=== PATIENT | female | born 1985 | race Caucasian/White ===

== ENCOUNTER 2017-08-20 00:26 | Observation (INO) | payer OTHER ==
[2017-08-20 00:56] LABS: HEMATOCRIT 40.4 % (36.0-47.0); HEMOGLOBIN 13.9 g/dl (12.0-16.0); MEAN CORPUSCULAR HEMOGLOBIN 30.5 pg (27.0-33.0); MEAN CORPUSCULAR HGB CONC 34.4 g/dl (32.0-36.5); MEAN CORPUSCULAR VOLUME 88.6 fl (80.0-96.0); PLATELET COUNT, AUTOMATED 349 10^3/uL (150-450); RED BLOOD COUNT 4.56 10^6/uL (4.00-5.40); RED CELL DISTRIBUTION WIDTH 13.3 % (11.5-14.5); WHITE BLOOD COUNT 9.8 10^3/uL (4.0-10.0)
[2017-08-20] MEDS: NS 1,000 ML IV (01:00)
[2017-08-20 01:30] LABS: AMPHETAMINES LEVEL URINE NEGATIVE (NEGATIVE); BARBITURATES URINE NEGATIVE (NEGATIVE); BENZODIAZEPINES URINE NEGATIVE (NEGATIVE); CANNABINOIDS URINE POSITIVE (NEGATIVE); COCAINE METABOLITE URINE POSITIVE (NEGATIVE); METHADONE URINE NEGATIVE (NEGATIVE); OPIATES URINE NEGATIVE (NEGATIVE); PHENCYCLIDINE URINE NEGATIVE (NEGATIVE)
[2017-08-20 01:35] LABS: ALBUMIN 3.8 GM/DL (3.2-5.2); ALBUMIN/GLOBULIN RATIO 1.15 (1.00-1.93); ALKALINE PHOSPHATASE 46 U/L (45-117); ALT/SGPT 23 U/L (12-78); ANION GAP 11 MEQ/L (8-16); AST/SGOT 12 U/L (7-37); BILIRUBIN,DIRECT < 0.1 MG/DL (0.0-0.2); BILIRUBIN,TOTAL 0.1 MG/DL (0.2-1.0); BLOOD UREA NITROGEN 13 MG/DL (7-18); CALCIUM LEVEL 8.5 MG/DL (8.5-10.1); CARBON DIOXIDE LEVEL 23 MEQ/L (21-32); CHLORIDE LEVEL 106 MEQ/L (98-107); CREATININE FOR GFR 0.91 MG/DL (0.55-1.02); ETHYL ALCOHOL (ETHANOL) 0.157 % (0.000-0.010); GLOMERULAR FILTRATION RATE > 60.0 (>60); GLUCOSE, FASTING 95 MG/DL (70-105); POTASSIUM SERUM 3.7 MEQ/L (3.5-5.1); SALICYLATE LEVEL < 1.7 MG/DL (5.0-30.0); SODIUM LEVEL 140 MEQ/L (136-145); THYROID STIMULATING HORMONE 0.854 uIU/ML (0.358-3.740); TOTAL PROTEIN 7.1 GM/DL (6.4-8.2)
[2017-08-20 01:36] LABS: ACETAMINOPHEN LEVEL < 2.0 UG/ML (10.0-30.0)
[2017-08-20 02:02] LABS: CPK CREATINE PHOSPHOKINASE 117 U/L (26-192); MB/CK RELATIVE INDEX 0.85 (< OR =4); TROPONIN I < 0.02 NG/ML (< 0.10)
[2017-08-20] MEDS ORDERED: BISACODYL 5 MG TAB PO (03:30)
[2017-08-20] MEDS: ONDANSETRON 4MG/2ML VIAL (J2405) IV (06:49)
[2017-08-20] MEDS: ACETAMINOPHEN TAB 650MG DOSE (2X325MG) PO (06:50)
[2017-08-20] MEDS: TOPIRAMATE (TopAMAX) 25 MG TAB PO (09:26)
[2017-08-20] MEDS: CitaloPRAM (CeleXA) 20 MG TAB PO (09:27)
[2017-08-20] MEDS: ENOXAPARIN 40 MG/0.4 ML SYRINGE (J1650) SC (09:27)
[2017-08-20] MEDS: SUMAtriptan SUCCINATE 25 MG TAB PO (09:27)
[2017-08-20] MEDS: SENOKOT S TAB PO ×2 (09:27→21:00)
[2017-08-20] MEDS: PERCOCET 5MG/325MG TAB PO (10:26)
[2017-08-20 12:30] LABS: KETONE, URINE AUTO RFX NEGATIVE (NEGATIVE); LEUKOCYTE ESTERASE UR AUTO RFX NEGATIVE (NEGATIVE); MUCUS, URINE RFX SMALL (NEGATIVE); NITRITE, URINE AUTO RFX NEGATIVE (NEGATIVE); RBC, URINE AUTO RFX 1 /HPF (0-3); SPECIFIC GRAVITY UR AUTO RFX 1.011 (1.002-1.035); SQUAM EPITHELIAL CELL UR AURFX 1 /HPF (0-6); WBC, URINE AUTO RFX 0 /HPF (0-3)
[2017-08-20] MEDS: hydrOXYzine 25 MG TAB PO (21:13)
[2017-08-21 07:18] LABS: BASO % 0.4 % (0.0-1.0); EOS # 0.3 10^3/uL (0.0-0.50); EOS % 3.5 % (0.0-3.0); HEMATOCRIT 40.5 % (36.0-47.0); HEMOGLOBIN 13.5 g/dl (12.0-16.0); IMMATURE GRANULOCYTE % 0.3 % (0-0); LYMPH # 2.8 10^3/uL (1.5-6.5); LYMPH % 40.3 % (24.0-44.0); MEAN CORPUSCULAR HEMOGLOBIN 29.9 pg (27.0-33.0); MEAN CORPUSCULAR HGB CONC 33.3 g/dl (32.0-36.5); MEAN CORPUSCULAR VOLUME 89.8 fl (80.0-96.0); MONO # 0.6 10^3/uL (0.0-0.8); MONO % 8.5 % (0.0-5.0); NEUTROPHILS # 3.3 10^3/uL (1.8-7.7); PLATELET COUNT, AUTOMATED 274 10^3/uL (150-450); RED BLOOD COUNT 4.51 10^6/uL (4.00-5.40); RED CELL DISTRIBUTION WIDTH 13.5 % (11.5-14.5); WHITE BLOOD COUNT 7.1 10^3/uL (4.0-10.0)
[2017-08-21 07:54] LABS: ANION GAP 5 MEQ/L (8-16); BLOOD UREA NITROGEN 12 MG/DL (7-18); CALCIUM LEVEL 8.4 MG/DL (8.5-10.1); CARBON DIOXIDE LEVEL 29 MEQ/L (21-32); CHLORIDE LEVEL 107 MEQ/L (98-107); CREATININE FOR GFR 0.82 MG/DL (0.55-1.02); GLOMERULAR FILTRATION RATE > 60.0 (>60); GLUCOSE, FASTING 89 MG/DL (70-105); POTASSIUM SERUM 4.2 MEQ/L (3.5-5.1); SODIUM LEVEL 141 MEQ/L (136-145)
[2017-08-21] MEDS: SENOKOT S TAB PO (08:57)
[2017-08-21] MEDS: TOPIRAMATE (TopAMAX) 25 MG TAB PO (08:57)
[2017-08-21] MEDS: ENOXAPARIN 40 MG/0.4 ML SYRINGE (J1650) SC (08:57)
[2017-08-21] MEDS: CitaloPRAM (CeleXA) 20 MG TAB PO (08:57)
== END 2017-08-21 15:26 ==
LOC: M ED 00:26 → M ED INP 00:27
DX: T43.8X2A Poisoning by other psychotropic drugs, intentional self-harm, initial encounter (principal); T43.592A Poisoning by other antipsychotics and neuroleptics, intentional self-harm, initial encounter; T51.0X2A Toxic effect of ethanol, intentional self-harm, initial encounter; F12.120 Cannabis abuse with intoxication, uncomplicated; F14.120 Cocaine abuse with intoxication, uncomplicated; R51 Headache; R06.00 Dyspnea, unspecified; F32.9 Major depressive disorder, single episode, unspecified; F19.10 Other psychoactive substance abuse, uncomplicated; F43.10 Post-traumatic stress disorder, unspecified; Z88.5 Allergy status to narcotic agent; Z79.899 Other long term (current) drug therapy; F17.210 Nicotine dependence, cigarettes, uncomplicated
CPT/HCPCS: 96372

== ENCOUNTER 2017-08-21 15:27 | Inpatient (IN) | payer MEDICAID ==
[2017-08-21] MEDS: NICOTINE 21MG/24HR 1 EA TRANSDERMAL TD (09:00)
[2017-08-21] MEDS ORDERED: MAALOX 30 ML SUSP *UDC PO (17:45)
[2017-08-21] MEDS: hydrOXYzine 25 MG TAB PO (18:10)
[2017-08-21] MEDS: ACETAMINOPHEN TAB 650MG DOSE (2X325MG) PO (18:10)
[2017-08-21] MEDS: traZODone 50 MG TAB PO (21:27)
[2017-08-21] MEDS: busPIRone 10 MG TAB PO (21:27)
[2017-08-21] MEDS: PRAZOSIN 1 MG CAP PO (21:28)
[2017-08-22] MEDS: TOPIRAMATE (TopAMAX) 25 MG TAB PO (08:30)
[2017-08-22] MEDS: CitaloPRAM (CeleXA) 20 MG TAB PO (08:30)
[2017-08-22] MEDS: busPIRone 10 MG TAB PO ×2 (08:30→21:18)
[2017-08-22] MEDS: GABAPENTIN 300 MG CAP PO ×3 (08:30→21:18)
[2017-08-22] MEDS: hydrOXYzine 25 MG TAB PO ×3 (08:30→21:40)
[2017-08-22] MEDS: NICOTINE 21MG/24HR 1 EA TRANSDERMAL TD (08:30)
[2017-08-22] MEDS: ACETAMINOPHEN TAB 650MG DOSE (2X325MG) PO (17:36)
[2017-08-22] MEDS: PRAZOSIN 1 MG CAP PO (21:18)
[2017-08-22] MEDS: MOM 30ML SUSPENSION UDC PO (21:27)
[2017-08-22] MEDS: traZODone 50 MG TAB PO (21:39)
[2017-08-22] MEDS: SODIUM CHLORIDE NASAL 0.65% SPRAY BTL (OCEAN) (22:03)
[2017-08-23] MEDS: ACETAMINOPHEN TAB 650MG DOSE (2X325MG) PO (02:39)
[2017-08-23] MEDS: SODIUM CHLORIDE NASAL 0.65% SPRAY BTL (OCEAN) (08:43)
[2017-08-23] MEDS: NICOTINE 21MG/24HR 1 EA TRANSDERMAL TD (08:43)
[2017-08-23] MEDS: busPIRone 10 MG TAB PO (08:43)
[2017-08-23] MEDS: TOPIRAMATE (TopAMAX) 25 MG TAB PO (08:43)
[2017-08-23] MEDS: GABAPENTIN 300 MG CAP PO (08:44)
[2017-08-23] MEDS: hydrOXYzine 25 MG TAB PO (08:44)
[2017-08-23] MEDS: CitaloPRAM (CeleXA) 20 MG TAB PO (08:44)
[2017-08-23] MEDS: INFLUENZA QUADRIVALENT PF VACCINE 0.5ML SYRINGE (90686) IM (12:15)
== END 2017-08-23 14:20 | disposition home or self-care (01) | DRG 882 ==
LOC: M PSY 15:27
DX: F43.10 Post-traumatic stress disorder, unspecified (principal); F31.9 Bipolar disorder, unspecified; F10.10 Alcohol abuse, uncomplicated; Z79.899 Other long term (current) drug therapy; Z88.8 Allergy status to other drugs, medicaments and biological substances; F17.210 Nicotine dependence, cigarettes, uncomplicated

== ENCOUNTER 2017-10-05 21:29 | Emergency (ER) | payer OTHER, BC, MEDICAID ==
[2017-10-05 22:15] LABS: HEMATOCRIT 44.9 % (36.0-47.0); MEAN CORPUSCULAR HEMOGLOBIN 29.8 pg (27.0-33.0); MEAN CORPUSCULAR HGB CONC 33.4 g/dl (32.0-36.5); MEAN CORPUSCULAR VOLUME 89.1 fl (80.0-96.0); PLATELET COUNT, AUTOMATED 320 10^3/uL (150-450); RED BLOOD COUNT 5.04 10^6/uL (4.00-5.40); RED CELL DISTRIBUTION WIDTH 13.2 % (11.5-14.5); WHITE BLOOD COUNT 11.2 10^3/uL (4.0-10.0)
[2017-10-05 22:40] LABS: AMPHETAMINES LEVEL URINE NEGATIVE (NEGATIVE); BARBITURATES URINE NEGATIVE (NEGATIVE); BENZODIAZEPINES URINE NEGATIVE (NEGATIVE); CANNABINOIDS URINE POSITIVE (NEGATIVE); COCAINE METABOLITE URINE POSITIVE (NEGATIVE); METHADONE URINE NEGATIVE (NEGATIVE); OPIATES URINE NEGATIVE (NEGATIVE); PHENCYCLIDINE URINE NEGATIVE (NEGATIVE)
[2017-10-05 22:51] LABS: ALBUMIN 3.9 GM/DL (3.2-5.2); ALBUMIN/GLOBULIN RATIO 1.26 (1.00-1.93); ALKALINE PHOSPHATASE 46 U/L (45-117); ALT/SGPT 33 U/L (12-78); ANION GAP 9 MEQ/L (8-16); AST/SGOT 17 U/L (7-37); BILIRUBIN,DIRECT < 0.1 MG/DL (0.0-0.2); BILIRUBIN,TOTAL 0.2 MG/DL (0.2-1.0); BLOOD UREA NITROGEN 9 MG/DL (7-18); CALCIUM LEVEL 8.5 MG/DL (8.5-10.1); CARBON DIOXIDE LEVEL 26 MEQ/L (21-32); CHLORIDE LEVEL 110 MEQ/L (98-107); CREATININE FOR GFR 0.86 MG/DL (0.55-1.30); ETHYL ALCOHOL (ETHANOL) 0.191 % (0.000-0.010); GLOMERULAR FILTRATION RATE > 60.0 (>60); GLUCOSE, FASTING 111 MG/DL (70-100); POTASSIUM SERUM 3.7 MEQ/L (3.5-5.1); SALICYLATE LEVEL 2.7 MG/DL (5.0-30.0); SODIUM LEVEL 145 MEQ/L (136-145)
[2017-10-05 22:54] LABS: ACETAMINOPHEN LEVEL < 2.0 UG/ML (10.0-30.0)
[2017-10-06] MEDS: ACETAMINOPHEN TAB 650MG DOSE (2X325MG) PO (00:13)
== END 2017-10-06 04:52 | disposition home or self-care (01) ==
LOC: M ED 10-06 04:52
DX: F10.10 Alcohol abuse, uncomplicated (principal); F12.10 Cannabis abuse, uncomplicated; F14.10 Cocaine abuse, uncomplicated; F32.9 Major depressive disorder, single episode, unspecified; F43.10 Post-traumatic stress disorder, unspecified; F17.200 Nicotine dependence, unspecified, uncomplicated; Z79.899 Other long term (current) drug therapy; Z88.6 Allergy status to analgesic agent
CPT/HCPCS: 80320

== ENCOUNTER 2017-12-26 23:16 | Emergency (ER) | payer OTHER ==
[2017-12-27] MEDS: NAPROXEN 250 MG TAB PO (03:35)
== END 2017-12-27 03:55 | disposition home or self-care (01) ==
LOC: M ED 23:16
DX: M25.572 Pain in left ankle and joints of left foot (principal); R29.6 Repeated falls; F17.210 Nicotine dependence, cigarettes, uncomplicated; Z88.5 Allergy status to narcotic agent; Z79.899 Other long term (current) drug therapy
CPT/HCPCS: 73630

== ENCOUNTER 2018-02-27 20:09 | Emergency (ER) | payer OTHER ==
[2018-02-27 21:05] LABS: BASO % 0.3 % (0.0-1.0); EOS # 0.2 10^3/uL (0.0-0.50); EOS % 2.1 % (0.0-3.0); HEMATOCRIT 42.6 % (36.0-47.0); IMMATURE GRANULOCYTE % 0.3 % (0-3.0); LYMPH # 4.2 10^3/uL (1.5-4.5); MEAN CORPUSCULAR HEMOGLOBIN 29.9 pg (27.0-33.0); MEAN CORPUSCULAR HGB CONC 32.9 g/dl (32.0-36.5); MEAN CORPUSCULAR VOLUME 90.8 fl (80.0-96.0); MONO # 0.7 10^3/uL (0.0-0.8); MONO % 7.3 % (0.0-5.0); NEUTROPHILS # 4.6 10^3/uL (1.8-7.7); PLATELET COUNT, AUTOMATED 313 10^3/uL (150-450); RED BLOOD COUNT 4.69 10^6/uL (4.00-5.40); RED CELL DISTRIBUTION WIDTH 13.2 % (11.5-14.5); WHITE BLOOD COUNT 9.8 10^3/uL (4.0-10.0)
[2018-02-27 21:49] LABS: CONTROL LINE HCG INT CTR LINE PRESENT; HCG, SERUM QUALITATIVE NEGATIVE (NEGATIVE)
[2018-02-27] MEDS: NS 1,000 ML IV (21:53)
[2018-02-27] MEDS: ONDANSETRON 4MG/2ML VIAL (J2405) IV (21:53)
[2018-02-27] MEDS: MORPHINE 4 MG/ML 1ML VIAL/SYRINGE (J2270) IV (21:55)
[2018-02-27 21:59] LABS: ALBUMIN 3.6 GM/DL (3.2-5.2); ALBUMIN/GLOBULIN RATIO 1.24 (1.00-1.93); ALKALINE PHOSPHATASE 52 U/L (45-117); ALT/SGPT 32 U/L (12-78); AMYLASE 25 U/L (25-115); ANION GAP 7 MEQ/L (8-16); AST/SGOT 17 U/L (7-37); BILIRUBIN,DIRECT < 0.1 MG/DL (0.0-0.2); BILIRUBIN,TOTAL 0.3 MG/DL (0.2-1.0); BLOOD UREA NITROGEN 14 MG/DL (7-18); CALCIUM LEVEL 8.6 MG/DL (8.5-10.1); CARBON DIOXIDE LEVEL 28 MEQ/L (21-32); CHLORIDE LEVEL 107 MEQ/L (98-107); CREATININE FOR GFR 0.88 MG/DL (0.55-1.30); GLOMERULAR FILTRATION RATE > 60.0 (>60); GLUCOSE, FASTING 88 MG/DL (70-100); LIPASE 106 U/L (73-393); POTASSIUM SERUM 4.1 MEQ/L (3.5-5.1); SODIUM LEVEL 142 MEQ/L (136-145); TOTAL PROTEIN 6.5 GM/DL (6.4-8.2)
[2018-02-27] MEDS: NORCO, ANEXSIA 5/325MG TABLET (HYDROcodone/ACETAMINOPHEN) PO (23:33)
== END 2018-02-27 23:42 | disposition home or self-care (01) ==
LOC: M ED 20:09
DX: K80.20 Calculus of gallbladder without cholecystitis without obstruction (principal); G43.909 Migraine, unspecified, not intractable, without status migrainosus; F33.9 Major depressive disorder, recurrent, unspecified; K21.9 Gastro-esophageal reflux disease without esophagitis; Z79.899 Other long term (current) drug therapy; Z88.8 Allergy status to other drugs, medicaments and biological substances; F17.210 Nicotine dependence, cigarettes, uncomplicated
CPT/HCPCS: J2270

== ENCOUNTER → 2018-03-15 | Outpatient (REF) | payer OTHER ==
[2018-03-15 13:31] LABS: CONTROL LINE UCG INT CTR LINE PRESENT; URINE PREG TEST NEGATIVE (NEGATIVE)
== END ==
LOC: M SFHCPLAZ 13:04
DX: E66.01 Morbid (severe) obesity due to excess calories (principal)

== ENCOUNTER → 2018-03-22 | Outpatient (REF) | payer OTHER ==
[2018-03-22 10:49] LABS: BASO % 0.2 % (0.0-1.0); EOS # 0.2 10^3/uL (0.0-0.50); EOS % 2.6 % (0.0-3.0); HEMATOCRIT 45.9 % (36.0-47.0); HEMOGLOBIN 15.1 g/dl (12.0-15.5); IMMATURE GRANULOCYTE % 0.3 % (0-3.0); LYMPH # 3.1 10^3/uL (1.5-4.5); MEAN CORPUSCULAR HGB CONC 32.9 g/dl (32.0-36.5); MEAN CORPUSCULAR VOLUME 91.3 fl (80.0-96.0); MONO # 0.6 10^3/uL (0.0-0.8); MONO % 6.7 % (0.0-5.0); NEUTROPHILS # 4.9 10^3/uL (1.8-7.7); NEUTROPHILS % 55.2 % (36.0-66.0); PLATELET COUNT, AUTOMATED 303 10^3/uL (150-450); RED BLOOD COUNT 5.03 10^6/uL (4.00-5.40); RED CELL DISTRIBUTION WIDTH 13.7 % (11.5-14.5)
[2018-03-22 11:10] LABS: ESTIMATED AVERAGE GLUCOSE 103 MG/DL (60-110); HEMOGLOBIN A1c 5.2 %
[2018-03-22 11:18] LABS: CONTROL LINE HCG INT CTR LINE PRESENT; HCG, SERUM QUALITATIVE NEGATIVE (NEGATIVE)
[2018-03-22 11:34] LABS: ALBUMIN 3.8 GM/DL (3.2-5.2); ALBUMIN/GLOBULIN RATIO 1.09 (1.00-1.93); ALKALINE PHOSPHATASE 51 U/L (45-117); ALT/SGPT 31 U/L (12-78); ANION GAP 4 MEQ/L (8-16); AST/SGOT 20 U/L (7-37); BILIRUBIN,TOTAL 0.4 MG/DL (0.2-1.0); BLOOD UREA NITROGEN 13 MG/DL (7-18); CALCIUM LEVEL 8.8 MG/DL (8.5-10.1); CARBON DIOXIDE LEVEL 30 MEQ/L (21-32); CHLORIDE LEVEL 107 MEQ/L (98-107); CHOLESTEROL LEVEL 193 MG/DL (<200); CHOLESTEROL RISK RATIO 4.488 (<5); FREE T4 0.98 NG/DL (0.76-1.46); GLOMERULAR FILTRATION RATE > 60.0 (>60); GLUCOSE, FASTING 78 MG/DL (70-100); HDL CHOLESTEROL 43 MG/DL (>40); LDL CHOLESTEROL 120.6 MG/DL (<100); NON-HDL-C 150 MG/DL; POTASSIUM SERUM 3.9 MEQ/L (3.5-5.1); SODIUM LEVEL 141 MEQ/L (136-145); TOTAL PROTEIN 7.3 GM/DL (6.4-8.2); TRIGLYCERIDES LEVEL 147 MG/DL (<150)
[2018-03-22 12:00] LABS: CONTROL LINE UCG INT CTR LINE PRESENT; URINE PREG TEST NEGATIVE (NEGATIVE)
== END ==
LOC: M SFHCPLAZ 09:06
DX: I10 Essential (primary) hypertension (principal); E66.01 Morbid (severe) obesity due to excess calories
CPT/HCPCS: 84443

== ENCOUNTER 2018-03-30 10:26 | Day surgery (SDC) | payer OTHER ==
[2018-03-30] MEDS: NS 1,000 ML IV (11:09)
[2018-03-30] MEDS ORDERED: LIDOCAINE 2% INJ 100 MG/5 ML SDV (FOR ANES.) As Ordered (11:17)
[2018-03-30] MEDS ORDERED: PROPOFOL 200 MG/20 ML VIAL As Ordered (11:17)
== END 2018-03-30 12:30 | disposition home or self-care (01) ==
LOC: M OPP 10:26
DX: R10.13 Epigastric pain (principal); R10.11 Right upper quadrant pain; I10 Essential (primary) hypertension; K21.9 Gastro-esophageal reflux disease without esophagitis; R12 Heartburn; F41.9 Anxiety disorder, unspecified; F32.9 Major depressive disorder, single episode, unspecified; G43.909 Migraine, unspecified, not intractable, without status migrainosus; N32.81 Overactive bladder; F17.210 Nicotine dependence, cigarettes, uncomplicated; Z88.8 Allergy status to other drugs, medicaments and biological substances; Z79.899 Other long term (current) drug therapy
CPT/HCPCS: 43235

== ENCOUNTER 2018-04-20 08:20 | Observation (INO) | payer MEDICAID, OTHER ==
[2018-04-20 09:08] LABS: BASO % 0.3 % (0.0-1.0); EOS # 0.2 10^3/uL (0.0-0.50); EOS % 1.8 % (0.0-3.0); HEMATOCRIT 46.5 % (36.0-47.0); HEMOGLOBIN 15.4 g/dl (12.0-15.5); IMMATURE GRANULOCYTE % 0.3 % (0-3.0); LYMPH # 1.5 10^3/uL (1.5-4.5); LYMPH % 12.9 % (24.0-44.0); MEAN CORPUSCULAR HGB CONC 33.1 g/dl (32.0-36.5); MEAN CORPUSCULAR VOLUME 90.5 fl (80.0-96.0); MONO % 8.7 % (0.0-5.0); NEUTROPHILS # 8.8 10^3/uL (1.8-7.7); PLATELET COUNT, AUTOMATED 320 10^3/uL (150-450); RED BLOOD COUNT 5.14 10^6/uL (4.00-5.40); RED CELL DISTRIBUTION WIDTH 13.6 % (11.5-14.5); WHITE BLOOD COUNT 11.6 10^3/uL (4.0-10.0)
[2018-04-20] MEDS: IPRATROPIUM 0.5MG/ALBUTEROL 2.5MG INH SOL UD 3ML (DUONEB)(J7620) NEB ×3 (09:18→09:36)
[2018-04-20 09:24] LABS: D-DIMER QUANT 286.7 ng/ml (<500)
[2018-04-20 09:42] LABS: INFLUENZA A AMPLIFICATION NEGATIVE (NEGATIVE); INFLUENZA B AMPLIFICATION NEGATIVE (NEGATIVE)
[2018-04-20 09:43] LABS: ALBUMIN 4.1 GM/DL (3.2-5.2); ALBUMIN/GLOBULIN RATIO 1.11 (1.00-1.93); ALKALINE PHOSPHATASE 55 U/L (45-117); ALT/SGPT 22 U/L (12-78); ANION GAP 12 MEQ/L (8-16); AST/SGOT 12 U/L (7-37); BILIRUBIN,DIRECT 0.1 MG/DL (0.0-0.2); BILIRUBIN,TOTAL 0.3 MG/DL (0.2-1.0); BLOOD UREA NITROGEN 11 MG/DL (7-18); CALCIUM LEVEL 8.9 MG/DL (8.5-10.1); CARBON DIOXIDE LEVEL 24 MEQ/L (21-32); CHLORIDE LEVEL 105 MEQ/L (98-107); CREATININE FOR GFR 0.85 MG/DL (0.55-1.30); GLOMERULAR FILTRATION RATE > 60.0 (>60); GLUCOSE, FASTING 98 MG/DL (70-100); SODIUM LEVEL 141 MEQ/L (136-145); THYROID STIMULATING HORMONE 0.527 uIU/ML (0.358-3.740); TOTAL PROTEIN 7.8 GM/DL (6.4-8.2)
[2018-04-20] MEDS: methylPREDNISolone INJ 125 MG/2 ML VIAL (J2930) IV (11:31)
[2018-04-20 11:46] LABS: CONTROL LINE HCG INT CTR LINE PRESENT; HCG, SERUM QUALITATIVE NEGATIVE (NEGATIVE)
[2018-04-20] MEDS ORDERED: ISOVUE-370 76% 100ML VIAL (Q9967) As Ordered (11:51)
[2018-04-20] MEDS: PANTOPRAZOLE 40MG TAB (PROTONIX) PO (13:23)
[2018-04-20] MEDS: amLODIPine 5 MG TAB PO (13:23)
[2018-04-20] MEDS: NS 1,000 ML IV ×2 (13:26→20:25)
[2018-04-20] MEDS: ACETAMINOPHEN TAB 650MG DOSE (2X325MG) PO ×2 (13:36→20:26)
[2018-04-20] MEDS ORDERED: ACETAMINOPHEN 325 MG TAB As Ordered (13:37)
[2018-04-20] MEDS: ALBUTEROL SULFATE 2.5 MG/0.5 ML INH NEB SOLN NEB ×2 (16:44→20:59)
[2018-04-20] MEDS: metFORMIN XR 500MG TAB *GLUCOPHAGE XR PO (17:55)
[2018-04-20] MEDS: ENOXAPARIN 40 MG/0.4 ML SYRINGE (J1650) SC (17:56)
[2018-04-20] MEDS: IBUPROFEN 800 MG TAB PO (18:33)
[2018-04-20] MEDS: methylPREDNISolone INJ 40 MG/1 ML VIAL (J2920) IV (20:25)
[2018-04-20] MEDS: ONDANSETRON 4 MG ORAL DISINTEGRATING TAB (Q0162 PER 1MG) PO (20:26)
[2018-04-20] MEDS: SUMAtriptan SUCCINATE 25 MG TAB PO (23:48)
[2018-04-21] MEDS: methylPREDNISolone INJ 40 MG/1 ML VIAL (J2920) IV ×3 (03:58→20:31)
[2018-04-21] MEDS: ALBUTEROL SULFATE 2.5 MG/0.5 ML INH NEB SOLN NEB ×5 (04:37→20:00)
[2018-04-21 06:08] LABS: BASO % 0.1 % (0.0-1.0); HEMATOCRIT 40.4 % (36.0-47.0); IMMATURE GRANULOCYTE % 0.7 % (0-3.0); LYMPH # 1.1 10^3/uL (1.5-4.5); LYMPH % 10.1 % (24.0-44.0); MEAN CORPUSCULAR HEMOGLOBIN 29.5 pg (27.0-33.0); MEAN CORPUSCULAR HGB CONC 32.7 g/dl (32.0-36.5); MEAN CORPUSCULAR VOLUME 90.2 fl (80.0-96.0); MONO # 0.4 10^3/uL (0.0-0.8); MONO % 3.2 % (0.0-5.0); NEUTROPHILS # 9.7 10^3/uL (1.8-7.7); NEUTROPHILS % 85.9 % (36.0-66.0); PLATELET COUNT, AUTOMATED 291 10^3/uL (150-450); RED BLOOD COUNT 4.48 10^6/uL (4.00-5.40); RED CELL DISTRIBUTION WIDTH 13.9 % (11.5-14.5); WHITE BLOOD COUNT 11.3 10^3/uL (4.0-10.0)
[2018-04-21 06:15] LABS: HEMOGLOBIN 13.2 g/dl (12.0-15.5)
[2018-04-21 06:28] LABS: ANION GAP 9 MEQ/L (8-16); BLOOD UREA NITROGEN 12 MG/DL (7-18); CALCIUM LEVEL 8.6 MG/DL (8.5-10.1); CARBON DIOXIDE LEVEL 23 MEQ/L (21-32); CHLORIDE LEVEL 107 MEQ/L (98-107); CREATININE FOR GFR 0.64 MG/DL (0.55-1.30); GLOMERULAR FILTRATION RATE > 60.0 (>60); GLUCOSE, FASTING 143 MG/DL (70-100); SODIUM LEVEL 139 MEQ/L (136-145)
[2018-04-21] MEDS ORDERED: metFORMIN XR 500MG TAB *GLUCOPHAGE XR PO (08:00)
[2018-04-21] MEDS: IBUPROFEN 800 MG TAB PO (10:26)
[2018-04-21] MEDS: amLODIPine 5 MG TAB PO (10:27)
[2018-04-21] MEDS: PANTOPRAZOLE 40MG TAB (PROTONIX) PO (10:27)
[2018-04-21] MEDS: metFORMIN XR 500MG TAB *GLUCOPHAGE XR PO ×2 (10:27→17:38)
[2018-04-21] MEDS: NS 1,000 ML IV (10:28)
[2018-04-21] MEDS: ENOXAPARIN 40 MG/0.4 ML SYRINGE (J1650) SC (10:28)
[2018-04-21] MEDS: INFLUENZA QUADRIVALENT PF VACCINE 0.5ML SYRINGE (90686) IM (10:29)
[2018-04-21] MEDS: ONDANSETRON 4 MG ORAL DISINTEGRATING TAB (Q0162 PER 1MG) PO ×2 (12:36→18:07)
[2018-04-21] MEDS: ACETAMINOPHEN TAB 650MG DOSE (2X325MG) PO (12:36)
[2018-04-21] MEDS: SUMAtriptan SUCCINATE 25 MG TAB PO ×2 (14:51→18:07)
[2018-04-21] MEDS: cefTRIAXone SOD 1 GM in D5W MINI-BAG PLUS 50 ML IV (14:52)
[2018-04-21] MEDS: AZITHROMYCIN INJ 500 MG, VIAL MATE ADAPTER 1 EACH in D5W 250 ML IV (17:38)
[2018-04-22] MEDS: methylPREDNISolone INJ 40 MG/1 ML VIAL (J2920) IV ×2 (04:48→12:00)
[2018-04-22] MEDS: ALBUTEROL SULFATE 2.5 MG/0.5 ML INH NEB SOLN NEB ×2 (07:05→11:10)
[2018-04-22] MEDS: ONDANSETRON 4 MG ORAL DISINTEGRATING TAB (Q0162 PER 1MG) PO (07:49)
[2018-04-22] MEDS: PANTOPRAZOLE 40MG TAB (PROTONIX) PO (08:04)
[2018-04-22] MEDS: ENOXAPARIN 40 MG/0.4 ML SYRINGE (J1650) SC (08:04)
[2018-04-22] MEDS: amLODIPine 5 MG TAB PO (08:04)
[2018-04-22] MEDS: metFORMIN XR 500MG TAB *GLUCOPHAGE XR PO (08:04)
== END 2018-04-22 12:10 | disposition home or self-care (01) ==
LOC: M ED 08:20 → M ED INP 12:58 → M MSPAV 15:37
DX: J45.901 Unspecified asthma with (acute) exacerbation (principal); J18.9 Pneumonia, unspecified organism; G43.909 Migraine, unspecified, not intractable, without status migrainosus; D35.01 Benign neoplasm of right adrenal gland; E66.9 Obesity, unspecified; I10 Essential (primary) hypertension; Z79.52 Long term (current) use of systemic steroids; Z79.51 Long term (current) use of inhaled steroids; Z79.84 Long term (current) use of oral hypoglycemic drugs; Z88.8 Allergy status to other drugs, medicaments and biological substances; F31.9 Bipolar disorder, unspecified; K21.9 Gastro-esophageal reflux disease without esophagitis; F43.10 Post-traumatic stress disorder, unspecified
CPT/HCPCS: J0456

== ENCOUNTER → 2018-05-03 | Outpatient (REF) | payer MEDICAID ==
[2018-05-03 17:13] LABS: HEMATOCRIT 45.8 % (36.0-47.0); HEMOGLOBIN 14.9 g/dl (12.0-15.5); MEAN CORPUSCULAR HEMOGLOBIN 29.9 pg (27.0-33.0); MEAN CORPUSCULAR HGB CONC 32.5 g/dl (32.0-36.5); PLATELET COUNT, AUTOMATED 360 10^3/uL (150-450); RED BLOOD COUNT 4.98 10^6/uL (4.00-5.40); RED CELL DISTRIBUTION WIDTH 15.4 % (11.5-14.5); WHITE BLOOD COUNT 15.9 10^3/uL (4.0-10.0)
[2018-05-03 17:14] LABS: ADD MANUAL DIFFER YES; DIFF SLIDE NUMBER 322; POSITIVE DIFF POS FLAG
[2018-05-03 17:29] LABS: ALBUMIN 3.8 GM/DL (3.2-5.2); ALBUMIN/GLOBULIN RATIO 1.31 (1.00-1.93); ALKALINE PHOSPHATASE 49 U/L (45-117); ALT/SGPT 29 U/L (12-78); ANION GAP 8 MEQ/L (8-16); AST/SGOT 11 U/L (7-37); BILIRUBIN,TOTAL 0.3 MG/DL (0.2-1.0); BLOOD UREA NITROGEN 10 MG/DL (7-18); CALCIUM LEVEL 9.2 MG/DL (8.5-10.1); CARBON DIOXIDE LEVEL 29 MEQ/L (21-32); CHLORIDE LEVEL 108 MEQ/L (98-107); CREATININE FOR GFR 0.91 MG/DL (0.55-1.30); GLOMERULAR FILTRATION RATE > 60.0 (>60); GLUCOSE, FASTING 76 MG/DL (70-100); POTASSIUM SERUM 5.1 MEQ/L (3.5-5.1); SODIUM LEVEL 145 MEQ/L (136-145); TOTAL PROTEIN 6.7 GM/DL (6.4-8.2)
[2018-05-03 17:54] LABS: ATYPICAL LYMPH 3 % (0-5); BASOPHILS 1 % (0-4); EOSINOPHILS 4 % (0-5); LYMPHOCYTES 26 % (16-52); MONOCYTES 5 % (0-8); NEUTROPHILS 61 % (35-75); PLATELET ESTIMATE NORMAL (NORMAL)
== END ==
LOC: M SFHCPLAZ 14:51
DX: J18.1 Lobar pneumonia, unspecified organism (principal)

== ENCOUNTER 2018-12-13 00:16 | Emergency (ER) | payer MEDICAID, OTHER ==
[~2018-12-13] VITALS: Ht 160 cm; Wt 90.0 kg
[~2018-12-13 00:16] MED LIST: ALB2.5NEB NEB; AMBI10TA PO; AMLO5TAB6 PO; ANUS2.5C2 PR; AZIT-12 PO; BUSP10TA PO; BUSP15TA47 PO; CAMP333T PO; CEFU50TA PO; CELE10TA PO; CELE20TA PO; CELE40TA PO; CENTTAB10 PO; DOCU5LIQ PO; FLON0.054; FOLI1TAB11 PO; GABA-843 PO; GABA600T4 PO; GLUCTAB2 PO; HYDR-3363 PO; HYDR-3713 PO; HYDR-3715 PO; HYDR50TA70 PO; LITH1TAB4 PO; MAPA325T2 PO; MAPA500T17 PO; METF-414 PO; METF10004 PO; METF500T13 PO; MINI1CAP PO; MOM30SS PO; NAPR-837 PO; OMEP20CA3 PO; OMEP40CA2 PO; OXYC1TAB23 PO; PANT40TA3 PO; PATIENT COMMENT; PERC5TAB12 PO; PRAZ2CAP PO; PRED20TA PO; PRENTAB74 PO; PRIL20CA9 PO; SERO1TAB PO; THIA100T7 PO; TOPA50TA8 PO; TRAZ-163 PO; Thiamine Hcl PO; VIST50CA PO; VITMTA PO; ZOFR4TAB14 PO; [UNRECOGNIZED DRUG - OTHER] PO; no home meds
[2018-12-13] MEDS ORDERED: NS 1,000 ML IV ONE (01:15)
[2018-12-13] MEDS ORDERED: PHENobarbital INJ 65 MG/ML VIAL (J2560) IV ONE (01:15)
[2018-12-13 01:42] LABS: BASO % 0.3 % (0.0-1.0); EOS # 0.1 10^3/uL (0.0-0.50); EOS % 0.8 % (0.0-3.0); HEMATOCRIT 39.5 % (36.0-47.0); HEMOGLOBIN 12.9 g/dl (12.0-15.5); LYMPH # 3.1 10^3/uL (1.5-4.5); LYMPH % 26.3 % (24.0-44.0); MEAN CORPUSCULAR HGB CONC 32.7 g/dl (32.0-36.5); MEAN CORPUSCULAR VOLUME 91.9 fl (80.0-96.0); MONO # 0.8 10^3/uL (0.0-0.8); MONO % 6.7 % (0.0-5.0); NEUTROPHILS # 7.6 10^3/uL (1.8-7.7); NEUTROPHILS % 65.6 % (36.0-66.0); PLATELET COUNT, AUTOMATED 286 10^3/uL (150-450); WHITE BLOOD COUNT 11.6 10^3/uL (4.0-10.0)
[2018-12-13 02:32] LABS: BLOOD UREA NITROGEN 11 MG/DL (7-18); CALCIUM LEVEL 8.2 MG/DL (8.5-10.1); CARBON DIOXIDE LEVEL 27 MEQ/L (21-32); CHLORIDE LEVEL 106 MEQ/L (98-107); CPK CREATINE PHOSPHOKINASE 129 U/L (26-192); CREATININE FOR GFR 0.67 MG/DL (0.55-1.30); GLOMERULAR FILTRATION RATE > 60.0 (>60); GLUCOSE, FASTING 88 MG/DL (70-100); POTASSIUM SERUM 3.7 MEQ/L (3.5-5.1); SODIUM LEVEL 143 MEQ/L (136-145)
[2018-12-13 03:30] VITALS: BP 136/86
== END 2018-12-13 03:42 | disposition home or self-care (01) ==
LOC: M ED 00:16
DX: F15.10 Other stimulant abuse, uncomplicated (principal); G43.909 Migraine, unspecified, not intractable, without status migrainosus; Z79.899 Other long term (current) drug therapy; Z88.8 Allergy status to other drugs, medicaments and biological substances; F17.210 Nicotine dependence, cigarettes, uncomplicated
CPT/HCPCS: 80048; 82550; 85025; 96361; 96374; 99284; J2560

== ENCOUNTER 2019-04-16 16:55 | Inpatient (IN) | payer OTHER ==
[~2019-04-16] VITALS: Ht 157.5 cm; Wt 85.9 kg
[2019-04-16] MEDS: DOCUSATE SODIUM 100 MG CAP PO SCH (01:16)
[~2019-04-16 16:55] MED LIST changes: +OMEP1CAP73 PO; -OMEP20CA3 PO; -OMEP40CA2 PO; +OMEP40CA97 PO; -TRAZ-163 PO; +TRAZ-257 PO
[2019-04-16 18:01] LABS: HEMATOCRIT 43.1 % (36.0-47.0); HEMOGLOBIN 14.5 g/dl (12.0-15.5); MEAN CORPUSCULAR HEMOGLOBIN 30.2 pg (27.0-33.0); MEAN CORPUSCULAR HGB CONC 33.6 g/dl (32.0-36.5); MEAN CORPUSCULAR VOLUME 89.8 fl (80.0-96.0); PLATELET COUNT, AUTOMATED 163 10^3/uL (150-450); WHITE BLOOD COUNT 5.3 10^3/uL (4.0-10.0)
[2019-04-16] MEDS ORDERED: PANTOPRAZOLE 40MG INJ (PROTONIX) (C9113) IV ONE (18:15)
[2019-04-16] MEDS ORDERED: diazePAM 10 MG/2 ML INJ (J3360) IV ONE (18:15)
[2019-04-16] MEDS ORDERED: ONDANSETRON 4MG/2ML VIAL (J2405) IV ONE (18:15)
[2019-04-16] MEDS ORDERED: NS 1,000 ML IV ONE (18:15)
[2019-04-16 18:33] LABS: ATYPICAL LYMPH 7 % (0-5); LYMPHOCYTES 20 % (16-44); MONOCYTES 5 % (0-5); NEUTROPHILS 63 % (28-66)
[2019-04-16 18:34] LABS: PLATELET ESTIMATE NORMAL (NORMAL)
[2019-04-16 18:40] LABS: HCG, SERUM QUALITATIVE NEGATIVE (NEGATIVE)
[2019-04-16 18:45] LABS: AMPHETAMINES LEVEL URINE POSITIVE (NEGATIVE); BARBITURATES URINE NEGATIVE (NEGATIVE); BENZODIAZEPINES URINE POSITIVE (NEGATIVE); CANNABINOIDS URINE POSITIVE (NEGATIVE); COCAINE METABOLITE URINE NEGATIVE (NEGATIVE); METHADONE URINE NEGATIVE (NEGATIVE); OPIATES URINE NEGATIVE (NEGATIVE); PHENCYCLIDINE URINE NEGATIVE (NEGATIVE)
[2019-04-16] MEDS ORDERED: KETOROLAC 30 MG/ML VIAL (J1885) IV ONE (18:45)
[2019-04-16 19:14] LABS: ALBUMIN 3.4 GM/DL (3.2-5.2); ALT/SGPT 3411 U/L (12-78); BILIRUBIN,DIRECT 3.3 MG/DL (0.0-0.2); BILIRUBIN,TOTAL 3.9 MG/DL (0.2-1.0); BLOOD UREA NITROGEN 13 MG/DL (7-18); CALCIUM LEVEL 8.5 MG/DL (8.5-10.1); CARBON DIOXIDE LEVEL 24 MEQ/L (21-32); CHLORIDE LEVEL 103 MEQ/L (98-107); CREATININE FOR GFR 0.93 MG/DL (0.55-1.30); GLOMERULAR FILTRATION RATE > 60.0 (>60); GLUCOSE, FASTING 104 MG/DL (70-100); LIPASE 88 U/L (73-393); POTASSIUM SERUM 3.5 MEQ/L (3.5-5.1); SODIUM LEVEL 137 MEQ/L (136-145); TOTAL PROTEIN 6.3 GM/DL (6.4-8.2)
[2019-04-16] MEDS ORDERED: ISOVUE-370 76% 100ML VIAL (Q9967) As Ordered ONE (19:25)
[2019-04-16 20:10] LABS: INR 1.67; PROTHROMBIN TIME 19.4 SECONDS (11.8-14.0)
--- NOTE | 2019-04-16 20:50 | REPVR ---
EXAM: CT Abdomen and Pelvis With Contrast EXAM DATE/TIME: 04/16/2019 7:34 PM CLINICAL HISTORY: 33 years old, female; Abdominal pain; Localized; Left lower quadrant (llq); Additional info: Llq pain TECHNIQUE: Imaging protocol: Computed tomography of the abdomen and pelvis with intravenous contrast. Radiation optimization: All CT scans at this facility use at least one of these dose optimization techniques: automated exposure control; mA and/or kV adjustment per patient size (includes targeted exams where dose is matched to clinical indication); or iterative reconstruction. Contrast material: ISOVUE 100; Contrast volume: 100 ml; Contrast route: IV; COMPARISON: CT ABD/PEL W/IV CONTRAST ONLY 06/04/2017 9:45 PM FINDINGS: Lungs: Minimal bibasilar fibro-atelectatic change and interstitial prominence. Liver: The liver attenuation is 74 Hounsfield units and the spleen is 104 Hounsfield units. Gallbladder and bile ducts: Normal. No calcified stones. No ductal dilation. Pancreas: Normal. No ductal dilation. Spleen: The spleen measures 13.5 cm. Adrenals: Fatty nodule of the right adrenal measuring 14 x 18 x 19 mm. Kidneys and ureters: Normal. No hydronephrosis. Stomach and bowel: Unremarkable. No obstruction. No mucosal thickening. Appendix: A normal retrocecal appendix is seen. Intraperitoneal space: Unremarkable. No free air. No significant fluid collection. Vasculature: Unremarkable. No abdominal aortic aneurysm. Lymph nodes: Unremarkable. No enlarged lymph nodes. Bladder: Unremarkable as visualized. Reproductive: The ovaries appear normal and symmetric. Bones/joints: Unremarkable. No acute fracture. Soft tissues: Mild pericholecystic fluid or wall edema along liver interface. IMPRESSION: 1. Mild pericholecystic fluid or wall edema along liver interface, new since 06/04/2017. No gallstones are seen. 2. Borderline splenomegaly. 3. Small fatty nodule the right adrenal measuring 14 x 18 x 19 mm which is increased since the prior study. 4. Otherwise negative CT abdomen/pelvis. Electronically signed by: Reinaldo Brown On 04/16/2019 20:49:49 PM
--- NOTE | 2019-04-16 22:07 | REPVR ---
EXAM: US Abdomen Limited, Right Upper Quadrant EXAM DATE/TIME: 04/16/2019 9:43 PM CLINICAL HISTORY: 33 years old, female; Pain and abnormal findings; Abnormal lab test; Abnormal function test of other organs/systems; Abdominal pain; Acute; Additional info: Elevated bilirubin/abd pain TECHNIQUE: Imaging protocol: Real-time ultrasound of the abdomen with image documentation. Examination was focused on the right upper quadrant. COMPARISON: GALLBLADDER US 02/27/2018 9:54 PM FINDINGS: Liver: The liver demonstrates no focal defects. Gallbladder: The gallbladder demonstrates wall thickening measuring 4-5 mm with internal sludge and no stones. Common bile duct: The CBD measures 5 mm. Pancreas: The pancreas is normal. Right kidney: The right kidney is normal measuring 10.9 cm. IMPRESSION: 1. Gallbladder wall thickening measuring 4-5 mm with internal sludge and no stones. 2. Otherwise negative right upper quadrant sonogram. Electronically signed by: Reinaldo Brown On 04/16/2019 22:07:18 PM
[2019-04-16] MEDS ORDERED: MAALOX 30 ML SUSP *UDC PO PRN (23:45)
[2019-04-16] MEDS ORDERED: MOM 30ML SUSPENSION UDC PO PRN (23:45)
[2019-04-16] MEDS ORDERED: ACETAMINOPHEN TAB 650MG DOSE (2X325MG) PO PRN (23:45)
[2019-04-17] MEDS ORDERED: traMADol 50 MG TAB PO PRN
[2019-04-17 00:58] LABS: AMYLASE 14 U/L (25-115)
[2019-04-17] MEDS ORDERED: NS 1,000 ML IV SCH (01:15)
--- NOTE | 2019-04-17 02:04 | HPEPDOC ---
General Date of Admission Apr 16, 2019 at 23:39 Date of Service: Apr 16, 2019 Attending Physician: NOEMY CORTÉS DO Chief Complaint The patient is a 33-year-old female admitted with a reason for visit of Cholestasis,Hepatitis. Source: Patient, RN/MD, RN notes reviewed Exam Limitations: No limitations Timing/Duration: Getting worse, Changing over time Associated Symptoms: Cough, Headaches, Loss of appetite, Malaise, Nausea, Vomiting, Other (abdominal pain) History of Present Illness Patient treated and seen on @2350 33-year-old female arrives to [facility] ED ambulating with complaints of sharp, stabbing epigastric, periumbilical abdominal pain that radiates to the right upper quadrant that worsened over the last few days that is followed by nausea and vomiting. She reports that she has been smoking methamphetamine with her last time smoking 6:00 this morning and she currently smokes 3-4 packs of cigarettes daily with alcohol frequently. She has significant medical history, reporting essential hypertension for which she was taking amlodipine for it, but is no longer taking it. She doesn't remember the last time she had medication and PTSD for which she is no longer taking medication. CT abdomen completed showing enlargement and thickening gallbladder without stones and without obstruction. At this time and lab work shows elevated LFTs. In reviewing patient's medical history, and physical exam, plus her comorbidities. Patient has the capacity to decompensate rapidly. The she will be admitted inpatient Med-Surg unit under hospitalist service for further evaluation. Home Medications No Active Prescriptions or Reported Meds Allergies Coded Allergies: ketorolac (Verified Allergy, Mild, numbness tingling, restless legs, 12/13/18) Past Medical History Medical History Essential hypertension, anxiety, depression, PTSD, polysubstance abuse, nicotine abuse, alcohol abuse, asthma, GERD, ectopic , migraine, MRSA on the left axillary history Surgical History LEEP, tonsillectomy and adenoids Family History Significant Family History: Heart disease (DadMI 2), Hypertension (Dad), Hyperlipidemia (dad), Other ( Momthyroid) Social History * Smoker: current smoker, less than 1 pack/day, cigarettes Drugs: marijuana, IV drug use, other (meth daily, started using approximately 9 months) Recent Travel/Sick Contacts: Denies: Recent travel, Recent sick contacts Psychosocial History: Afshin SI and HI (previous SI attempts, multiple), Depression, PTSD A-FIB/CHADSVASC A-FIB History Current/History of A-Fib/PAF?: No Review of Systems Constitutional: Reports: Malaise, Fatigue Eyes: Reports: Pain ENT: Reports: Head Aches, Dysphagia Skin: Reports: Bruising, Itching, Other (jones/scarring brachial-bilateral forearms) Pulmonary: Denies: Dyspnea, Cough, Pleuritic Chest Pain, Other Symptoms Cardiovascular: Denies: Chest Pain, Palpitations, Orthopnea, Paroxysmal Noc. Dyspnea, Edema, Lt Headedness, Other Symptoms Gastrointestinal: Reports: Nausea, Abdominal Pain Genitourinary: Denies: Dysuria, Frequency, Incontinence, Hematuria, Retention, Other Symptoms Hematologic: Reports: Bruising Endocrine: Denies: Polydipsia, Polyphagia, Polyuria, Heat Intolerance, Cold Intolerance, Other Endocrine Sx Neurological: Denies: Weakness, Numbness, Incoordination, Change in speech, Confusion, Seizures, Other Symptoms Psych: Reports: Anxiety, Depression Physical Examination General Exam: Positive: Alert, Cooperative, Mild Distress Eye Exam: Positive: PERRLA, Conjunctiva & lids normal, Sclera icteric ENT Exam: Positive: Atraumatic, Mucous membr. moist/pink, Pharynx Normal, Tongue Midline Neck Exam: Positive: Supple, +2 carotid pulse wo bruit Chest Exam: Positive: Clear to auscultation, Diminished (right apical lobe & bilateral base lobe) Heart Exam: Positive: Rate Normal, Normal S1, Normal S2 Telemetry: Negative: No significant arrhythmia, Sinus, Atrial fibrillation, Tachycardia, Bradycardia, AV Block, Pause, SV Tach, PVCs, PACs, Asystole, Other Telemetry: Abdomen Exam: Positive: Normal bowel sounds, Soft, Tenderness (Epigastric, RUQ, LUQ to palpation) Extremity Exam: Positive: Normal pulses Skin Exam: Positive: Nl turgor and temperature, Other skin issue (needle track jones bilateral forearms with brown skin discoloration surrounding entry into the skin, tattoos lower legs) Neuro Exam: Positive: Normal Gait, Normal Speech, Cranial Nerves 3-12 NL Psych Exam: Positive: Anxiety, Oriented x 3 Vital Signs Vital Signs Date Time Temp Pulse Resp B/P (MAP) Pulse Ox O2 Delivery O2 Flow Rate FiO2 04/16/19 21:23 97.0 83 18 116/70 (85) 100 04/16/19 16:55 Room Air Height (in): 62 Weight (kg): 84.6 BMI (kg): 34.1 Laboratory Data Labs 24H Laboratory Tests 2 04/16/19 17:56: Nucleated Red Blood Cells % (auto) 0.0, Neutrophils 63, Band Neutrophils 5, Lymphocytes (Manual) 20, Monocytes (Manual) 5, Atypical Lymphocytes 7H, Platelet Estimate NORMAL, Red Blood Cell Morphology NORMAL, Anion Gap 10, Glomerular Filt ration Rate > 60.0, Calcium Level 8.5, Aspartate Amino Transf (AST/SGOT) 3062H, Alanine Aminotransferase (ALT/SGPT) 3411H, Alkaline Phosphatase 153H, Total Bilirubin 3.9H, Direct Bilirubin 3.3H, Total Protein 6.3L, Albumin 3.4, Albumin/Globulin Ratio 1.17, Lipase 88, Human Chorionic Gonadotropin, Qual NEGATIVE 04/16/19 18:10: Urine Color SYLVIA, Urine Appearance CLOUDYH, Urine pH 5.0, Urine Specific [place] 1.038, Urine Protein 2+H, Urine Glucose (UA) NEGATIVE, Urine Ketones TRACEH, Urine Blood 2+H, Urine Nitrite NEGATIVE, Urine Bilirubin 2+H, Urine Urobilinogen 4.0H, Urine Leukocyte Esterase NEGATIVE, Urine WBC (Auto) 2, Urine RBC (Auto) 32H, Urine Hyaline Casts (Auto) 5, Urine Bacteria (Auto) NEGATIVE, Urine Squamous Epithelial Cells 13, Urine Amorphous Sediment SMALLH, Urine Mucus (Auto) SMALL, Urine Sperm (Auto) , Lactic Acid Level 1.3, Urine Amphetamines Screen POSITIVEH, Urine Benzodiazepines Screen POSITIVEH, Urine Opiates Screen NEGATIVE, Urine Methadone Screen NEGATIVE, Urine Barbiturates Screen NEGATIVE, Urine Phencyclidine Screen NEGATIVE, Urine Cocaine Metabolite Screen NEGATIVE, Urine Cannabinoids Screen POSITIVEH 04/16/19 19:47: Prothrombin Time 19.4H, Prothromb Time International Ratio 1.67, Ammonia < 10 CBC/BMP Laboratory Tests 04/16/19 17:56 Red Blood Count 4.80, Mean Corpuscular Volume 89.8, Mean Corpuscular Hemoglobin 30.2, Mean Corpuscular Hemoglobin Concent 33.6, Red Cell Distribution Width 12.9 Microbiology Microbiology 04/16/19 Blood Culture, Received Pending 04/16/19 Blood Culture, Received Pending RAD Interpretation STUDY: CT abdomen and pelvis shows mild pericholecystic fluid or wall edema along the liver, which is new from the previous study. No gallstones. Borderline hepatomegaly. Small fatty nodule in the right adrenal measuring 14 x 18 x 19 mm which has increased since the last study. Abdominal ultrasound limited shows gallbladder wall thickening measuring 4-5 mm with internal sludge and no stones. Common bile duct measures 5 mm pancreas is normal. Right kidney is normal. Assessment/Plan 33-year-old female arrives to [facility] ED ambulating with complaints of sharp, stabbing epigastric, periumbilical abdominal pain that radiates to the right upper quadrant that worsened over the last few days that is followed by nausea and vomiting. She reports that she has been smoking methamphetamine with her last time smoking 6:00 this morning and she currently smokes 3-4 packs of cigarettes daily with alcohol frequently. Cholestasis-acute Plan NPO, if surgery is not recommended by general surgery and patient will be on a bland diet and possibly nutrition consulting Pain management as needed: Acetaminophen 650 mg by mouth every 4 hours as needed, 13 (pain scale 1-10)/fever; Ultram 50 mg 1 by mouth every 6 hours as needed for pain 4-10; Dilaudid 0.5 mg IV push slow Q3 hours when necessary breakthrough pain General surgery consult/manage (patient wants gallbladder removed. Instructed patient to speak provider in the morning, to let her wishes be known) Initiate Bowel regimen IV Fluids Normal Saline 125 cc/hr Hepatitis secondary to Polysubstance abuse/IV drug abuseacute Labs: If DILI (Drug Induced Liver Injury) ordered CMP; Alpha-1 Antitrypsin deficiency -pending; Hepatitis-A, B, Cpossibly viral hepatitis CMV, herpes s implex virus,. To rule out Auto-Immune Hepatitis ordered: Antinuclear antibodies, anti-smooth muscle antibodies, anti-liver/kidney microsomal antibodies type I, IgG, highly unlikely to be Huan's disease Huan's disease , hiatal test patient for her biochemical serum ceruloplasmin surgical services tech referral: Patient would benefit rehabilitation program if she is ready for detox or methadone clinic outpatient once medically stable Nicotine abusechronic. Discussed smoking cessation with patient [id number] 5 minutes. Discussed the pros and cons of nicotine, educated patient on the effects of nicotine on heart causing heart disease, increased blood pressure, increased risk for heart attack and stroke, more so when women who are obese and with positive family history of heart disease and high cholesterol. Increased risk of lung disease such as lung cancer, COPD and/or asthma each cigarette smoke. For the amount of time in years. No patient currently smokes three fourths pack cigarettes daily. In-house smoking affects pain inhibits pain medication requirement, more pain medication in order for it to be effective at 16 attested receptor sites. Patient agrees to use nicotine patch while inpatient. Currently, is not ready to stop smoking at this time. Nausea, vomitingacute Zofran 4 mg IV every 6 hours as needed for nausea and vomiting, Mylanta by mouth as needed. Essential Hypertensionchronic. Monitor blood pressure, systolic blood pressure goal 120 to 130. Monitor-daily weight, UA Asthmachronic Duo neb nebulized treatment every 66 hours as needed for shortness of breath, coughing and wheezing. Loratadine, start 10 mg 1 by mouth daily Prognosis: Good DVT prophylaxis: Heparin 5000 IUs subcutaneous 3 times a day and SCDs/TEDs stockings alternating Discharge: Pending Problems (1) Cholestasis Status: Acute Response to Treatment: Worse, Uncontrolled Discussed With: Patient Problem Specific Plan: Consult Specialist, Monitor Clinically, Repeat Labs, Repeat Tests Plan / VTE VTE Prophylaxis Ordered?: Yes VTE Exclusion Mechanical Proph: Jason Lower Ex DVT VTE Exclusion Pharmacological: N/A:VTE Prophy Ordered Plan IVF: Initiate Diet: Make NPO, Advance Activity: Encourage Ambulation Pt and Family Services: Other PFS (Rehab inpatient detox and or Methadone clin ic) Diagnostics: Check Labs, Repeat Labs in AM, Ultrasound ABEBA RASHID Apr 17, 2019 00:00
[2019-04-17] MEDS ORDERED: IPRATROPIUM 0.5MG/ALBUTEROL 2.5MG INH SOL UD 3ML (DUONEB)(J7620) NEB PRN (03:15)
[2019-04-17] MEDS: cloNIDine 0.1 MG TAB PO PRN (04:59)
[2019-04-17] MEDS: HEPARIN SOD (PORCINE) 5000 UNITS/ML VIAL SC SCH ×3 (06:24→22:37)
[2019-04-17 06:39] LABS: HEMATOCRIT 39.8 % (36.0-47.0); HEMOGLOBIN 13.4 g/dl (12.0-15.5); MEAN CORPUSCULAR HEMOGLOBIN 30.7 pg (27.0-33.0); MEAN CORPUSCULAR HGB CONC 33.7 g/dl (32.0-36.5); MEAN CORPUSCULAR VOLUME 91.3 fl (80.0-96.0); PLATELET COUNT, AUTOMATED 141 10^3/uL (150-450); RED BLOOD COUNT 4.36 10^6/uL (4.00-5.40); WHITE BLOOD COUNT 3.2 10^3/uL (4.0-10.0)
[2019-04-17] MEDS ORDERED: SUMAtriptan SUCCINATE 25 MG TAB PO ONE (07:00)
[2019-04-17 07:17] LABS: ALBUMIN 2.6 GM/DL (3.2-5.2); ALT/SGPT 2690 U/L (12-78); BILIRUBIN,TOTAL 3.3 MG/DL (0.2-1.0); BLOOD UREA NITROGEN 7 MG/DL (7-18); CALCIUM LEVEL 7.5 MG/DL (8.5-10.1); CARBON DIOXIDE LEVEL 27 MEQ/L (21-32); CHLORIDE LEVEL 106 MEQ/L (98-107); CREATININE FOR GFR 0.66 MG/DL (0.55-1.30); GLOMERULAR FILTRATION RATE > 60.0 (>60); GLUCOSE, FASTING 112 MG/DL (70-100); LDH LACTATE DEHYDROGENASE 882 U/L (84-246); POTASSIUM SERUM 3.1 MEQ/L (3.5-5.1); SODIUM LEVEL 139 MEQ/L (136-145); TOTAL PROTEIN 5.5 GM/DL (6.4-8.2)
[2019-04-17] MEDS: ONDANSETRON 4MG/2ML VIAL (J2405) IV PRN (07:27)
[2019-04-17] MEDS ORDERED: KETOROLAC 30 MG/ML VIAL (J1885) IV ONE (08:00)
[2019-04-17] MEDS ORDERED: diphenhydrAMINE INJ 50MG/ML VIAL (J1200) IV ONE (08:00)
[2019-04-17] MEDS ORDERED: MORPHINE 4 MG/ML 1ML VIAL/SYRINGE (J2270) IV ONE (08:00)
[2019-04-17] MEDS ORDERED: METOCLOPRAMIDE INJ 10MG/2ML VIAL (J2765) IV ONE (08:00)
[2019-04-17] MEDS: KCL 40MEQ in NS 1000ML 1,000 ML IV SCH ×2 (08:36→15:02)
[2019-04-17] MEDS: DOCUSATE SODIUM 100 MG CAP PO SCH ×2 (10:35→19:59)
[2019-04-17] MEDS: NICOTINE 21MG/24HR 1 EA TRANSDERMAL TD SCH (10:35)
[2019-04-17] MEDS: FOLIC ACID 1 MG TAB PO SCH (10:35)
[2019-04-17] MEDS: PANTOPRAZOLE 40MG INJ (PROTONIX) (C9113) IV SCH (10:35)
[2019-04-17] MEDS: MULTIVITAMINS/MINERALS THERAP 1 TAB PO SCH (10:36)
[2019-04-17] MEDS: THIAMINE 100 MG TAB PO SCH (10:36)
--- NOTE | 2019-04-17 11:01 | CR.PDOC ---
General Surgery Consultation Date of Consultation 04/17/19 History and Physical It was yesterday here in CONSULT REPORT FOR: hospitalist service REASON FOR CONSULTATION: abdominal pain, ?gallbladder issues HISTORY OF PRESENT ILLNESS: Patient is a 33-year-old female who was seen in the emergency room last night and currently admitted under the hospitalist service. She tells a story that she was shooting up with methamphetamine IV Wednesday evening into Wednesday morning. She started feeling nauseous and had multiple vomiting starting about 3 AM in the morning about 5:30 AM started having upper abdominal discomfort stretches of the band at the epigastric area radiating both right and left upper quadrant area which initially comes and goes then later on becomes more constant. Her forearm that was brownish, cloudy colored in appearance which got her concerned that she might have some bleeding and thus she went to the emergency room roughly about 6 PM. Emergency room she was evaluated and subsequently admitted. I have briefly met her back in 2018 for intermittent episodes of epigastric and right upper quadrant discomfort that seems to be post prandial. At that time on all her multiple visits she had normal ultrasound of the gallbladder as well as CT scan of the abdomen and pelvis. They did an upper endoscopy on her which was normal. She was supposed to have a HIDA scan performed with she did not follow through with this and she was eventually lost to follow-up. She was also considering bariatric surgery and according to her was supposed to be scheduled in September 2018 but she relapsed with her IV drug use and she also never followed up with that. Currently patient reports she has had lost some weight due to the fact that she has not been eating while she shoots up with methamphetamine. She denies any sick contacts, eating well or unusual foods. She has not been eating over the weekend due to the fact that she has been using methamphetamine at that time. PAST MEDICAL HISTORY: 1. Currently IV drug use with methamphetamine. She denies sharing needles 2. Anxiety and depression. 3. PTSD PAST SURGICAL HISTORY: INCLUDES: 1. Tonsillectomy and adenoidectomy 2. Sinus surgery 3. LEEP procedure ALLERGIES: Please see below. FAMILY HISTORY: Noncontributory. HOME MEDICATIONS: Please see below. REVIEW OF SYSTEMS: GENERAL: Currently IV drug using, prefer drunk is methamphetamine which she shoots up. She denies sharing needles. Reports not eating while she is using. Reports weight loss from this. Denies fevers or chills. HEENT: Denies blurred vision and double vision. Denies ear symptoms. Denies hoarseness. NECK: Denies any neck pain CARDIOVASCULAR: Denies chest pain and palpitations. MUSCULOSKELETAL: Denies arthralgias, back pain and thrombophlebitis. SKIN: Denies rash. NEUROLOGIC: Denies headache, stroke and transient ischemic attack. PSYCHIATRIC: Reports an sac and depression, PTSD. ENDOCRINE: Denies thyroid disease. HEMATOLOGY/ONCOLOGY: Denies bleeding or clotting disorder. HEART: Denies any chest pains, palpitations, paroxysmal dyspnea, orthopnea. PULMONARY: Denies chronic cough, dyspnea and wheezing. GASTROINTESTINAL: See HPI. GENITOURINARY: Denies dysuria, frequency, hematuria and nocturia. ENDOCRINE: Denies polydipsia, polyphagia, polyuria, heat or cold intolerance. INFECTIOUS: Denies any recent upper respiratory tract infection, UTI, need for use of antibiotics. NUTRITION: Reports fair appetite. PHYSICAL EXAMINATION: VITALS SIGNS: Please see below. GENERAL APPEARANCE: Patient seen, laying comfortably in bed, was asleep when he entered. Appears relatively comfortable. She reports feeling much better compared to when she presented at the emergency room last night. Pain level ab out 4 right now. She still reports feeling nauseous. SKIN: Warm and dry. HEENT: dirty sclerae but anicteric.. LUNGS: Clear to auscultation bilaterally. No wheezing appreciated. HEART: No chest wall abnormalities. Regular rate and rhythm with no murmurs appreciated. ABDOMEN: Abdomen is obese, soft, nondistended. Mild tenderness mainly centered at the epigastric area with some mild tenderness over the left upper quadrant area more than right upper quadrant area. No rebound or guarding. There is ge nerally benign and nondistended ANCILLARIES: . LABORATORY DATA: Please see below. IMAGING STUDIES: CT scan abdomen and pelvis 1. Mild pericholecystic fluid or wall edema along liver interface, new since 06/04/2017. No gallstones are seen. 2. Borderline splenomegaly. 3. Small fatty nodule the right adrenal measuring 14 x 18 x 19 mm which is increased since the prior study. 4. Otherwise negative CT abdomen/pelvis. Abd US 1. Gallbladder wall thickening measuring 4-5 mm with internal sludge and no stones. 2. Otherwise negative right upper quadrant sonogram. IMPRESSION AND PLAN: hepatitis Patient's pain from hepatitis and not from the gallbladder. She may or may not be having biliary colic attacks from her history. She has had multiple ER visits, prior imaging did not show any stones in the gb. Interesting that the most recent study shows gallbladder wall thickening. This does not seem to be acute in nature. She also has some evidence of sludge now whereas it was normal on the previous imaging studies.. Most recent US shows sludge. This can be addressed electively once her hepatitis resolves. She can follow up in the clinic. Review of the most recent serology shows that she is positive for hepatitis A. I explained to her that this is usually obtained via fecal oral route transfer of infection. She does have high risk behaviors including IV drug use though she reports that she does not share needles. Apparently she had a recent hepatitis screen roughly 2 weeks ago while she was in the [facility] rehab and her hepatitis screen was negative at that time. After she gets better she can follow up in clinic in a month's time. Vital Signs Vital Signs Date Time Temp Pulse Resp B/P (MAP) Pulse Ox O2 Delivery O2 Flow Rate FiO2 04/17/19 10:38 18 04/17/19 10:09 61 133/81 (98) 100 Room Air 04/17/19 07:31 97.2 Laboratory Data Labs 24H Laboratory Tests 2 04/16/19 17:56: Nucleated Red Blood Cells % (auto) 0.0, Neutrophils 63, Band Neutrophils 5, Lymphocytes (Manual) 20, Monocytes (Manual) 5, Atypical Lymphocytes 7H, Platelet Estimate NORMAL, Red Blood Cell Morphology NORMAL, Anion Gap 10, Glomerular Filtration Rate > 60.0, Calcium Level 8.5, Aspartate Amino Transf (AST/SGOT) 3062H, Alanine Aminotransferase (ALT/SGPT) 3411H, Alkaline Phosphatase 153H, Total Bilirubin 3.9H, Direct Bilirubin 3.3H, Total Protein 6.3L, Albumin 3.4, Albumin/Globulin Ratio 1.17, Amylase Level 14L, Lipase 88, Human Chorionic Gonadotropin, Qual NEGATIVE 04/16/19 18:10: Urine Color SYLVIA, Urine Appearance CLOUDYH, Urine pH 5.0, Urine Specific [place] 1.038, Urine Protein 2+H, Urine Glucose (UA) NEGATIVE, Urine Ketones TRACEH, Urine Blood 2+H, Urine Nitrite NEGATIVE, Urine Bilirubin 2+H, Urine Urobilinogen 4.0H, Urine Leukocyte Esterase NEGATIVE, Urine WBC (Auto) 2, Urine RBC (Auto) 32H, Urine Hyaline Casts (Auto) 5, Urine Bacteria (Auto) NEGATIVE, Urine Squamous Epithelial Cells 13, Urine Amorphous Sediment SMALLH, Urine Mucus (Auto) SMALL, Urine Sperm (Auto) , Lactic Acid Level 1.3, Urine Amphetamines Screen POSITIVEH, Urine Benzodiazepines Screen POSITIVEH, Urine Opiates Screen NEGATIVE, Urine Methadone Screen NEGATIVE, Urine Barbiturates Screen NEGATIVE, Urine Phencyclidine Screen NEGATIVE, Urine Cocaine Metabolite Screen NEGATIVE, Urine Cannabinoids Screen POSITIVEH 04/16/19 19:47: Prothrombin Time 19.4H, Prothromb Time International Ratio 1.67, Ammonia < 10 04/17/19 01:14: Acetaminophen Level 8.4L, HIV Antigen/Antibody Combo Qual NEGATIVE 04/17/19 06:21: Nucleated Red Blood Cells % (auto) 0.0, Anion Gap 6L, Glomerular Filtration Rate > 60.0, Lactic Acid Level 1.3, Blood Urea Nitrogen 7, Creatinine 0.66, Sodium Level 139, Potassium Level 3.1L, Chloride Level 106, Carbon Dioxide Level 27, Calcium Level 7.5L, Aspartate Amino Transf (AST/SGOT) 1910H, Alanine Aminotransferase (ALT/SGPT) 2690H, Lactate Dehydrogenase 882H, Alkaline Phosphatase 125H, Total Bilirubin 3.3H, Total Protein 5.5L, Albumin 2.6#L, Gamma Glutamyl Transferase 252H, Albumin/Globulin Ratio 0.90L CBC/BMP Laboratory Tests 04/16/19 17:56 Red Blood Count 4.80, Mean Corpuscular Volume 89.8, Mean Corpuscular Hemoglobin 30.2, Mean Corpuscular Hemoglobin Concent 33.6, Red Cell Distribution Width 12.9 04/17/19 06:21 Red Blood Count 4.36, Mean Corpuscular Volume 91.3, Mean Corpuscular Hemoglobin 30.7, Mean Corpuscular Hemoglobin Concent 33.7, Red Cell Distribution Width 12.9, Calcium Level 7.5 L, Aspartate Amino Transf (AST/SGOT) 1910 H, Alanine Aminotransferase (ALT/SGPT) 2690 H, Lactate Dehydrogenase 882 H, Alkaline Phosphatase 125 H, Total Bilirubin 3.3 H, Total Protein 5.5 L, Albumin 2.6 #L Microbiology Microbiology 04/16/19 Blood Culture, Received Pending 04/16/19 Blood Culture, Received Pending Home Medications No Active Prescriptions or Reported Meds Allergies Coded Allergies: ketorolac (Verified Allergy, Mild, numbness tingling, restless legs, 12/13/18) MARK FOURNIER MD Apr 17, 2019 11:01
[2019-04-17 11:18] LABS: HEPATITIS A ANTIBODY IGM POSITIVE (NEGATIVE); HEPATITIS B CORE ANTIBODY IGM NEGATIVE (NEGATIVE); HEPATITIS B SURFACE ANTIGEN NEGATIVE (NEGATIVE); HEPATITIS C VIRUS ABY INDEX 0.2 INDEX (<0.8)
[2019-04-17 14:40] VITALS: BP 120/72
[2019-04-17] MEDS: MORPHINE 4 MG/ML 1ML VIAL/SYRINGE (J2270) IV PRN ×2 (15:39→19:59)
--- NOTE | 2019-04-17 19:41 | IPNPDOC ---
Subjective Date Seen The patient was seen on 04/17/19. Subjective Chief Complaint/HPI Severe headache this morning. No fever or chills, nochest pain or sob, Has some upper abdominal pain Objective Physical Examination General Exam: Positive: Alert, Cooperative, No Acute Distress Eye Exam: Positive: PERRLA, Conjunctiva & lids normal, Sclera icteric ENT Exam: Positive: Atraumatic, Mucous membr. moist/pink, Pharynx Normal, Tongue Midline Neck Exam: Positive: Supple, +2 carotid pulse wo bruit Chest Exam: Positive: Clear to auscultation, Diminished (right apical lobe & bilateral base lobe) Heart Exam: Positive: Rate Normal, Normal S1, Normal S2 Abdomen Exam: Positive: Normal bowel sounds, Soft Extremity Exam: Positive: Normal pulses; Negative: Clubbing, Cyanosis, Edema Skin Exam: Positive: Nl turgor and temperature, Other skin issue (needle track jones bilateral forearms with brown skin discoloration surrounding entry into the skin, tattoos lower legs) Neuro Exam: Positive: Normal Gait, Normal Speech, Cranial Nerves 3-12 NL Psych Exam: Positive: Anxiety, Oriented x 3 Assessment /Plan Assessment 33-year-old female with PMH od PTSH, IV substace abuse methapmphetamine, marijuana, asthma, arrives to [facility] ED ambulating with complaints of sharp, stabbing epigastric, periumbilical abdominal pain that radiates to the right upper quadrant that worsened over the last few days that is followed by nausea and vomiting. She was admitted for acute hepatitis. Acute Hepatitis A supportive management spoke with Dr Hamm avoid Tylenol and benzodiazepine. zofran prn, pantoprazole, pain control with tramadol, toradol and morphine. Autoimmune hepatits work up was ordered on admission please follow up HepB and HepC in progress. Polysubatance abuse and alcohol abuse IV methamphetamine use. continue thiamine and folate, clonidine for withdrawal watch for withdrawal. hepc in progress H/o Hypertension now bp controlled without meds. Asthmachronic on duonebs, loratadine GB sludge and thickened GB wall has history suggestive of biliary colic follow up with [facility] in 1 month after acute hepatitis is resolved. Plan/VTE VTE Prophylaxis Ordered?: Yes VTE Exclusion Pharmacological: N/A:VTE Prophy Ordered Plan IVF: Initiate Diet: Make NPO, Advance Activity: Encourage Ambulation Pt and Family Services: Other PFS (Rehab inpatient detox and or Methadone clinic) Diagnostics: Check Labs, Repeat Labs in AM, Ultrasound VS, I&O, 24H, Fishbone Vital Signs/I&O Vital Signs Date Time Temp Pulse Resp B/P (MAP) Pulse Ox O2 Delivery O2 Flow Rate FiO2 04/17/19 15:50 18 04/17/19 14:40 96.7 68 120/72 (88) 100 04/17/19 14:23 Room Air Laboratory Data 24H LABS Laboratory Tests 2 04/16/19 19:47: Prothrombin Time 19.4H, Prothromb Time International Ratio 1.67, Ammonia < 10, Hepatitis A IgM Antibody POSITIVEA, Hepatitis B Surface Antigen NEGATIVE, Hepatitis B Core IgM Antibody NEGATIVE, Hepatitis C Antibody Index 0.2 04/17/19 01:14: Acetaminophen Level 8.4L, HIV Antigen/Antibody Combo Qual NEGATIVE 04/17/19 06:21: Nucleated Red Blood Cells % (auto) 0.0, Anion Gap 6L, Glomerular Filtration Rate > 60.0, Lactic Acid Level 1.3, Blood Urea Nitrogen 7, Creatinine 0.66, Sodium Level 139, Potassium Level 3.1L, Chloride Level 106, Carbon Dioxide Level 27, Calcium Level 7.5L, Aspartate Amino Transf (AST/SGOT) 1910H, Alanine Aminotransferase (ALT/SGPT) 2690H, Lactate Dehydrogenase 882H, Alkaline Phosphatase 125H, Total Bilirubin 3.3H, Total Protein 5.5L, Albumin 2.6#L, Gamma Glutamyl Transferase 252H, Albumin/Globulin Ratio 0.90L CBC/BMP Laboratory Tests 04/17/19 06:21 Red Blood Count 4.36, Mean Corpuscular Volume 91.3, Mean Corpuscular Hemoglobin 30.7, Mean Corpuscular Hemoglobin Concent 33.7, Red Cell Distribution Width 12.9, Calcium Level 7.5 L, Aspartate Amino Transf (AST/SGOT) 1910 H, Alanine Aminotransferase (ALT/SGPT) 2690 H, Lactate Dehydrogenase 882 H, Alkaline Phosphatase 125 H, Total Bilirubin 3.3 H, Total Protein 5.5 L, Albumin 2.6 #L Microbiology Microbiology 04/16/19 Blood Culture - Preliminary, Resulted No growth after 24 hours . All specim... 04/16/19 Blood Culture - Preliminary, Resulted No growth after 24 hours . All specim... MIKE HAWKINS MD Apr 17, 2019 19:41
[2019-04-17 22:00] VITALS: BP 106/64
[2019-04-18] MEDS: MORPHINE 4 MG/ML 1ML VIAL/SYRINGE (J2270) IV PRN ×6 (00:20→23:20)
[2019-04-18] MEDS: ONDANSETRON 4MG/2ML VIAL (J2405) IV PRN ×3 (00:20→18:30)
[2019-04-18] MEDS: KCL 40MEQ in NS 1000ML 1,000 ML IV SCH ×2 (03:12→15:52)
[2019-04-18 06:00] VITALS: BP 108/68
[2019-04-18] MEDS: HEPARIN SOD (PORCINE) 5000 UNITS/ML VIAL SC SCH ×3 (06:03→21:23)
[2019-04-18 06:19] LABS: HEMATOCRIT 38.3 % (36.0-47.0); HEMOGLOBIN 12.6 g/dl (12.0-15.5); MEAN CORPUSCULAR HEMOGLOBIN 30.4 pg (27.0-33.0); MEAN CORPUSCULAR HGB CONC 32.9 g/dl (32.0-36.5); MEAN CORPUSCULAR VOLUME 92.5 fl (80.0-96.0); PLATELET COUNT, AUTOMATED 126 10^3/uL (150-450); RED BLOOD COUNT 4.14 10^6/uL (4.00-5.40); WHITE BLOOD COUNT 3.3 10^3/uL (4.0-10.0)
[2019-04-18 06:49] LABS: ALBUMIN 2.3 GM/DL (3.2-5.2); ALT/SGPT 1967 U/L (12-78); BILIRUBIN,TOTAL 2.9 MG/DL (0.2-1.0); BLOOD UREA NITROGEN 3 MG/DL (7-18); CALCIUM LEVEL 7.4 MG/DL (8.5-10.1); CARBON DIOXIDE LEVEL 25 MEQ/L (21-32); CHLORIDE LEVEL 110 MEQ/L (98-107); CREATININE FOR GFR 0.58 MG/DL (0.55-1.30); GLOMERULAR FILTRATION RATE > 60.0 (>60); GLUCOSE, FASTING 82 MG/DL (70-100); POTASSIUM SERUM 4.1 MEQ/L (3.5-5.1); SODIUM LEVEL 139 MEQ/L (136-145)
[2019-04-18 06:54] LABS: ATYPICAL LYMPH 1 % (0-5); BASOPHILS 1 % (0-1); EOSINOPHILS 2 % (0-3); LYMPHOCYTES 66 % (16-44); MONOCYTES 3 % (0-5); NEUTROPHILS 27 % (28-66)
[2019-04-18 06:55] LABS: PLATELET ESTIMATE NORMAL (NORMAL)
[2019-04-18 08:06] LABS: CERULOPLASMIN 18.7 mg/dL (19.0-39.0)
[2019-04-18] MEDS: DOCUSATE SODIUM 100 MG CAP PO SCH ×2 (08:23→21:23)
[2019-04-18] MEDS: PANTOPRAZOLE 40MG INJ (PROTONIX) (C9113) IV SCH (08:23)
[2019-04-18] MEDS: FOLIC ACID 1 MG TAB PO SCH (08:23)
[2019-04-18] MEDS: MULTIVITAMINS/MINERALS THERAP 1 TAB PO SCH (08:23)
[2019-04-18] MEDS: THIAMINE 100 MG TAB PO SCH (08:23)
[2019-04-18] MEDS: NICOTINE 21MG/24HR 1 EA TRANSDERMAL TD SCH (08:25)
--- NOTE | 2019-04-18 12:42 | IPNPDOC ---
Subjective Date Seen The patient was seen on 04/18/19. Subjective Chief Complaint/HPI Patient feeling comfortable offers no new complaints General: Denies: ROS Unobtainable, Chills, Night Sweats, Fatigue, Malaise, Normal Appetite, Other Symptoms Constitutional: Denies: Chills, Fever, Malaise, Night Sweats, Weakness, Fatigue, Weight Loss, Lethargy, Other Skin: Denies: Rash, Lesions, Jaundice, Bruising, Itching, Dry, Breakdown, Nail Changes, Other Pulmonary: Denies: Dyspnea, Cough, Pleuritic Chest Pain, Other Symptoms Cardiovascular: Denies: Chest Pain, Palpitations, Orthopnea, Paroxysmal Noc. Dyspnea, Edema, Lt Headedness, Other Symptoms Gastrointestinal: Denies: Nausea, Vomiting, Abdominal Pain, Diarrhea, Constipation, Melena, Hematochezia, Other Symptoms Musculoskeletal: Denies: Neck Pain, Back Pain, Shoulder Pain, Arm Pain, Hand Pain, Leg Pain, Foot Pain, Joint Pain, Muscle Pain, Spasms, Other Symptoms Neurological: Denies: Weakness, Numbness, Incoordination, Change in speech, Confusion, Seizures, Other Symptoms Objective Physical Examination Eye Exam: Positive: PERRLA, Conjunctiva & lids normal, Sclera icteric ENT Exam: Positive: Atraumatic, Mucous membr. moist/pink, Pharynx Normal, Tongue Midline Neck Exam: Positive: Supple, +2 carotid pulse wo bruit Chest Exam: Positive: Clear to auscultation, Diminished (right apical lobe & bilateral base lobe) Heart Exam: Positive: Rate Normal, Normal S1, Normal S2 Abdomen Exam: Positive: Normal bowel sounds, Soft Extremity Exam: Positive: Normal pulses Skin Exam: Positive: Nl turgor and temperature, Other skin issue (needle track jones bilateral forearms with brown skin discoloration surrounding entry into the skin, tattoos lower legs) Neuro Exam: Positive: Normal Gait, Normal Speech, Cranial Nerves 3-12 NL Psych Exam: Positive: Anxiety, Oriented x 3 Assessment /Plan Problems (1) Hepatitis A Status: Acute Problem Text: Nguyen is slowly improving Offers no new complaints Repeat LFTs in a.m. Hospital discharge in a.m. if asymptomatic (2) Drug abuse and dependence Status: Chronic Problem Text: . Drug abuse. Counseling done at bedside All risks were explained to patient Plan/VTE VTE Prophylaxis Ordered?: Yes VTE Exclusion Pharmacological: N/A:VTE Prophy Ordered Plan IVF: Initiate Diet: Make NPO, Advance Activity: Encourage Ambulation Pt and Family Services: Other PFS (Rehab inpatient detox and or Methadone clinic) Diagnostics: Check Labs, Repeat Labs in AM, Ultrasound VS, I&O, 24H, Fishbone Vital Signs/I&O Vital Signs Date Time Temp Pulse Resp B/P (MAP) Pulse Ox O2 Delivery O2 Flow Rate FiO2 04/18/19 10:20 18 04/18/19 06:00 98.1 74 108/68 (81) 96 04/17/19 14:23 Room Air I&O- Last 24 Hours up to 6 AM 04/18/19 06:00 Intake Total 2840 ml Output Total 1000 ml Balance 1840 ml Laboratory Data 24H LABS Laboratory Tests 2 04/18/19 06:05: Nucleated Red Blood Cells % (auto) 0.0, Neutrophils 27L, Lymphocytes (Manual) 66H, Monocytes (Manual) 3, Eosinophils (Manual) 2, Basophils (Manual) 1, Atypical Lymphocytes 1, Platelet Estimate NORMAL, Red Blood Cell Morphology NORMAL, Anion Gap 4L, Glomerular Filtration Rate > 60.0, Blood Urea Nitrogen 3#L, Creatinine 0.58, Sodium Level 139, Potassium Level 4.1#, Chloride Level 110H, Carbon Dioxide Level 25, Calcium Level 7.4L, Aspartate Amino Transf (AST/SGOT) 1150H, Alanine Aminotransferase (ALT/SGPT) 1967H, Alkaline Phosphatase 133H, Total Bilirubin 2.9H, Total Protein 5.0L, Albumin 2.3L, Albumin/Globulin Ratio 0.85L CBC/BMP Laboratory Tests 04/18/19 06:05 Red Blood Count 4.14, Mean Corpuscular Volume 92.5, Mean Corpuscular Hemoglobin 30.4, Mean Corpuscular Hemoglobin Concent 32.9, Red Cell Distribution Width 13.2, Calcium Level 7.4 L, Aspartate Amino Transf (AST/SGOT) 1150 H, Alanine Aminotransferase (ALT/SGPT) 1967 H, Alkaline Phosphatase 133 H, Total Bilirubin 2.9 H, Total Protein 5.0 L, Albumin 2.3 L Microbiology Microbiology 04/16/19 Blood Culture - Preliminary, Resulted No growth after 24 hours . All specim... 04/16/19 Blood Culture - Preliminary, Resulted No growth after 24 hours . All specim... SHAUNA,JANAK MD Apr 18, 2019 12:42
[2019-04-18 14:00] VITALS: BP 106/60
[2019-04-18] MEDS ORDERED: diphenhydrAMINE 25 MG CAP PO ONE (19:15)
[2019-04-18 22:00] VITALS: BP 119/78
[2019-04-19 00:06] LABS: ANTI-MITOCHONDRIAL ANTIBODY <20.0 Units (0.0-20.0); ANTI-SMOOTH MUSCLE ANTIBODY 10 Units (0-19); ANTINUCLEAR ANTIBODIES DIRECT Negative (Negative); LIVER-KIDNEY MICROSOMAL ABY <20.1 Units (0.0-20.0)
[2019-04-19] MEDS: ONDANSETRON 4MG/2ML VIAL (J2405) IV PRN ×2 (04:05→12:14)
[2019-04-19] MEDS: MORPHINE 4 MG/ML 1ML VIAL/SYRINGE (J2270) IV PRN ×5 (04:05→22:28)
[2019-04-19] MEDS: KCL 40MEQ in NS 1000ML 1,000 ML IV SCH ×2 (05:27→17:24)
[2019-04-19] MEDS: HEPARIN SOD (PORCINE) 5000 UNITS/ML VIAL SC SCH ×3 (05:27→22:28)
[2019-04-19 06:00] VITALS: BP 119/81
[2019-04-19 08:09] LABS: BASO % 0.5 % (0.0-1.0); EOS # 0.1 10^3/uL (0.0-0.5); EOS % 2.5 % (0.0-3.0); HEMATOCRIT 38.2 % (36.0-47.0); HEMOGLOBIN 12.5 g/dl (12.0-15.5); LYMPH # 1.9 10^3/uL (1.5-5.0); LYMPH % 51.5 % (24.0-44.0); MEAN CORPUSCULAR HEMOGLOBIN 29.6 pg (27.0-33.0); MEAN CORPUSCULAR HGB CONC 32.7 g/dl (32.0-36.5); MEAN CORPUSCULAR VOLUME 90.5 fl (80.0-96.0); MONO # 0.2 10^3/uL (0.0-0.8); MONO % 5.2 % (0.0-5.0); NEUTROPHILS # 1.5 10^3/uL (1.5-8.5); PLATELET COUNT, AUTOMATED 168 10^3/uL (150-450); RED BLOOD COUNT 4.22 10^6/uL (4.00-5.40); WHITE BLOOD COUNT 3.7 10^3/uL (4.0-10.0)
[2019-04-19] MEDS: DOCUSATE SODIUM 100 MG CAP PO SCH ×2 (08:10→20:59)
[2019-04-19] MEDS: FOLIC ACID 1 MG TAB PO SCH (08:10)
[2019-04-19] MEDS: PANTOPRAZOLE 40MG INJ (PROTONIX) (C9113) IV SCH (08:10)
[2019-04-19] MEDS: THIAMINE 100 MG TAB PO SCH (08:10)
[2019-04-19] MEDS: MULTIVITAMINS/MINERALS THERAP 1 TAB PO SCH (08:10)
[2019-04-19] MEDS: NICOTINE 21MG/24HR 1 EA TRANSDERMAL TD SCH (08:20)
[2019-04-19 08:34] LABS: ALBUMIN 2.3 GM/DL (3.2-5.2); ALT/SGPT 1538 U/L (12-78); BILIRUBIN,DIRECT 3.2 MG/DL (0.0-0.2); BLOOD UREA NITROGEN 1 MG/DL (7-18); CARBON DIOXIDE LEVEL 27 MEQ/L (21-32); CHLORIDE LEVEL 107 MEQ/L (98-107); CREATININE FOR GFR 0.48 MG/DL (0.55-1.30); GLOMERULAR FILTRATION RATE > 60.0 (>60); GLUCOSE, FASTING 67 MG/DL (70-100); POTASSIUM SERUM 4.6 MEQ/L (3.5-5.1); SODIUM LEVEL 139 MEQ/L (136-145); TOTAL PROTEIN 5.4 GM/DL (6.4-8.2)
--- NOTE | 2019-04-19 11:47 | IPNPDOC ---
Subjective Date Seen The patient was seen on 04/19/19. Subjective Chief Complaint/HPI complaining of abdominal pain General: Reports: ROS Unobtainable, Chills, Night Sweats, Fatigue, Malaise, Normal Appetite, Other Symptoms Constitutional: Denies: Chills, Fever, Malaise, Night Sweats, Weakness, Fatigue, Weight Loss, Lethargy, Other Skin: Denies: Rash, Lesions, Jaundice, Bruising, Itching, Dry, Breakdown, Nail Changes, Other Pulmonary: Denies: Dyspnea, Cough, Pleuritic Chest Pain, Other Symptoms Cardiovascular: Denies: Chest Pain, Palpitations, Orthopnea, Paroxysmal Noc. Dyspnea, Edema, Lt Headedness, Other Symptoms Gastrointestinal: Denies: Nausea, Vomiting, Abdominal Pain, Diarrhea, Consti pation, Melena, Hematochezia, Other Symptoms Musculoskeletal: Denies: Neck Pain, Back Pain, Shoulder Pain, Arm Pain, Hand Pain, Leg Pain, Foot Pain, Joint Pain, Muscle Pain, Spasms, Other Symptoms Neurological: Denies: Weakness, Numbness, Incoordination, Change in speech, Confusion, Seizures, Other Symptoms Objective Physical Examination Eye Exam: Positive: PERRLA, Conjunctiva & lids normal, Sclera icteric ENT Exam: Positive: Atraumatic, Mucous membr. moist/pink, Pharynx Normal, Tong ue Midline Neck Exam: Positive: Supple, +2 carotid pulse wo bruit Chest Exam: Positive: Clear to auscultation, Normal air movement Heart Exam: Positive: Rate Normal, Normal S1, Normal S2 Abdomen Exam: Positive: Normal bowel sounds, Soft Extremity Exam: Positive: Normal pulses Skin Exam: Positive: Nl turgor and temperature, Other skin issue (needle track jones bilateral forearms with brown skin discoloration surrounding entry into the skin, tattoos lower legs) Assessment /Plan Problems (1) Hepatitis A Status: Acute Problem Text: Patient is progressively improving LFTs are trending downwards [id number]/[id number] Will continue 1 more day of observation If the LFTs continue to trend downwards, then she can be discharged home tomorrow (2) Drug abuse and dependence Status: Chronic Problem Text: . Drug abuse. Counseling done at bedside All risks were explained to patient Plan/VTE VTE Prophylaxis Ordered?: Yes VTE Exclusion Pharmacological: N/A:VTE Prophy Ordered Plan IVF: Initiate Diet: Make NPO, Advance Activity: Encourage Ambulation Pt and Family Services: Other PFS (Rehab inpatient detox and or Methadone clinic) Diagnostics: Check Labs, Repeat Labs in AM, Ultrasound VS, I&O, 24H, Fishbone Vital Signs/I&O Vital Signs Date Time Temp Pulse Resp B/P (MAP) Pulse Ox O2 Delivery O2 Flow Rate FiO2 04/19/19 08:20 18 04/19/19 06:00 97.7 79 119/81 (94) 93 04/17/19 14:23 Room Air I&O- Last 24 Hours up to 6 AM 04/19/19 06:00 Intake Total 4560 ml Output Total 3000 ml Balance 1560 ml Laboratory Data 24H LABS Laboratory Tests 2 04/19/19 06:33: Immature Granulocyte % (Auto) 0.3, White Blood Count 3.7L, Red Blood Count 4.22, Hemoglobin 12.5, Hematocrit 38.2, Mean Corpuscular Volume 90.5, Mean Corpuscular Hemoglobin 29.6, Mean Corpuscular Hemoglobin Concent 32.7, Red Cell Distribution Width 13.4, Platelet Count 168, Neutrophils (%) (Auto) 40.0, Lymphocytes (%) (Auto) 51.5H, Monocytes (%) (Auto) 5.2H, Eosinophils (%) (Auto) 2.5, Basophils (%) (Auto) 0.5, Neutrophils # (Auto) 1.5, Lymphocytes # (Auto) 1.9, Monocytes # (Auto) 0.2, Eosinophils # (Auto) 0.1, Basophils # (Auto) 0.0, Nucleated Red Blood Cells % (auto) 0.0, Anion Gap 5L, Glomerular Filtration Rate > 60.0, Blood Urea Nitrogen 1#L, Creatinine 0.48L, Sodium Level 139, Potassium Level 4.6, Chloride Level 107, Carbon Dioxide Level 27, Calcium Level 8.0L, Aspartate Amino Transf (AST/SGOT) 874H, Alanine Aminotransferase (ALT/SGPT) 1538H, Alkaline Phosphatase 321H, Total Bilirubin 4.0H, Direct Bilirubin 3.2H, Total Protein 5.4L, Albumin 2.3L, Albumin/Globulin Ratio 0.74L CBC/BMP Laboratory Tests 04/19/19 06:33 Red Blood Count 4.22, Mean Corpuscular Volume 90.5, Mean Corpuscular Hemoglobin 29.6, Mean Corpuscular Hemoglobin Concent 32.7, Red Cell Distribution Width 13.4, Neutrophils (%) (Auto) 40.0, Lymphocytes (%) (Auto) 51.5 H, Monocytes (%) (Auto) 5.2 H, Eosinophils (%) (Auto) 2.5, Basophils (%) (Auto) 0.5, Neutrophils # (Auto) 1.5, Lymphocytes # (Auto) 1.9, Monocytes # (Auto) 0.2, Eosinophils # (Auto) 0.1, Basophils # (Auto) 0.0, Calcium Level 8.0 L, Aspartate Amino Transf (AST/SGOT) 874 H, Alanine Aminotransferase (ALT/SGPT) 1538 H, Alkaline Phosphatase 321 H, Total Bilirubin 4.0 H, Direct Bilirubin 3.2 H, Total Protein 5.4 L, Albumin 2.3 L Microbiology Microbiology 04/16/19 Blood Culture - Preliminary, Resulted No Growth after 48 hours. All Specime... 04/16/19 Blood Culture - Preliminary, Resulted No Growth after 48 hours. All Specime... JANAK VILLATORO MD Apr 19, 2019 11:47
[2019-04-19 14:00] VITALS: BP 120/70
[2019-04-19 20:53] VITALS: BP 120/70
[2019-04-19] MEDS: cloNIDine 0.1 MG TAB PO PRN (20:53)
[2019-04-19 22:00] VITALS: BP 147/81
[2019-04-20] MEDS: MORPHINE 4 MG/ML 1ML VIAL/SYRINGE (J2270) IV PRN ×2 (03:53→08:22)
[2019-04-20 06:00] VITALS: BP 111/66
[2019-04-20 06:08] LABS: HEMATOCRIT 37.6 % (36.0-47.0); HEMOGLOBIN 12.4 g/dl (12.0-15.5); MEAN CORPUSCULAR HEMOGLOBIN 29.7 pg (27.0-33.0); PLATELET COUNT, AUTOMATED 190 10^3/uL (150-450); RED BLOOD COUNT 4.18 10^6/uL (4.00-5.40)
[2019-04-20 06:40] LABS: ALBUMIN 2.3 GM/DL (3.2-5.2); ALT/SGPT 1159 U/L (12-78); BILIRUBIN,TOTAL 4.6 MG/DL (0.2-1.0); BLOOD UREA NITROGEN 2 MG/DL (7-18); CALCIUM LEVEL 8.2 MG/DL (8.5-10.1); CARBON DIOXIDE LEVEL 28 MEQ/L (21-32); CHLORIDE LEVEL 104 MEQ/L (98-107); CREATININE FOR GFR 0.61 MG/DL (0.55-1.30); GLOMERULAR FILTRATION RATE > 60.0 (>60); GLUCOSE, FASTING 85 MG/DL (70-100); POTASSIUM SERUM 4.2 MEQ/L (3.5-5.1); SODIUM LEVEL 138 MEQ/L (136-145); TOTAL PROTEIN 5.5 GM/DL (6.4-8.2)
[2019-04-20 06:47] LABS: ATYPICAL LYMPH 1 % (0-5); EOSINOPHILS 1 % (0-3); LYMPHOCYTES 35 % (16-44); MONOCYTES 5 % (0-5); NEUTROPHILS 57 % (28-66)
[2019-04-20 06:49] LABS: PLATELET ESTIMATE NORMAL (NORMAL)
[2019-04-20] MEDS: HEPARIN SOD (PORCINE) 5000 UNITS/ML VIAL SC SCH (06:51)
[2019-04-20] MEDS: KCL 40MEQ in NS 1000ML 1,000 ML IV SCH (06:51)
[2019-04-20] MEDS: PANTOPRAZOLE 40MG INJ (PROTONIX) (C9113) IV SCH (08:22)
[2019-04-20] MEDS: MULTIVITAMINS/MINERALS THERAP 1 TAB PO SCH (08:22)
[2019-04-20] MEDS: NICOTINE 21MG/24HR 1 EA TRANSDERMAL TD SCH (08:22)
[2019-04-20] MEDS: DOCUSATE SODIUM 100 MG CAP PO SCH (08:22)
[2019-04-20] MEDS: FOLIC ACID 1 MG TAB PO SCH (08:22)
[2019-04-20] MEDS: THIAMINE 100 MG TAB PO SCH (08:22)
[2019-04-20] MEDS ORDERED: FLEET ENEMA PR SCH (09:00)
[2019-04-20] MEDS ORDERED: BISACODYL 5 MG TAB PO ONE (09:00)
--- NOTE | 2019-04-20 12:48 | DS.PDOC ---
Discharge Summary General Date of Admission Apr 16, 2019 at 23:39 Date of Discharge 04/20/19 Primary Care Physician: JANAK VILLATORO MD Discharge Summary PROCEDURES PERFORMED DURING STAY: None. ADMITTING DIAGNOSES: 1. Hepatitis A. DISCHARGE DIAGNOSES: 1. Hepatitis A, IV drug abuse. COMPLICATIONS/CHIEF COMPLAINT: Cholestasis,Hepatitis. HISTORY OF PRESENT ILLNESS: 33-year-old female arrives to [facility] ED ambulating with complaints of sharp, stabbing epigastric, periumbilical abdominal pain that radiates to the right upper quadrant that worsened over the last few days that is followed by nausea and vomiting. She reports that she has been smoking methamphetamine with her last time smoking 6:00 this morning and she currently smokes 3-4 packs of cigarettes daily with alcohol frequently. She has significant medical history, reporting essential hypertension for which she was taking amlodipine for it, but is no longer taking it. She doesn't remember the last time she had medication and PTSD for which she is no longer taking medication. CT abdomen completed showing enlargement and thickening gallbladder without stones and without obstruction. At this time and lab work shows elevated LFTs. In reviewing patient's medical history, and physical exam, plus her comorbidities. Patient has the capacity to decompensate rapidly. The she will be admitted inpatient Med-Surg unit under hospitalist service for further evaluation.. HOSPITAL COURSE: Patient was admitted with the diagnosis of hepatitis A positive secondary to IV drug abuse. She was started on IV fluids initially kept nothing by mouth, but she was started on regular diet. Afterwards. Patient also received a morphine for severe abdominal pain. Patient is LFTs progressively improved and has been trending down since admission. Patient is completely asymptomatic and not icteric and tolerating oral feeding very well and she can be discharged home today and follow up with PCP in one week. Extensive counseling regarding IV drug use. Complications was done and patient understands very well, but does not seek any help at this present time. DISCHARGE MEDICATIONS: Please see below. ALLERGIES: Please see below. PHYSICAL EXAMINATION ON DISCHARGE: VITAL SIGNS: Please see below. GENERAL: Within normal limits HEENT: PERRLA. Extraocular was intact NECK: Supple CARDIOVASCULAR EXAMINATION: S1, S2, regular RESPIRATORY EXAMINATION: Clear to A&P ABDOMINAL EXAMINATION: , Soft, nontender, bowel sounds present EXTREMITIES: No clubbing, cyanosis, edema SKIN: Normal NEUROLOGICAL EXAMINATION: . No focal motor sensory deficit PSYCHIATRIC EXAMINATION: Within normal limits LABORATORY DATA: Please see below. IMAGING: Abdominal sono:1. Gallbladder wall thickening measuring 4-5 mm with internal sludge and no stones. 2. Otherwise negative right upper quadrant sonogram. PROGNOSIS: Fair ACTIVITY: As tolerated. DIET: As tolerated DISCHARGE PLAN: Follow with PCP in one week DISPOSITION: 01 Home, Self-Care. DISCHARGE INSTRUCTIONS: 1. As per discharge instructions. ITEMS TO FOLLOWUP ON ON OUTPATIENT: 1. All with PCP in one week. DISCHARGE CONDITION: Stable. TIME SPENT ON DISCHARGE: 25 minutes. Vital Signs/I&Os Vital Signs Date Time Temp Pulse Resp B/P (MAP) Pulse Ox O2 Delivery O2 Flow Rate FiO2 04/20/19 08:22 18 04/20/19 06:00 97.5 74 111/66 (81) 92 04/17/19 14:23 Room Air I&O- Last 24 Hours up to 6 AM 04/20/19 06:00 Intake Total 3720 ml Output Total 1700 ml Balance 2020 ml Laboratory Data Labs 24H Laboratory Tests 2 04/20/19 05:40: Nucleated Red Blood Cells % (auto) 0.0, Neutrophils 57, Band Neutrophils 1, Lymphocytes (Manual) 35, Monocytes (Manual) 5, Eosinophils (Manual) 1, Atypical Lymphocytes 1, Platelet Estimate NORMAL, Red Blood Cell Morphology NORMAL, Anion Gap 6L, Glomerular Filtration Rate > 60.0, Blood Urea Nitrogen 2#L, Creatinine 0.61, Sodium Level 138, Potassium Level 4.2, Chloride Level 104, Carbon Dioxide Level 28, Calcium Level 8.2L, Aspartate Amino Transf (AST/SGOT) 546H, Alanine Aminotransferase (ALT/SGPT) 1159H, Alkaline Phosphatase 548H, Total Bilirubin 4.6H, Total Protein 5.5L, Albumin 2.3L, Albumin/Globulin Ratio 0.72L CBC/BMP Laboratory Tests 04/20/19 05:40 Red Blood Count 4.18, Mean Corpuscular Volume 90.0, Mean Corpuscular Hemoglobin 29.7, Mean Corpuscular Hemoglobin Concent 33.0, Red Cell Distribution Width 13.4, Calcium Level 8.2 L, Aspartate Amino Transf (AST/SGOT) 546 H, Alanine Aminotransferase (ALT/SGPT) 1159 H, Alkaline Phosphatase 548 H, Total Bilirubin 4.6 H, Total Protein 5.5 L, Albumin 2.3 L Microbiology Microbiology 04/16/19 Blood Culture - Preliminary, Resulted No Growth after 72 hours. All specime... 04/16/19 Blood Culture - Preliminary, Resulted No Growth after 72 hours. All specime... Discharge Medications No Active Prescriptions or Reported Meds Allergies Coded Allergies: ketorolac (Verified Allergy, Mild, numbness tingling, restless legs, 12/13/18) JANAK VILLATORO MD Apr 20, 2019 12:48
== END 2019-04-20 10:46 | disposition home or self-care (01) ==
LOC: M ED 16:55 → M ED INP 23:39 → M MSPAV 04-17 14:40
PROVIDERS: ADMIT Internal Medicine; ATTEND Internal Medicine
DX: B15.9 Hepatitis A without hepatic coma (principal); K83.1 Obstruction of bile duct; I10 Essential (primary) hypertension; F17.210 Nicotine dependence, cigarettes, uncomplicated; F43.10 Post-traumatic stress disorder, unspecified; J45.909 Unspecified asthma, uncomplicated; F32.9 Major depressive disorder, single episode, unspecified; F41.9 Anxiety disorder, unspecified; F10.10 Alcohol abuse, uncomplicated; K21.9 Gastro-esophageal reflux disease without esophagitis; F15.10 Other stimulant abuse, uncomplicated; F12.10 Cannabis abuse, uncomplicated; Z88.6 Allergy status to analgesic agent

== ENCOUNTER 2019-04-21 09:45 | Inpatient (IN) | payer OTHER ==
[~2019-04-21] VITALS: Ht 157.5 cm; Wt 86.4 kg
[2019-04-21] MEDS ORDERED: METOCLOPRAMIDE INJ 10MG/2ML VIAL (J2765) IV ONE (10:45)
[2019-04-21] MEDS ORDERED: HALOPERIDOL 5 MG/ML VIAL (J1630) IV ONE (10:45)
[2019-04-21 10:55] LABS: HEMATOCRIT 39.6 % (36.0-47.0); HEMOGLOBIN 13.4 g/dl (12.0-15.5); MEAN CORPUSCULAR HEMOGLOBIN 30.6 pg (27.0-33.0); MEAN CORPUSCULAR HGB CONC 33.8 g/dl (32.0-36.5); MEAN CORPUSCULAR VOLUME 90.4 fl (80.0-96.0); PLATELET COUNT, AUTOMATED 275 10^3/uL (150-450); RED BLOOD COUNT 4.38 10^6/uL (4.00-5.40); WHITE BLOOD COUNT 5.3 10^3/uL (4.0-10.0)
[2019-04-21 11:07] LABS: INR 1.07; PROTHROMBIN TIME 13.6 SECONDS (11.8-14.0)
[2019-04-21 11:08] LABS: PARTIAL THROMBOPLASTIN TIME 35.8 SECONDS (25.0-38.4)
[2019-04-21 11:18] LABS: ATYPICAL LYMPH 3 % (0-5); BASOPHILS 1 % (0-1); LYMPHOCYTES 32 % (16-44); MONOCYTES 3 % (0-5); NEUTROPHILS 61 % (28-66)
[2019-04-21 11:19] LABS: PLATELET ESTIMATE NORMAL (NORMAL)
[2019-04-21 11:20] LABS: HCG, SERUM QUALITATIVE NEGATIVE (NEGATIVE)
[2019-04-21 11:25] LABS: ALBUMIN 2.9 GM/DL (3.2-5.2); ALT/SGPT 913 U/L (12-78); BILIRUBIN,DIRECT 6.3 MG/DL (0.0-0.2); BILIRUBIN,TOTAL 6.9 MG/DL (0.2-1.0); BLOOD UREA NITROGEN 3 MG/DL (7-18); CALCIUM LEVEL 8.4 MG/DL (8.5-10.1); CARBON DIOXIDE LEVEL 32 MEQ/L (21-32); CHLORIDE LEVEL 100 MEQ/L (98-107); CREATININE FOR GFR 0.67 MG/DL (0.55-1.30); GLOMERULAR FILTRATION RATE > 60.0 (>60); GLUCOSE, FASTING 79 MG/DL (70-100); LIPASE 81 U/L (73-393); POTASSIUM SERUM 3.7 MEQ/L (3.5-5.1); SODIUM LEVEL 138 MEQ/L (136-145); TOTAL PROTEIN 6.6 GM/DL (6.4-8.2)
[2019-04-21] MEDS ORDERED: MORPHINE 4 MG/ML 1ML VIAL/SYRINGE (J2270) IV ONE (14:00)
--- NOTE | 2019-04-21 14:28 | REP ---
Right upper quadrant abdominal ultrasound: The study is correlated with the abdomen/pelvis CT dated 04/16/2019. On the comparison CT there was mild pericholecystic fluid or wall edema. The The study today the gallbladder is distended measuring up to 3.5 cm transverse diameter. There is diffuse gallbladder wall thickening measuring up to 4.1 mm compatible with gallbladder wall edema. This may represent acalculous cholecystitis and should be correlated with clinical findings. There is no pericholecystic fluid. There is no cholelithiasis. There is no intrahepatic or extrahepatic biliary duct dilatation. The common biliary duct measures 5.1 mm in diameter. The hepatic parenchyma is homogeneous and unremarkable. The visualized areas of the pancreas are unremarkable. The right kidney measures 11.9 x 5.0 x 5.4 cm and is normal size. There is no right renal hydronephrosis, calculus, mass or cyst. There is no right upper quadrant ascites. Impression: Diffusely thickened gallbladder wall accompanied by gallbladder distension. There is no pericholecystic fluid or cholelithiasis. This may represent acalculous cholecystitis and should be correlated with clinical findings. Electronically Signed by Daniel Naranjo MD 04/21/2019 02:20 P
[2019-04-21] MEDS ORDERED: MAALOX 30 ML SUSP *UDC PO PRN (16:15)
[2019-04-21] MEDS: HEPARIN SOD (PORCINE) 5000 UNITS/ML VIAL SC SCH (21:38)
[2019-04-21] MEDS: DOCUSATE SODIUM 100 MG CAP PO SCH (21:38)
[2019-04-21] MEDS: MORPHINE 4 MG/ML 1ML VIAL/SYRINGE (J2270) IV PRN (21:39)
[2019-04-21 22:00] VITALS: BP 116/68
--- NOTE | 2019-04-21 23:12 | HPEPDOC ---
[facility] Medical History & Physical Date of Admission Apr 21, 2019 Date of Service: Apr 21, 2019 History and Physical CHIEF COMPLAINT: [abd pain ] HISTORY OF PRESENT ILLNESS: This is a 33 yo female with multiple pmhx listed b elow who was discharged yesterday and came back for periumbical abd pain with nausea, with hot and cold sensations. denied fever, chills, vomiting or chest pain. Allergies Coded Allergies: ketorolac (Verified Allergy, Mild, numbness tingling, restless legs, Medical History Essential hypertension anxiety hep A depression PTSD polysubstance abuse nicotine abuse alcohol abuse asthma GERD ectopic migraine, MRSA on the left axillary history Surgical History LEEP, tonsillectomy and adenoids, Significant Family History: Heart disease (DadMI 2), Hypertension (Dad), Hyperlipidemia (dad), Other ( Momthyroid) SOCIAL HX Smoker: current smoker, less than 5 cigs/day, cigarettes Drugs: marijuana, IV drug use, other (meth daily, started using approximately 9 months) Recent Travel/Sick Contacts: Denies: Recent travel, Recent sick contacts Psychosocial History: Afshin SI and HI (previous SI attempts, multiple), Depression, PTSD ROS - all 10 point review of system is negative except for whats listed in HPI Physical exam Gen: NAD, healthy appearing , HEENT: normocephalic, atraumatic, no discharge from ears or nose, no oropharyngeal erythema or exudate, neck is supple, no lymphadenopathy, trachea midline , oral thrush ( hiv neg recently check) CVS: RRR, normal S1n S2, no murmur, rubs, or gallops, no edema, no jvd Resp: LCTAB, no rhonchi, wheezes or crackles Abd : soft, positive diffused abd tenderness, normal bowel sounds, no rebound tenderness or guarding MSK: no swelling, full range of motion, strength 5/5 Neuro: AOAx3, no confusion, no focal deficit Psych: normal mood and affect, good judgment Assessment and plan ABD pain 2/2 aculculous cholecystitis -prn pain meds - ivf -clear liquid diet -consider surgery consult - advance diet as tolerated - transaminitis improving ( recently dx with hep A) - f/u blood cx - monitor off abx for now ( no other sign of infection) -f/u procalcitonin multiple substance abuse f/u utox dvt ppx full code , from home , no svc Vital Signs Vital Signs Date Time Temp Pulse Resp B/P (MAP) Pulse Ox O2 Delivery O2 Flow Rate FiO2 04/21/19 22:00 97.3 61 18 116/68 (84) 96 04/21/19 09:54 Room Air Laboratory Data Labs 24H Laboratory Tests 2 04/21/19 10:33: Prothrombin Time 13.6, Prothromb Time International Ratio 1.07, Activated Partial Thromboplast Time 35.8 04/21/19 10:40: Nucleated Red Blood Cells % (auto) 0.0, Neutrophils 61, Lymphocytes (Manual) 32, Monocytes (Manual) 3, Basophils (Manual) 1, Atypical Lymphocytes 3, Platelet Estimate NORMAL, Anion Gap 6L, Glomerular Filtration Rate > 60.0, Calcium Level 8.4L, Aspartate Amino Transf (AST/SGOT) 310H, Alanine Aminotransferase (ALT/SGPT) 913H, Alkaline Phosphatase 743H, Total Bilirubin 6.9H, Direct Bilirubin 6.3H, Total Protein 6.6, Albumin 2.9#L, Albumin/Globulin Ratio 0.78L, Lipase 81, Human Chorionic Gonadotropin, Qual NEGATIVE CBC/BMP Laboratory Tests 04/21/19 10:40 Red Blood Count 4.38, Mean Corpuscular Volume 90.4, Mean Corpuscular Hemoglobin 30.6, Mean Corpuscular Hemoglobin Concent 33.8, Red Cell Distribution Width 13.7 Home Medications No Active Prescriptions or Reported Meds Allergies Coded Allergies: ketorolac (Verified Adverse Reaction, Mild, numbness tingling, restless legs, 04/21/19) A-FIB/CHADSVASC A-FIB History Current/History of A-Fib/PAF?: No Current PO Anticoag Therapy: No Age/Risk Factor Scoring CHADSVASC: CHADSVASC Response (Comments) Value Age Risk Factor Age < 65 years old 0 Gender Risk Factor Female 1 Hx of CHF No 0 Hx of HTN No 0 Hx of Stroke/TIA/or VTE No 0 Hx of Diabetes No 0 Hx of Vascular Disease No 0 Total 1 Treatment Treatment ordered: NONE Reason Anticoagulant not given: Not indicated/[id number] BRENDA FRAGA MD Apr 21, 2019 23:12
[2019-04-22] MEDS: MORPHINE 4 MG/ML 1ML VIAL/SYRINGE (J2270) IV PRN ×4 (02:18→17:06)
[2019-04-22] MEDS: HEPARIN SOD (PORCINE) 5000 UNITS/ML VIAL SC SCH ×3 (05:51→20:30)
[2019-04-22 06:04] VITALS: BP 152/110
[2019-04-22 06:27] VITALS: BP 136/77
[2019-04-22 06:53] LABS: HEMATOCRIT 36.8 % (36.0-47.0); HEMOGLOBIN 12.6 g/dl (12.0-15.5); MEAN CORPUSCULAR HEMOGLOBIN 30.9 pg (27.0-33.0); MEAN CORPUSCULAR HGB CONC 34.2 g/dl (32.0-36.5); MEAN CORPUSCULAR VOLUME 90.2 fl (80.0-96.0); PLATELET COUNT, AUTOMATED 243 10^3/uL (150-450); RED BLOOD COUNT 4.08 10^6/uL (4.00-5.40); WHITE BLOOD COUNT 4.2 10^3/uL (4.0-10.0)
[2019-04-22 07:31] LABS: ALBUMIN 2.5 GM/DL (3.2-5.2); ALT/SGPT 638 U/L (12-78); BILIRUBIN,TOTAL 5.7 MG/DL (0.2-1.0); BLOOD UREA NITROGEN 3 MG/DL (7-18); CALCIUM LEVEL 8.3 MG/DL (8.5-10.1); CARBON DIOXIDE LEVEL 28 MEQ/L (21-32); CHLORIDE LEVEL 102 MEQ/L (98-107); CREATININE FOR GFR 0.53 MG/DL (0.55-1.30); GLOMERULAR FILTRATION RATE > 60.0 (>60); GLUCOSE, FASTING 76 MG/DL (70-100); MAGNESIUM LEVEL 1.9 MG/DL (1.8-2.4); POTASSIUM SERUM 3.8 MEQ/L (3.5-5.1); SODIUM LEVEL 137 MEQ/L (136-145); TOTAL PROTEIN 6.3 GM/DL (6.4-8.2)
[2019-04-22] MEDS: DOCUSATE SODIUM 100 MG CAP PO SCH ×2 (09:00→20:30)
--- NOTE | 2019-04-22 13:22 | IPNPDOC ---
Subjective Date Seen The patient was seen on 04/22/19. Subjective Chief Complaint/HPI Erickson has returned to the hospital within a day of her previous discharge. The discharge summary suggests that her right upper quadrant symptoms had improved at the time of discharge, but she contests this narrative. She states she was still having right upper quadrant abdominal pain at the time of her discharge. She was also struggling with constipation. She was given an enema and did have a bowel movement; then she was discharged. While she admits she felt some better after the constipation resolved she never felt that the right upper quadrant resolved. She reports that her right upper quadrant continues to hurt. She states she's had problems with her gallbladder over the years; even before she got the hepatitis A for which she was recently treated. She is really interested in having her gallbladder out if possible. She is asking if she can have a pain medication with a longer duration of the IV morphine she is currently pre scribed. She is honest that she would like to minimize the narcotics as she has had a problem with opioid abuse as recently as 2016. She also complains of a persistent headache. When prompted she reports she has not used methamphetamine for 5 days. She admits that it's likely her headache relates to the methamphetamine withdrawal. She states she has used Excedrin Migraine successfully in the past to help deal with her headaches. Constitutional: Denies: Chills, Fever Skin: Reports: Jaundice, Itching (usually around the time she receives narcotic medications) Pulmonary: Denies: Cough Cardiovascular: Denies: Chest Pain, Palpitations Gastrointestinal: Reports: Abdominal Pain Genitourinary: Denies: Dysuria Psych: Reports: Mood Normal Objective Physical Examination General Exam: Positive: Alert, Cooperative, No Acute Distress (she is laying on her left side resting when I enter the room.) Eye Exam: Positive: PERRLA, Conjunctiva & lids normal, Sclera icteric (mildly) ENT Exam: Positive: Mucous membr. moist/pink Neck Exam: Negative: Lymphadenopathy Chest Exam: Positive: Clear to auscultation, Normal air movement Heart Exam: Positive: Rate Normal, Normal S1, Normal S2; Negative: Murmurs Abdomen Exam: Positive: Normal bowel sounds, BS Hypoactive, Soft, Tenderness (palpation of the right upper quadrant) Extremity Exam: Negative: Edema Psych Exam: Positive: Mood NL, Oriented x 3 Assessment /Plan Problems (1) Acute acalculous cholecystitis Status: Acute Problem Specific Plan: Monitor Clinically, Repeat Labs Problem Text: It's not entirely clear to me if the cholecystitis is secondary to inflammation from the hepatitis A affecting the liver or an entirely separate clinical entity. Regardless I will order a HIDA scan. Assuming this shows a low gallbladder ejection fraction I will consult surgery. (2) Hepatitis A Status: Acute Response to Treatment: Improving Problem Specific Plan: Monitor Clinically, Repeat Labs Problem Text: Her liver functions continued to improve. She'll not need hepatitis A vaccination now as she has had the acute infection, but we should make sure she has received hepatitis B vaccination. If we don't have evidence that she did as a child, we should consider giving her at least the first dose of this before leaving the hospital. (3) Elevated LFTs Status: Acute Response to Treatment: Improving Problem Text: Related to improvement of the hepatitis A. See above. (4) Abdominal pain Status: Acute Response to Treatment: Uncontrolled Discussed With: Nurse, Patient Problem Text: I will add Alpine 5/325 to her pain regimen. Anticipate this longer-lasting oral medication will help reduce the amount of morphine she is using. I did leave the IV morphine on as a when necessary for the pain flares. (5) History of opioid abuse Response to Treatment: Controlled Discussed With: Nurse, Patient Problem Text: We'll need to monitor the amount of narcotic she is using on a regular basis. (6) Methamphetamine use disorder, mild, in early remission, abuse Status: Acute Response to Treatment: Improving Discussed With: Nurse, Patient Problem Text: She has a constant headache and I suspect it's related to withdrawal from methamphetamine. I prescribed Excedrin Migraine to help with this symptom. We will need to carefully monitor the amount of acetaminophen she is getting based on the new medications of ordered today. Plan/VTE VTE Prophylaxis Ordered?: Yes (subcutaneous heparin) Plan Anticipated Discharge: Home VS, I&O, 24H, [facility] Vital Signs/I&O Vital Signs Date Time Temp Pulse Resp B/P (MAP) Pulse Ox O2 Delivery O2 Flow Rate FiO2 04/22/19 10:57 18 04/22/19 10:47 98 04/22/19 06:27 136/77 (96) 04/22/19 06:04 97.6 65 04/21/19 09:54 Room Air I&O- Last 24 Hours up to 6 AM 04/22/19 06:00 Intake Total 960 ml Balance 960 ml Laboratory Data 24H LABS Laboratory Tests 2 04/22/19 06:42: Nucleated Red Blood Cells % (auto) 0.0, Anion Gap 7L, Glomerular Filtration Rate > 60.0, Blood Urea Nitrogen 3L, Creatinine 0.53L, Sodium Level 137, Potassium Level 3.8, Chloride Level 102, Carbon Dioxide Level 28, Calcium Level 8.3L, Aspartate Amino Transf (AST/SGOT) 222H, Alanine Aminotransferase (ALT/SGPT) 638H, Alkaline Phosphatase 616H, Total Bilirubin 5.7H, Total Protein 6.3L, Albu min 2.5L, Magnesium Level 1.9, Albumin/Globulin Ratio 0.66L CBC/BMP Laboratory Tests 04/22/19 06:42 Red Blood Count 4.08, Mean Corpuscular Volume 90.2, Mean Corpuscular Hemoglobin 30.9, Mean Corpuscular Hemoglobin Concent 34.2, Red Cell Distribution Width 13.9, Calcium Level 8.3 L, Aspartate Amino Transf (AST/SGOT) 222 H, Alanine Aminotransferase (ALT/SGPT) 638 H, Alkaline Phosphatase 616 H, Total Bilirubin 5.7 H, Total Protein 6.3 L, Albumin 2.5 L Rakan Catalan MD Apr 22, 2019 13:22
[2019-04-22] MEDS ORDERED: EXCEDRIN MIGRAINE TABLET PO PRN (13:30)
[2019-04-22 14:00] VITALS: BP 133/77
[2019-04-22] MEDS: NORCO, ANEXSIA 5/325MG TABLET (HYDROcodone/ACETAMINOPHEN) PO PRN ×2 (14:16→20:29)
[2019-04-22] MEDS: diphenhydrAMINE 50 MG CAP PO PRN (18:23)
[2019-04-22 22:00] VITALS: BP 130/97
[2019-04-23] MEDS: NORCO, ANEXSIA 5/325MG TABLET (HYDROcodone/ACETAMINOPHEN) PO PRN ×4 (02:33→21:13)
[2019-04-23] MEDS: MORPHINE 4 MG/ML 1ML VIAL/SYRINGE (J2270) IV PRN ×4 (04:11→23:09)
[2019-04-23] MEDS: HEPARIN SOD (PORCINE) 5000 UNITS/ML VIAL SC SCH ×3 (05:51→21:13)
[2019-04-23 06:00] VITALS: BP 120/67
[2019-04-23 07:05] LABS: BASO % 0.2 % (0.0-1.0); EOS # 0.2 10^3/uL (0.0-0.5); EOS % 3.3 % (0.0-3.0); HEMATOCRIT 36.2 % (36.0-47.0); LYMPH # 1.8 10^3/uL (1.5-5.0); LYMPH % 39.6 % (24.0-44.0); MEAN CORPUSCULAR HEMOGLOBIN 29.3 pg (27.0-33.0); MEAN CORPUSCULAR HGB CONC 33.1 g/dl (32.0-36.5); MEAN CORPUSCULAR VOLUME 88.5 fl (80.0-96.0); MONO # 0.3 10^3/uL (0.0-0.8); MONO % 5.9 % (0.0-5.0); NEUTROPHILS # 2.3 10^3/uL (1.5-8.5); NEUTROPHILS % 50.1 % (36.0-66.0); PLATELET COUNT, AUTOMATED 276 10^3/uL (150-450); RED BLOOD COUNT 4.09 10^6/uL (4.00-5.40); WHITE BLOOD COUNT 4.6 10^3/uL (4.0-10.0)
[2019-04-23 07:22] LABS: ALBUMIN 2.3 GM/DL (3.2-5.2); ALT/SGPT 453 U/L (12-78); BILIRUBIN,TOTAL 3.4 MG/DL (0.2-1.0); BLOOD UREA NITROGEN 3 MG/DL (7-18); CARBON DIOXIDE LEVEL 29 MEQ/L (21-32); CHLORIDE LEVEL 103 MEQ/L (98-107); CREATININE FOR GFR 0.64 MG/DL (0.55-1.30); GLOMERULAR FILTRATION RATE > 60.0 (>60); GLUCOSE, FASTING 91 MG/DL (70-100); POTASSIUM SERUM 3.3 MEQ/L (3.5-5.1); SODIUM LEVEL 140 MEQ/L (136-145); TOTAL PROTEIN 6.1 GM/DL (6.4-8.2)
[2019-04-23] MEDS ORDERED: INFLUENZA QUADRIVALENT PF VACCINE 0.5ML SYRINGE (90686) IM ONE (09:00)
[2019-04-23] MEDS: DOCUSATE SODIUM 100 MG CAP PO SCH ×2 (09:00→20:27)
[2019-04-23] MEDS: diphenhydrAMINE 50 MG CAP PO PRN ×2 (09:00→18:37)
[2019-04-23 14:00] VITALS: BP 125/80
--- NOTE | 2019-04-23 16:04 | IPNPDOC ---
Subjective Date Seen The patient was seen on 04/23/19. Subjective Chief Complaint/HPI Erickson reports that her right upper quadrant pain is better controlled today, but this is with oral Anderson. She also reports that the rash on her left elbow has progressed some and there is a similar spot forming on her right elbow. We had a deb discussion about her methamphetamine addiction. She reports that she is happy she's a week sober. She reports it's been months since she's been able to do that. She is scared about what methamphetamine is doing (hepatitis A for example) to her and what he could do to her children. She reports motivation to stay sober. She would like to be contact with [facility] addiction services for outpatient therapy. She reports that her twin sister is currently receiving services through [facility] and they would like to keep their treatments separate. General: Reports: Normal Appetite Constitutional: Denies: Chills, Fever Skin: Reports: Rash (on her elbows) Pulmonary: Denies: Dyspnea, Cough Cardiovascular: Denies: Chest Pain, Palpitations Gastrointestinal: Reports: Abdominal Pain, Constipation Psych: Reports: Mood Normal Objective Physical Examination General Exam: Positive: Alert, Cooperative, No Acute Distress (she is laying on her right side resting when I enter the room.) Eye Exam: Positive: PERRLA, Conjunctiva & lids normal, Sclera icteric (mild now only under the eyelids) ENT Exam: Positive: Mucous membr. moist/pink Neck Exam: Positive: Supple; Negative: Lymphadenopathy Chest Exam: Positive: Clear to auscultation, Normal air movement Heart Exam: Positive: Rate Normal, Normal S1, Normal S2; Negative: Murmurs Abdomen Exam: Positive: BS Hypoactive, Soft; Negative: Tenderness Extremity Exam: Negative: Edema Skin Exam: Positive: Rash (there is a large salmon colored patch on the extensor surface of her left elbow. There are several satellite lesions. There is a similar lesion developing on the extensor surface of her right elbow, but this is much smaller.), Pruritus Psych Exam: Positive: Mood NL, Oriented x 3 Assessment /Plan Problems (1) Acute acalculous cholecystitis Status: Acute Problem Specific Plan: Monitor Clinically, Repeat Labs Problem Text: I spoke unofficially to the surgeon on-call today. He suggested I canceled the HIDA scan that is scheduled for tomorrow as it will not chemical cell changer. He thinks it would be unwise to try to remove her gallbladder from under an acutely inflamed liver and this makes sense to me. He also reaffirms the possibility of cholecystitis simply because of the inflammatory milieux of the large organ above it. He strongly suggested, hepatitis A all the way down and then reassess the gallbladder. I explained this to the patient. She understands it, but would like to have the gallbladder looked at eventually. This is been bothering her intermittently for almost a decade. (2) Hepatitis A Status: Acute Response to Treatment: Improving Problem Specific Plan: Monitor Clinically, Repeat Labs Problem Text: Her liver functions continued to improve. She'll not need hepatitis A vaccination now as she has had the acute infection, but we should make sure she has received hepatitis B vaccination. If we don't have evidence that she did as a child, we should consider giving her at least the first dose of this before leaving the hospital. I do think it would be mcmullen for her to follow-up with Dr. Pan after this episode, however, she has not been consulted while the patient was in the hospital as this infectious disease is acute and is resolving. (3) Elevated LFTs Status: Acute Response to Treatment: Improving Problem Text: Related to improvement of the hepatitis A. See above. (4) Methamphetamine use disorder, mild, in early remission, abuse Status: Acute Response to Treatment: Improving Discussed With: Nurse, Patient Problem Text: Her headache resolved with the Excedrin Migraine yesterday. She is ready to receive help with her methamphetamine abuse. I spoke to the emergency department staff and they said there is a dialysis social worker from [facility] there Wednesday through Wednesday who would be able to come up and do a brief assessment/intervention with the patient. This person can be reached on Wednesday juan ramon hines at [phone]. The nursing staff felt they could then connect her with [facility]. (5) Abdominal pain Status: Acute Response to Treatment: Controlled Discussed With: Nurse, Patient Problem Text: The Anderson 5/325 seems to be helping her. She only used 2 doses of when necessary morphine in the last 24 hours. She will likely need a small amount of this medication when she goes home for pain control while she continues to heal. We are very deb discussion about this. There is significant danger in giving her narcotics to take at home when she has a history of opioid abuse as recently as 2016. She is aware of this and states that she beat it before and has no intention of undoing her own hard work. (6) History of opioid abuse Response to Treatment: Controlled Discussed With: Nurse, Patient Problem Text: We'll need to monitor the amount of narcotic she is using on a regular basis. 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 The only way to truly confirm this would be a skin biopsy with positive findings on direct immunofluorescence. I do not believe it's important enough to do the biopsy at this time. I did change her diet to a gluten free diet to see if this helps. Because of the pruritus I prescribed topical hydrocortisone. If this does not work, dapsone may be considered, but that has its own set of serious side effects to watch for. Plan/VTE VTE Prophylaxis Ordered?: Yes (subcutaneous heparin) Plan Diet: Advance Diagnostics: Repeat Labs in AM Anticipated Discharge: Home VS, I&O, 24H, [facility] Vital Signs/I&O Vital Signs Date Time Temp Pulse Resp B/P (MAP) Pulse Ox O2 Delivery O2 Flow Rate FiO2 04/23/19 15:30 18 04/23/19 14:00 98.2 76 125/80 (95) 94 04/21/19 09:54 Room Air I&O- Last 24 Hours up to 6 AM 04/23/19 06:00 Intake Total 2770 ml Output Total 750 ml Balance 2020 ml Laboratory Data 24H LABS Laboratory Tests 2 04/23/19 06:28: Immature Granulocyte % (Auto) 0.9, White Blood Count 4.6, Red Blood Count 4.09, Hemoglobin 12.0, Hematocrit 36.2, Mean Corpuscular Volume 88.5, Mean Corpuscular Hemoglobin 29.3, Mean Corpuscular Hemoglobin Concent 33.1, Red Cell Distribution Width 14.3, Platelet Count 276, Neutrophils (%) (Auto) 50.1, Lymphocytes (%) (Auto) 39.6, Monocytes (%) (Auto) 5.9H, Eosinophils (%) (Auto) 3.3H, Basophils (%) (Auto) 0.2, Neutrophils # (Auto) 2.3, Lymphocytes # (Auto) 1.8, Monocytes # (Auto) 0.3, Eosinophils # (Auto) 0.2, Basophils # (Auto) 0.0, Nucleated Red Blood Cells % (auto) 0.0, Anion Gap 8, Glomerular Filtration Rate > 60.0, Blood Urea Nitrogen 3L, Creatinine 0.64, Sodium Level 140, Potassium Level 3.3L, Chloride Level 103, Carbon Dioxide Level 29, Calcium Level 8.0L, Aspartate Amino Transf (AST/SGOT) 139H, Alanine Aminotransferase (ALT/SGPT) 453H, Alkaline Phosphatase 505H, Total Bilirubin 3.4H, Total Protein 6.1L, Albumin 2.3L, Albumin/Globulin Ratio 0.61L CBC/BMP Laboratory Tests 04/23/19 06:28 Red Blood Count 4.09, Mean Corpuscular Volume 88.5, Mean Corpuscular Hemoglobin 29.3, Mean Corpuscular Hemoglobin Concent 33.1, Red Cell Distribution Width 14.3, Neutrophils (%) (Auto) 50.1, Lymphocytes (%) (Auto) 39.6, Monocytes (%) (Auto) 5.9 H, Eosinophils (%) (Auto) 3.3 H, Basophils (%) (Auto) 0.2, Neutrophils # (Auto) 2.3, Lymphocytes # (Auto) 1.8, Monocytes # (Auto) 0.3, Eosinophils # (Auto) 0.2, Basophils # (Auto) 0.0, Calcium Level 8.0 L, Aspartate Amino Transf (AST/SGOT) 139 H, Alanine Aminotransferase (ALT/SGPT) 453 H, Alkaline Phosphatase 505 H, Total Bilirubin 3.4 H, Total Protein 6.1 L, Albumin 2.3 L Rakan Catalan MD Apr 23, 2019 4:04 pm
[2019-04-23 22:00] VITALS: BP 124/84
[2019-04-23] MEDS ORDERED: SENOKOT S TAB PO PRN (22:45)
[2019-04-23] MEDS ORDERED: HYDROCORTISONE 1% CREAM 30 GM TOP PRN (22:45)
[2019-04-24] MEDS: diphenhydrAMINE 50 MG CAP PO PRN (03:17)
[2019-04-24] MEDS: NORCO, ANEXSIA 5/325MG TABLET (HYDROcodone/ACETAMINOPHEN) PO PRN ×2 (03:18→09:52)
[2019-04-24 06:00] VITALS: BP 124/84
[2019-04-24] MEDS: HEPARIN SOD (PORCINE) 5000 UNITS/ML VIAL SC SCH (06:04)
[2019-04-24 06:17] LABS: HEMATOCRIT 35.8 % (36.0-47.0); MEAN CORPUSCULAR HEMOGLOBIN 29.6 pg (27.0-33.0); MEAN CORPUSCULAR HGB CONC 33.5 g/dl (32.0-36.5); MEAN CORPUSCULAR VOLUME 88.4 fl (80.0-96.0); PLATELET COUNT, AUTOMATED 254 10^3/uL (150-450); RED BLOOD COUNT 4.05 10^6/uL (4.00-5.40); WHITE BLOOD COUNT 5.2 10^3/uL (4.0-10.0)
[2019-04-24 06:52] LABS: ATYPICAL LYMPH 3 % (0-5); BASOPHILS 1 % (0-1); EOSINOPHILS 2 % (0-3); LYMPHOCYTES 53 % (16-44); MONOCYTES 5 % (0-5); NEUTROPHILS 36 % (28-66); PLATELET ESTIMATE NORMAL (NORMAL)
[2019-04-24 07:57] LABS: ALBUMIN 2.4 GM/DL (3.2-5.2); ALT/SGPT 340 U/L (12-78); BILIRUBIN,TOTAL 2.2 MG/DL (0.2-1.0); BLOOD UREA NITROGEN 5 MG/DL (7-18); CALCIUM LEVEL 8.2 MG/DL (8.5-10.1); CARBON DIOXIDE LEVEL 29 MEQ/L (21-32); CHLORIDE LEVEL 104 MEQ/L (98-107); CREATININE FOR GFR 0.54 MG/DL (0.55-1.30); GLOMERULAR FILTRATION RATE > 60.0 (>60); GLUCOSE, FASTING 71 MG/DL (70-100); POTASSIUM SERUM 3.7 MEQ/L (3.5-5.1); SODIUM LEVEL 139 MEQ/L (136-145); TOTAL PROTEIN 6.2 GM/DL (6.4-8.2)
[2019-04-24] MEDS ORDERED: IBUPROFEN 800 MG TAB PO PRN (08:15)
[2019-04-24] MEDS: DOCUSATE SODIUM 100 MG CAP PO SCH (08:38)
[2019-04-24] MEDS ORDERED: HYDR-4571 PO (11:20)
[2019-04-24] MEDS ORDERED: HYDR1CR TOP (11:20)
[2019-04-24] MEDS ORDERED: IBUP80TA PO (11:20)
--- NOTE | 2019-04-25 09:06 | DSES ---
DATE OF ADMISSION: 04/21/2019 DATE OF DISCHARGE: 04/24/2019 PRIMARY CARE PROVIDER: TONI Anderson ATTENDING PHYSICIAN: Dr. Tadeo Nj HISTORY OF PRESENT ILLNESS: 33-year-old female who was admitted for recurrent periumbilical abdominal pain with nausea and hot and cold sensation. Workup proved positive for cholecystitis of the gallbladder and hepatitis A. HOSPITAL COURSE: The patient will need to have her hepatitis A cleared prior to being able to proceed with any sort of surgical intervention for her gallbladder. She was subsequently hydrated and has been tolerating by mouth food and fluids well. Her total bilirubin has come down from 5.7 to 2.2 and AST 222 to 131, ALT 638 to 340. Most recent GGT was completed at 769. Alkaline phosphatase is at 563. The patient utilized hydrocodone as well as morphine as needed for pain. The patient has not received any IV morphine in 12 hours secondary to losing her IV site and declining a reinsertion. She states her pain was well controlled with the hydrocodone one tab. She took approximately three tablets per 24 hour time frame as needed for pain. IMAGING: Gallbladder ultrasound on 04/16/2019, the patient is status post CT of abdomen and pelvis. She had some mild pericholecystic fluid, wall edema along the liver interface, borderline splenomegaly, and a fatty nodule on the right adrenal gland. ASSESSMENT: 1. Hepatitis A. 2. Cholecystitis. 3. History of opioid, heroin and methamphetamine addiction. PLAN: The patient will be discharged to home. Diet is as tolerated. Activity is as tolerated. Pain management includes hydrocodone one by mouth every 6 hours as needed for pain, #4, given. The rest of her pain management can be managed by her PCP at her followup tomorrow. Other medications include hydrocortisone cream for an itchy rash to both elbows, as well as, ibuprofen 800 mg by mouth every 8 hours as needed for pain. The patient is discharged in stable and satisfactory condition with no further questions at time of plan.
== END 2019-04-24 13:00 | disposition home or self-care (01) ==
LOC: M ED 09:45 → EDBD 09:45 → M ED INP 16:04 → M MS5PR 17:46
PROVIDERS: ADMIT Internal Medicine; ATTEND Family Medicine
DX: K81.0 Acute cholecystitis (principal); L13.0 Dermatitis herpetiformis; I10 Essential (primary) hypertension; B17.9 Acute viral hepatitis, unspecified; F41.9 Anxiety disorder, unspecified; K21.9 Gastro-esophageal reflux disease without esophagitis; F10.10 Alcohol abuse, uncomplicated; G43.909 Migraine, unspecified, not intractable, without status migrainosus; F43.10 Post-traumatic stress disorder, unspecified; F17.210 Nicotine dependence, cigarettes, uncomplicated; J45.909 Unspecified asthma, uncomplicated; F11.90 Opioid use, unspecified, uncomplicated

== ENCOUNTER 2019-05-10 22:12 | Emergency (ER) | payer OTHER ==
[~2019-05-10] VITALS: Ht 160 cm; Wt 84.8 kg
[~2019-05-10 22:12] MED LIST changes: +HYDR-4571 PO; +HYDR1CR TOP; +IBUP80TA PO; -OMEP1CAP73 PO; +OMEP20CA4 PO; +TRAZ-163 PO; -TRAZ-257 PO
[2019-05-11 06:43] LABS: HEMOGLOBIN 12.8 g/dl (12.0-15.5); MEAN CORPUSCULAR HGB CONC 32.8 g/dl (32.0-36.5); MEAN CORPUSCULAR VOLUME 94.4 fl (80.0-96.0); PLATELET COUNT, AUTOMATED 256 10^3/uL (150-450); RED BLOOD COUNT 4.13 10^6/uL (4.00-5.40); WHITE BLOOD COUNT 6.3 10^3/uL (4.0-10.0)
[2019-05-11 06:55] LABS: HCG, SERUM QUALITATIVE NEGATIVE (NEGATIVE)
[2019-05-11 07:04] LABS: ACETAMINOPHEN LEVEL < 2.0 UG/ML (10.0-30.0); ALBUMIN 2.8 GM/DL (3.2-5.2); ALT/SGPT 22 U/L (12-78); BILIRUBIN,DIRECT 0.4 MG/DL (0.0-0.2); BILIRUBIN,TOTAL 0.4 MG/DL (0.2-1.0); BLOOD UREA NITROGEN 11 MG/DL (7-18); CARBON DIOXIDE LEVEL 29 MEQ/L (21-32); CHLORIDE LEVEL 108 MEQ/L (98-107); CREATININE FOR GFR 0.67 MG/DL (0.55-1.30); ETHYL ALCOHOL (ETHANOL) < 0.003 % (0.000-0.010); GLOMERULAR FILTRATION RATE > 60.0 (>60); GLUCOSE, FASTING 75 MG/DL (70-100); POTASSIUM SERUM 3.5 MEQ/L (3.5-5.1); SALICYLATE LEVEL < 1.7 MG/DL (5.0-30.0); SODIUM LEVEL 141 MEQ/L (136-145); THYROID STIMULATING HORMONE 0.284 uIU/ML (0.358-3.740); TOTAL PROTEIN 5.8 GM/DL (6.4-8.2)
[2019-05-11 07:10] LABS: AMPHETAMINES LEVEL URINE POSITIVE (NEGATIVE); BARBITURATES URINE NEGATIVE (NEGATIVE); BENZODIAZEPINES URINE POSITIVE (NEGATIVE); CANNABINOIDS URINE POSITIVE (NEGATIVE); COCAINE METABOLITE URINE NEGATIVE (NEGATIVE); METHADONE URINE NEGATIVE (NEGATIVE); OPIATES URINE NEGATIVE (NEGATIVE); PHENCYCLIDINE URINE NEGATIVE (NEGATIVE)
[2019-05-11 09:25] VITALS: BP 136/79
== END 2019-05-11 10:25 | disposition home or self-care (01) ==
LOC: M ED 22:12
DX: F15.20 Other stimulant dependence, uncomplicated (principal); I10 Essential (primary) hypertension; F32.9 Major depressive disorder, single episode, unspecified; F43.10 Post-traumatic stress disorder, unspecified; F41.9 Anxiety disorder, unspecified; J45.909 Unspecified asthma, uncomplicated; K21.9 Gastro-esophageal reflux disease without esophagitis; G43.909 Migraine, unspecified, not intractable, without status migrainosus; Z88.8 Allergy status to other drugs, medicaments and biological substances
CPT/HCPCS: 80048; 80076; 80307; 84443; 84703; 85027; 99284; G0480

== ENCOUNTER → 2019-05-25 | Outpatient (CLI) | payer MEDICAID | LOC: M OUTALCOH 09:25 | PROVIDERS: ATTEND Psychiatry & Neurology Psychiatry | DX: Z53.9 Procedure and treatment not carried out, unspecified reason (principal) ==

== ENCOUNTER 2019-08-12 16:58 | Inpatient (IN) | payer MEDICAID ==
[~2019-08-12] VITALS: Ht 160 cm; Wt 81.4 kg
[~2019-08-12 16:58] MED LIST changes: +OMEP1CAP73 PO; -OMEP20CA4 PO; -TRAZ-163 PO; +TRAZ-257 PO
[2019-08-12 17:29] LABS: HEMATOCRIT 44.7 % (36.0-47.0); HEMOGLOBIN 14.1 g/dl (12.0-15.5); MEAN CORPUSCULAR HEMOGLOBIN 28.6 pg (27.0-33.0); MEAN CORPUSCULAR HGB CONC 31.5 g/dl (32.0-36.5); MEAN CORPUSCULAR VOLUME 90.7 fl (80.0-96.0); PLATELET COUNT, AUTOMATED 342 10^3/uL (150-450); RED BLOOD COUNT 4.93 10^6/uL (4.00-5.40); WHITE BLOOD COUNT 10.7 10^3/uL (4.0-10.0)
[2019-08-12] MEDS ORDERED: NICOTINE 21MG/24HR 1 EA TRANSDERMAL TD ONE (17:30)
[2019-08-12 17:58] LABS: AMPHETAMINES LEVEL URINE POSITIVE (NEGATIVE); BARBITURATES URINE NEGATIVE (NEGATIVE); BENZODIAZEPINES URINE NEGATIVE (NEGATIVE); CANNABINOIDS URINE POSITIVE (NEGATIVE); COCAINE METABOLITE URINE NEGATIVE (NEGATIVE); METHADONE URINE NEGATIVE (NEGATIVE); OPIATES URINE NEGATIVE (NEGATIVE); PHENCYCLIDINE URINE NEGATIVE (NEGATIVE)
[2019-08-12 18:11] LABS: HCG, SERUM QUALITATIVE NEGATIVE (NEGATIVE)
[2019-08-12 18:29] LABS: ACETAMINOPHEN LEVEL < 2.0 UG/ML (10.0-30.0); ALBUMIN 3.9 GM/DL (3.2-5.2); ALT/SGPT 22 U/L (12-78); BILIRUBIN,DIRECT < 0.1 MG/DL (0.0-0.2); BILIRUBIN,TOTAL 0.3 MG/DL (0.2-1.0); BLOOD UREA NITROGEN 13 MG/DL (7-18); CALCIUM LEVEL 8.7 MG/DL (8.5-10.1); CARBON DIOXIDE LEVEL 27 MEQ/L (21-32); CHLORIDE LEVEL 105 MEQ/L (98-107); CREATININE FOR GFR 0.73 MG/DL (0.55-1.30); ETHYL ALCOHOL (ETHANOL) 0.003 % (0.000-0.010); GLOMERULAR FILTRATION RATE > 60.0 (>60); GLUCOSE, FASTING 81 MG/DL (70-100); POTASSIUM SERUM 4.3 MEQ/L (3.5-5.1); SALICYLATE LEVEL < 1.7 MG/DL (5.0-30.0); SODIUM LEVEL 140 MEQ/L (136-145); TOTAL PROTEIN 7.5 GM/DL (6.4-8.2)
[2019-08-12] MEDS ORDERED: ALPRAZolam 0.5 MG TAB PO ONE (20:15)
[2019-08-13] MEDS ORDERED: IBUPROFEN 600 MG TAB PO ONE (12:30)
[2019-08-13] MEDS ORDERED: ACETAMINOPHEN 500 MG TAB PO ONE (19:30)
[2019-08-13] MEDS ORDERED: NICOTINE 21MG/24HR 1 EA TRANSDERMAL TD ONE (20:30)
[2019-08-13] MEDS ORDERED: ALPRAZolam 0.5 MG TAB PO ONE (20:30)
--- NOTE | 2019-08-13 20:34 | ECGEPIP ---
[facility] - ED Test Date: 2019-08-12 Pat Name: LIV RAINES Department: Room: - Gender: Female Rod Pointer: ct : 1985 Requested By: LISA LAURA Order Number: [id number] Reading MD: Tamiko Crooks Measurements Intervals [place] Rate: 92 P: 57 ME: 134 QRS: 22 QRSD: 85 T: 29 QT: 362 QTc: 450 Interpretive Statements SINUS RHYTHM DECREASED RATE 04/20/18 Electronically Signed on 08-13-2019 20:34:38 EST by Tamiko Crooks
[2019-08-14] MEDS ORDERED: IBUPROFEN 600 MG TAB PO ONE (05:45)
[2019-08-14] MEDS ORDERED: LORazepam 1 MG TAB PO STA (10:43)
[2019-08-14] MEDS ORDERED: ACETAMINOPHEN TAB 650MG DOSE (2X325MG) PO PRN (13:00)
[2019-08-14] MEDS ORDERED: MOM 30ML SUSPENSION UDC PO PRN (13:00)
[2019-08-14] MEDS ORDERED: diphenhydrAMINE 25 MG CAP PO PRN (13:00)
[2019-08-14] MEDS: NICOTINE 21MG/24HR 1 EA TRANSDERMAL TD SCH (13:58)
[2019-08-14] MEDS ORDERED: BACTRIM 160MG/800MG DS TAB PO ONE (14:15)
[2019-08-14 14:30] VITALS: BP 139/83
--- NOTE | 2019-08-14 15:53 | HPEPDOC ---
General Date of Admission Aug 14, 2019 at 12:53 Date of Service: Aug 14, 2019 Chief Complaint The patient is a 33-year-old female admitted with a reason for visit of Depression. Source: Patient Exam Limitations: No limitations Timing/Duration: Other Severity: Other (morning) Associated Symptoms: Other History of Present Illness This is 33 years old female with past medical history of depression, PTSD, bipolar disorder, polysubstance abuse. 7. Deviated nasal septum and no tonsillar hypertrophy. Cervical intraepithelial neoplasm and3 has been very depressed and suicidal since a.m. As per patient, she also took amphetamine this morning and was admitted to inpatient psych unit with suicidal ideations. We were called in for medical management. Patient is asymptomatic medically offers no complaint of chest pain, shortness of breath, nausea, vomiting, diarrhea, etc. Home Medications No Active Prescriptions or Reported Meds Allergies Coded Allergies: ketorolac (Verified Adverse Reaction, Mild, numbness tingling, restless legs, 08/13/19) HAS TAKEN IBUPROFEN IN THE PAST Past Medical History Medical History Depression, PTSD, bipolar disorder, polysubstance abuse DNS adenotonsillar hypertrophy, cervical intraepithelial neoplasia Surgical History Tonsillectomy, adenectomy, loop electrosurgical excision procedure endoscopy, septoplasty, bilateral endoscopy maxillary antrostomy with polyp removal, bilateral endoscopy. Anterior ethmoidectomy, bilateral endoscopy at front of sinusectomy and dissection of left didier bullosa Social History * Smoker: current smoker Alcohol: Denies Drugs: marijuana, other (. Phentermine) A-FIB/CHADSVASC A-FIB History Current/History of A-Fib/PAF?: No Review of Systems Constitutional: Denies: Chills, Fever, Malaise, Night Sweats, Weakness, Fatigue, Weight Loss, Lethargy, Other Eyes: Denies: Pain, Vision change, Conjunctivae inflammation, Eyelid inflammation, Redness, Other ENT: Denies: Head Aches, Ear Pain, Dysphagia, Sinus Congestion, Post Nasal Drip, Sore Throat, Epistaxis, Other Symptoms Skin: Denies: Rash, Lesions, Jaundice, Bruising, Itching, Dry, Breakdown, Nail Changes, Other Pulmonary: Denies: Dyspnea, Cough, Pleuritic Chest Pain, Other Symptoms Cardiovascular: Denies: Chest Pain, Palpitations, Orthopnea, Paroxysmal Noc. Dyspnea, Edema, Lt Headedness, Other Symptoms Gastrointestinal: Denies: Nausea, Vomiting, Abdominal Pain, Diarrhea, Constipation, Melena, Hematochezia, Other Symptoms Genitourinary: Denies: Dysuria, Frequency, Incontinence, Hematuria, Retention, Other Symptoms Hematologic: Denies: Bruising, Bleeding Excessively, Petecchia, Purpura, Enlarged Lymph Nodes, Other Hematologic Endocrine: Denies: Polydipsia, Polyphagia, Polyuria, Heat Intolerance, Cold Intolerance, Other Endocrine Sx Musculoskeletal: Denies: Neck Pain, Back Pain, Shoulder Pain, Arm Pain, Hand Pain, Leg Pain, Foot Pain, Joint Pain, Muscle Pain, Spasms, Other Symptoms Neurological: Denies: Weakness, Numbness, Incoordination, Change in speech, Confusion, Seizures, Other Symptoms Psych: Reports: Depression Physical Examination General Exam: Positive: Alert, Cooperative Eye Exam: Positive: PERRLA, Conjunctiva & lids normal ENT Exam: Positive: Atraumatic, Mucous membr. moist/pink Neck Exam: Positive: Supple Chest Exam: Positive: Clear to auscultation, Normal air movement Heart Exam: Positive: Rate Normal, Normal S1, Normal S2 Abdomen Exam: Positive: Normal bowel sounds, Soft Extremity Exam: Positive: Normal pulses Skin Exam: Positive: Nl turgor and temperature Neuro Exam: Positive: Strength at 5/5 X4 ext, Cranial Nerves 3-12 NL Psych Exam: Positive: Mental status NL, Mood NL, Oriented x 3 Vital Signs Vital Signs Date Time Temp Pulse Resp B/P (MAP) Pulse Ox O2 Delivery O2 Flow Rate FiO2 08/14/19 14:30 96.8 104 18 139/83 (101) 99 Room Air Laboratory Data Labs 24H Laboratory Tests 2 08/14/19 13:07: Urine Color YELLOW, Urine Appearance CLEAR, Urine pH 6.0, Urine Specific [place] 1.023, Urine Protein 1+H, Urine Glucose (UA) NEGATIVE, Urine Ketones NEGATIVE, Urine Blood NEGATIVE, Urine Nitrite NEGATIVE, Urine Bilirubin NEGATIVE, Urine Urobilinogen 0.2, Urine Leukocyte Esterase 3+H, Urine WBC (Auto) 5H, Urine RBC (Auto) 1, Urine Hyaline Casts (Auto) 1, Urine Bacteria (Auto) NEGATIVE, Urine Squamous Epithelial Cells 7, Urine Amorphous Sediment SMALLH, Urine Mucus (Auto) SMALL, Urine Sperm (Auto) Microbiology Microbiology 08/14/19 Urine Culture, Received Pending Problems (1) UTI (urinary tract infection) Status: Acute Problem Text: Patient's UA consistent with 3+ leukocyte esterase and 5 WBC. She might benefit of a 3 day course of Cipro by mouth Will also order urine for cultures Oral hydration (2) Suicidal ideation Status: Acute Problem Text: Patient admitted to inpatient mental health unit for suicidal ideations Group and individual counseling as per psych further management as per psychiatry (3) Substance abuse Status: Acute Problem Text: History of substance abuse Further, as per psych intervention Plan / VTE VTE Prophylaxis Ordered?: No JANAK VILLATORO MD Aug 14, 2019 15:52
[2019-08-14] MEDS: OLANZapine ORAL DISINTEGRATING TAB 5MG PO PRN (18:14)
[2019-08-14] MEDS ORDERED: OLANZapine ORAL DISINTEGRATING TAB 5MG PO PRN (18:30)
[2019-08-14] MEDS: CIPROFLOXACIN 250 MG TAB PO SCH (19:08)
[2019-08-15] MEDS: CIPROFLOXACIN 250 MG TAB PO SCH (06:06)
[2019-08-15 06:59] VITALS: BP 111/65
[2019-08-15] MEDS: NICOTINE 21MG/24HR 1 EA TRANSDERMAL TD SCH (09:00)
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
[2019-08-15] MEDS: OLANZapine ORAL DISINTEGRATING TAB 5MG PO PRN (11:06)
[2019-08-15] MEDS ORDERED: cloNIDine 0.05MG PER 1/2 TABLET PO PRN (13:30)
[2019-08-15] MEDS ORDERED: cloNIDine 0.05MG PER 1/2 TABLET PO ONE (14:00)
--- NOTE | 2019-08-15 14:49 | MHDSPDOC ---
[facility] Discharge Summary Discharge Summary DATE OF ADMISSION: Aug 14, 2019 at 12:53 DATE OF DISCHARGE: 08/15/19 Please see h/p for full clinical case and dx diagnosis Vital Signs/I&Os Vital Signs Date Time Temp Pulse Resp B/P (MAP) Pulse Ox O2 Delivery O2 Flow Rate FiO2 08/15/19 06:59 97.5 82 14 111/65 (80) 08/14/19 14:30 99 Room Air Laboratory Data Microbiology Microbiology 08/14/19 Urine Culture - Final, Complete Allergies Coded Allergies: ketorolac (Verified Adverse Reaction, Mild, numbness tingling, restless legs, 08/13/19) HAS TAKEN IBUPROFEN IN THE PAST SAGE CHATMAN DO Aug 15, 2019 14:49
[2019-08-15] MEDS ORDERED: NICO21PAT TD (14:51)
[2019-08-15 15:45] VITALS: BP 132/80
== END 2019-08-15 15:40 | disposition home or self-care (01) | DRG 755 ==
LOC: M ED 16:58 → M ED INP 08-14 12:53 → M PSY 08-14 14:23
PROVIDERS: ADMIT Psychiatry & Neurology Addiction Medicine; ATTEND Psychiatry & Neurology Addiction Medicine
DX: F43.12 Post-traumatic stress disorder, chronic (principal); F11.20 Opioid dependence, uncomplicated; F15.20 Other stimulant dependence, uncomplicated; F17.210 Nicotine dependence, cigarettes, uncomplicated; F12.90 Cannabis use, unspecified, uncomplicated; Z81.8 Family history of other mental and behavioral disorders; Z59.0 Homelessness; Z62.810 Personal history of physical and sexual abuse in childhood; K21.9 Gastro-esophageal reflux disease without esophagitis; G43.909 Migraine, unspecified, not intractable, without status migrainosus; Z56.0 Unemployment, unspecified; Z88.8 Allergy status to other drugs, medicaments and biological substances; N39.0 Urinary tract infection, site not specified

== ENCOUNTER 2019-08-16 13:51 | Inpatient (IN) | payer MEDICAID, OTHER ==
[~2019-08-16] VITALS: Ht 160 cm; Wt 82.0 kg
[~2019-08-16 13:51] MED LIST changes: +NICO21PAT TD
[2019-08-16 14:50] LABS: HEMATOCRIT 45.9 % (36.0-47.0); HEMOGLOBIN 14.3 g/dl (12.0-15.5); MEAN CORPUSCULAR HEMOGLOBIN 29.1 pg (27.0-33.0); MEAN CORPUSCULAR HGB CONC 31.2 g/dl (32.0-36.5); MEAN CORPUSCULAR VOLUME 93.5 fl (80.0-96.0); PLATELET COUNT, AUTOMATED 294 10^3/uL (150-450); RED BLOOD COUNT 4.91 10^6/uL (4.00-5.40); WHITE BLOOD COUNT 10.3 10^3/uL (4.0-10.0)
[2019-08-16 15:15] LABS: HCG, SERUM QUALITATIVE NEGATIVE (NEGATIVE)
[2019-08-16 15:20] LABS: AMPHETAMINES LEVEL URINE NEGATIVE (NEGATIVE); BARBITURATES URINE NEGATIVE (NEGATIVE); BENZODIAZEPINES URINE NEGATIVE (NEGATIVE); CANNABINOIDS URINE POSITIVE (NEGATIVE); COCAINE METABOLITE URINE NEGATIVE (NEGATIVE); METHADONE URINE NEGATIVE (NEGATIVE); OPIATES URINE NEGATIVE (NEGATIVE); PHENCYCLIDINE URINE NEGATIVE (NEGATIVE)
[2019-08-16 15:24] LABS: ACETAMINOPHEN LEVEL < 2.0 UG/ML (10.0-30.0); ALBUMIN 3.2 GM/DL (3.2-5.2); ALT/SGPT 18 U/L (12-78); BILIRUBIN,DIRECT < 0.1 MG/DL (0.0-0.2); BILIRUBIN,TOTAL 0.2 MG/DL (0.2-1.0); BLOOD UREA NITROGEN 9 MG/DL (7-18); CALCIUM LEVEL 8.4 MG/DL (8.5-10.1); CARBON DIOXIDE LEVEL 30 MEQ/L (21-32); CHLORIDE LEVEL 105 MEQ/L (98-107); CREATININE FOR GFR 0.67 MG/DL (0.55-1.30); ETHYL ALCOHOL (ETHANOL) 0.003 % (0.000-0.010); GLOMERULAR FILTRATION RATE > 60.0 (>60); GLUCOSE, FASTING 84 MG/DL (70-100); POTASSIUM SERUM 4.9 MEQ/L (3.5-5.1); SALICYLATE LEVEL < 1.7 MG/DL (5.0-30.0); SODIUM LEVEL 140 MEQ/L (136-145); TOTAL PROTEIN 6.5 GM/DL (6.4-8.2)
[2019-08-16] MEDS ORDERED: MOM 30ML SUSPENSION UDC PO PRN (16:45)
[2019-08-16] MEDS ORDERED: MAALOX 30 ML SUSP *UDC PO PRN (16:45)
[2019-08-16] MEDS: haloperidoL 5 MG TAB PO PRN (17:40)
[2019-08-16] MEDS: diphenhydrAMINE 25 MG CAP PO PRN (17:40)
[2019-08-16 17:51] VITALS: BP 125/73
[2019-08-16] MEDS: OLANZapine ORAL DISINTEGRATING TAB 5MG PO PRN (19:15)
[2019-08-16] MEDS: traZODone 50 MG TAB PO PRN (20:06)
[2019-08-17 06:02] VITALS: BP 137/82
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
[2019-08-17] MEDS: OLANZapine ORAL DISINTEGRATING TAB 5MG PO PRN ×2 (09:12→14:15)
[2019-08-17] MEDS: NICOTINE 21MG/24HR 1 EA TRANSDERMAL TD SCH (09:16)
[2019-08-17] MEDS: ACETAMINOPHEN TAB 650MG DOSE (2X325MG) PO PRN (11:45)
[2019-08-17] MEDS: haloperidoL 5 MG TAB PO PRN (11:45)
[2019-08-17 15:43] VITALS: BP 124/76
--- NOTE | 2019-08-17 18:31 | HPE ---
DATE OF ADMISSION: 08/17/2019 TIME SEEN: 06:00 p.m. HISTORY OF PRESENT ILLNESS: Erickson is a 33-year-old woman who has a history of methamphetamine intravenous use. She is currently hospitalized in inpatient psychiatry due to posttraumatic stress disorder which is limiting her functioning in the outside world. She was just admitted there for two days yesterday and discharged and came right back. I am seeing her for medical consultation. She has a past medical history of anxiety, depression, posttraumatic stress disorder (PTSD), migraines for which she has not been on any treatment. She is currently not on any home medications and has not seen a physician in over year. ALLERGIES: Her allergies are to TORADOL. PAST MEDICAL HISTORY: Notable for migraines, anxiety, depression, posttraumatic stress disorder (PTSD), chronic IV methamphetamine use. PAST SURGICAL HISTORY: Notable for tonsillectomy, sinus surgery, loop electrical excision procedure (LEEP) procedure. SOCIAL HISTORY: The patient smokes tobacco. She does not use any alcohol. She is currently unemployed. FAMILY HISTORY: Relevant for migraines, high blood pressure. PHYSICAL EXAMINATION: The patient's temperature is 98.2, pulse is 110, respiratory rate is 19, oxygen saturation is 100% on room air. In general, the patient is alert and oriented times three. She is agitated. She appears older than her stated age. Her head atraumatic. Pupils are symmetric and reactive to light. Oropharynx is clear without exudate, erythema, or thrush. No oral lesions are appreciated. Oral mucosa is moist. Tympanic membranes are visualized bilaterally without any signs of infection or masses. Her neck is supple. No thyroid gland tenderness. Lungs sounds are appreciated without rales, wheezes or rhonchi. Heart is S1, S2. No murmurs, rubs, or gallops. Abdomen is soft, nontender, nondistended with active bowel sounds. Her abdomen is protuberant. Extremities are without any significant cyanosis, clubbing or edema. Neurologic: Cranial nerves II-XII appear to be grossly intact. Her gait is preserved. RELEVANT LABORATORY DATA: White count is 10.3, hemoglobin is 14.3, hematocrit 45.9, platelet count of 294. Sodium 140, potassium 4.9, chloride 105, bicarbonate 30, BUN is 9, glucose 84, TSH is 0.7. Urine hCG was negative. Urine drug screen was positive for cannabinoids, negative for salicylates, Tylenol as well as alcohol. No imaging studies available. IMPRESSION: 1. Normal physical examination. 2. Anxiety and depression. 3. Posttraumatic stress disorder (PTSD). 4. History of migraines. My recommendations are the following. The patient is medically stable. Please continue with your psychiatric treatment. Should any issues, please feel free to contact me.
[2019-08-17 19:05] VITALS: BP 137/94
[2019-08-17] MEDS: cloNIDine 0.05MG PER 1/2 TABLET PO PRN (19:05)
[2019-08-17] MEDS: traZODone 50 MG TAB PO PRN (20:11)
[2019-08-17] MEDS: PRAZOSIN 1 MG CAP PO SCH (20:59)
[2019-08-17] MEDS: diphenhydrAMINE 25 MG CAP PO PRN (22:20)
[2019-08-18 06:14] VITALS: BP 132/90
[2019-08-18] MEDS: NICOTINE 21MG/24HR 1 EA TRANSDERMAL TD SCH (09:15)
[2019-08-18] MEDS: OLANZapine ORAL DISINTEGRATING TAB 5MG PO PRN ×2 (12:08→20:09)
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
[2019-08-18] MEDS: haloperidoL 5 MG TAB PO PRN (16:03)
[2019-08-18 16:44] VITALS: BP 122/89
[2019-08-18] MEDS ORDERED: VENLAFAXINE **XR** 37.5 MG CAPSULE PO ONE (19:15)
[2019-08-18] MEDS: zolPIDEM TARTRATE 5 MG TAB PO PRN (20:08)
[2019-08-18] MEDS: PRAMIPEXOLE (MIRAPEX) 0.125 MG TAB PO SCH (20:45)
[2019-08-18] MEDS: PRAZOSIN 1 MG CAP PO SCH (20:46)
[2019-08-19 06:00] VITALS: BP 141/76
[2019-08-19] MEDS: NICOTINE 21MG/24HR 1 EA TRANSDERMAL TD SCH (08:41)
[2019-08-19] MEDS: ACETAMINOPHEN TAB 650MG DOSE (2X325MG) PO PRN (12:13)
[2019-08-19] MEDS: OLANZapine ORAL DISINTEGRATING TAB 5MG PO PRN ×2 (12:13→17:26)
[2019-08-19 16:07] VITALS: BP 138/90
[2019-08-19] MEDS: haloperidoL 5 MG TAB PO PRN (16:36)
[2019-08-19] MEDS: diphenhydrAMINE 25 MG CAP PO PRN (16:36)
[2019-08-19] MEDS: cloNIDine 0.05MG PER 1/2 TABLET PO PRN (18:50)
[2019-08-19] MEDS: VENLAFAXINE **XR** 37.5 MG CAPSULE PO SCH (20:25)
[2019-08-19] MEDS: PRAMIPEXOLE (MIRAPEX) 0.125 MG TAB PO SCH (20:26)
[2019-08-19] MEDS: zolPIDEM TARTRATE 5 MG TAB PO PRN (20:26)
[2019-08-19] MEDS: PRAZOSIN 1 MG CAP PO SCH (20:54)
--- NOTE | 2019-08-19 21:19 | MHIPNPDOC ---
[facility] Progress Note Progress Note DATE OF SERVICE: 08/19/19 HISTORY: As per previous notes: "Chief Complaint "I'm back and no one's helping me". History of Present Illness The patient is a 33-year-old woman with a significant history of methamphetamine use disorder presents again to [facility] claiming suicidality with the plan to overdose. She is admitted on a 9.13 legal status and subsequently became fairly agitated the previous evening as her roommate is quite psychotic and was flipping the lights on and off. She reported continued PTSD symptoms and moodiness secondary to her withdrawal. She has met with briefly where she was really upset however she was offered some clonidine but she appeared to be more amenable. She is still quite irritated and quite distrusting of the treatment team. She continues to report that she wishes to go to rehab and has spent the majority of today's sleeping in her room." VITAL SIGNS: See below. NEW TEST RESULTS: See below CURRENT MEDICATIONS: See below. MENTAL STATUS EXAMINATION: Patient is a 33-year old female, who is dressed in hospital clothes. Speech: Is rapid, pressured. Language skills are intact. Thought processes including: illogical, linear. Thought content: focused on being discharged, depressive thought, anxious thoughts. She denies paranoid delusions Abstract reasoning, and computation: not assessed at this time Description of associations: intact Description of abnormal or psychotic thoughts: she denies thought delusions, denies TAV hallucinations, she reports feeling helpless. Judgment: Poor Insight: Poor. Orientation: x 3. Recent and remote memory: fair Attention span and concentration: easily distracted. Fund of knowledge: adequate Mood: anxious, depressed. Affect: labile, anxious, depressed, mildly irritable DIAGNOSES: PTSD Methamphetamine use disorder Tobacco use disorder Opioid use disorder Cannabis use disorder. ASSESSMENT: The patient is very anxious and labile, she is going through withdrawals, she says she feels fine but her mood is unstable. She wants to be discharged, possibly because she has cravings and she wants to use methamphetamines again. MANAGEMENT PLAN: As per Dr. Gupta TIME SPENT: 15 minutes. Vital Signs Vital Signs Date Time Temp Pulse Resp B/P (MAP) Pulse Ox O2 Delivery O2 Flow Rate FiO2 08/19/19 16:07 97.7 105 20 138/90 (106) 08/16/19 17:51 100 Room Air Current Medications Current Medications Medications (Trade) Dose Ordered Sig/Brianna Route PRN Reason Start Time Stop Time Status Last Admin Dose Admin Acetaminophen (Tylenol Tab) 650 mg Q6HP PRN PO HEADACHE or DISCOMFORT 08/16/19 16:45 08/19/19 12:13 Al Hydrox/Mg Hydrox/Simethicone (Mylanta) 30 ml Q4HP PRN PO HEARTBURN/INDIGESTION 08/16/19 16:45 Clonidine HCl (Catapres) 0.05 mg TIDP PRN PO ANXIETY 08/17/19 18:30 08/17/19 19:05 Diphenhydramine HCl (Benadryl) 25 mg Q6HP PRN PO ANXIETY/AGITATION 08/16/19 16:45 08/19/19 16:36 Haloperidol (Haldol) 5 mg Q6HP PRN PO ANXIETY/AGITATION 08/16/19 16:45 08/19/19 16:36 Magnesium Hydroxide (Milk Of Magnesia) 30 ml DAILYPRN PRN PO CONSTIPATION 08/16/19 16:45 Nicotine (Nicoderm Cq 21mg) 1 patch DAILY TD 08/17/19 09:00 08/19/19 08:41 Olanzapine (ZyPREXA ZYDIS) 10 mg Q4HP PRN PO ANXIETY/AGITATION 08/16/19 19:15 08/19/19 12:13 Pramipexole Dihydrochloride (Mirapex) 0.125 mg QHS PO 08/18/19 21:00 08/18/19 20:45 Prazosin HCl (Minipress) 1 mg QHS PO 08/17/19 21:00 08/17/19 20:59 Trazodone HCl (Desyrel) 50 mg QHSP PRN PO INSOMNIA 08/16/19 16:45 08/17/19 20:11 Venlafaxine HCl (Effexor Xr) 37.5 mg QHS PO 08/19/19 21:00 Zolpidem Tartrate (Ambien) 5 mg QHSP PRN PO sleep 08/18/19 19:15 08/18/19 20:08 Allergies Coded Allergies: ketorolac (Verified Adverse Reaction, Mild, numbness tingling, restless legs, 1/12/20) HAS TAKEN IBUPROFEN IN THE PAST RIGO GAMINO MD Aug 19, 2019 16:52
[2019-08-20 06:14] VITALS: BP 129/83
[2019-08-20] MEDS: ACETAMINOPHEN TAB 650MG DOSE (2X325MG) PO PRN (07:13)
[2019-08-20] MEDS: OLANZapine ORAL DISINTEGRATING TAB 5MG PO PRN ×2 (07:14→19:00)
[2019-08-20] MEDS: NICOTINE 21MG/24HR 1 EA TRANSDERMAL TD SCH (08:54)
--- NOTE | 2019-08-20 12:47 | MHIPNPDOC ---
[facility] Progress Note Progress Note DATE OF SERVICE: 08/20/19 HISTORY: As per previous notes: "Chief Complaint "I'm back and no one's helping me". History of Present Illness The patient is a 33-year-old woman with a significant history of methamphetamine use disorder presents again to [facility] claiming suicidality with the plan to overdose. She is admitted on a 9.13 legal status and subsequently became fairly agitated the previous evening as her roommate is quite psychotic and was flipping the lights on and off. She reported continued PTSD symptoms and moodiness secondary to her withdrawal. She has met with briefly where she was really upset however she was offered some clonidine but she appeared to be more amenable. She is still quite irritated and quite distrusting of the treatment team. She continues to report that she wishes to go to rehab and has spent the majority of today's sleeping in her room." VITAL SIGNS: See below. NEW TEST RESULTS: See below CURRENT MEDICATIONS: See below. MENTAL STATUS EXAMINATION: Patient is a 33-year old female, who is dressed in hospital clothes, sleeping in her bedroom Speech: not able to asses, she was sleeping Language skills not able to assess, she was sleeping Thought processes including: unable to assess, she was sleeping Thought content: unable to assess, she was sleeping Abstract reasoning, and computation: unable to assess, she was sleeping Description of associations: unable to assess, she was sleeping Description of abnormal or psychotic thoughts: unable to assess, she was sleeping Judgment: unable to assess, she was sleeping Insight: unable to assess, she was sleeping Orientation: unable to assess, she was sleeping Recent and remote memory: unable to assess, she was sleeping Attention span and concentration: unable to assess, she was sleeping Fund of knowledge: unable to assess, she was sleeping Mood: unable to assess, she was sleeping Affect: unable to assess, she was sleeping DIAGNOSES: PTSD Methamphetamine use disorder Tobacco use disorder Opioid use disorder Cannabis use disorder. ASSESSMENT: The patient was sleeping when I went to see her. I didn't want to wake her up because she has been very anxious and she has not been sleeping very well. yesterday she was requesting to be discharged and she said it was not because she had cravings, it was mostly because she felt being at [facility] was not helpful for her. This morning she said to the Nurses exactly the same thing and she said she wanted to be discharged. She was very irritable when her Nurse assessed her. She took her Olanzapine 10 mgs PO today at 7:36 in the morning and has not taken other medications. It could be that taken this medication would have resulted in tiredness and sleepiness. she needs to sleep. Staff is closely monitoring her and assessing her for suicide but she denied SI yesterday to me and she has denied SI/plan or intent to staff members. MANAGEMENT PLAN: As per Dr. Gupta TIME SPENT: 5 minutes. Vital Signs Vital Signs Date Time Temp Pulse Resp B/P (MAP) Pulse Ox O2 Delivery O2 Flow Rate FiO2 08/20/19 10:26 Room Air 08/20/19 06:14 98.0 72 16 129/83 (98) 08/16/19 17:51 100 Current Medications Current Medications Medications (Trade) Dose Ordered Sig/Brianna Route PRN Reason Start Time Stop Time Status Last Admin Dose Admin Acetaminophen (Tylenol Tab) 650 mg Q6HP PRN PO HEADACHE or DISCOMFORT 08/16/19 16:45 08/20/19 07:13 Al Hydrox/Mg Hydrox/Simethicone (Mylanta) 30 ml Q4HP PRN PO HEARTBURN/INDIGESTION 08/16/19 16:45 Clonidine HCl (Catapres) 0.05 mg TIDP PRN PO ANXIETY 08/17/19 18:30 08/19/19 18:50 Diphenhydramine HCl (Benadryl) 25 mg Q6HP PRN PO ANXIETY/AGITATION 08/16/19 16:45 08/19/19 16:36 Haloperidol (Haldol) 5 mg Q6HP PRN PO ANXIETY/AGITATION 08/16/19 16:45 08/19/19 16:36 Magnesium Hydroxide (Milk Of Magnesia) 30 ml DAILYPRN PRN PO CONSTIPATION 08/16/19 16:45 Nicotine (Nicoderm Cq 21mg) 1 patch DAILY TD 08/17/19 09:00 08/19/19 08:41 Olanzapine (ZyPREXA ZYDIS) 10 mg Q4HP PRN PO ANXIETY/AGITATION 08/16/19 19:15 08/20/19 07:14 Pramipexole Dihydrochloride (Mirapex) 0.125 mg QHS PO 08/18/19 21:00 08/19/19 20:26 Prazosin HCl (Minipress) 1 mg QHS PO 08/17/19 21:00 08/19/19 20:54 Trazodone HCl (Desyrel) 50 mg QHSP PRN PO INSOMNIA 08/16/19 16:45 08/17/19 20:11 Venlafaxine HCl (Effexor Xr) 37.5 mg QHS PO 08/19/19 21:00 08/19/19 20:25 Zolpidem Tartrate (Ambien) 5 mg QHSP PRN PO sleep 08/18/19 19:15 08/19/19 20:26 Allergies Coded Allergies: ketorolac (Verified Adverse Reaction, Mild, numbness tingling, restless legs, 08/13/19) HAS TAKEN IBUPROFEN IN THE PAST RIGO GAMINO MD Aug 20, 2019 12:47
[2019-08-20] MEDS: diphenhydrAMINE 25 MG CAP PO PRN (16:53)
[2019-08-20] MEDS: haloperidoL 5 MG TAB PO PRN (16:54)
[2019-08-20 19:00] VITALS: BP 130/84
[2019-08-20 20:50] VITALS: BP 118/74
[2019-08-20] MEDS: PRAZOSIN 1 MG CAP PO SCH (20:50)
[2019-08-20] MEDS: zolPIDEM TARTRATE 5 MG TAB PO PRN (20:50)
[2019-08-20] MEDS: VENLAFAXINE **XR** 37.5 MG CAPSULE PO SCH (20:50)
[2019-08-20] MEDS: PRAMIPEXOLE (MIRAPEX) 0.125 MG TAB PO SCH (20:51)
[2019-08-20] MEDS: traZODone 50 MG TAB PO PRN (20:51)
[2019-08-21 06:21] VITALS: BP 125/56
[2019-08-21] MEDS: NICOTINE 21MG/24HR 1 EA TRANSDERMAL TD SCH (08:37)
[2019-08-21] MEDS: haloperidoL 5 MG TAB PO PRN (08:37)
--- NOTE | 2019-08-21 10:22 | MHDSPDOC ---
[facility] Discharge Summary Discharge Summary DATE OF ADMISSION: Aug 16, 2019 at 16:41 DATE OF DISCHARGE: 08/21/19 Discharge Erickson Villar MRN: N/A Date of : N/A Date of Service: 08/21/2019 Diagnoses PTSD, chronic versus acute. Methamphetamine use disorder, severe. Tobacco use disorder, moderate. Opioid use disorder, severe, in remission. Cannabis use disorder, unspecified. History of Present Illness The patient is a 33-year-old woman with a significant history of methamphetamine use disorder presents again to [facility] claiming suicidality with the plan to overdose. She is admitted on a 9.13 legal status and subsequently became fairly agitated the previous evening as her roommate is quite psychotic and was flipping the lights on and off. She reported continued PTSD symptoms and moodiness secondary to her withdrawal. She has met with briefly where she was really upset however she was offered some clonidine but she appeared to be more amenable. She is still quite irritated and quite distrusting of the treatment team. She continues to report that she wishes to go to rehab and has spent the majority of today's sleeping in her room. Consultants Involved Hospitalist/PCP screening Treatment and Progress On The Unit She was admitted to the inpatient unit on a voluntary status after she had recently requested discharge. The patient was met with and she was slightly more amenable. She was started on Effexor 37.5 extended-release in order to treat her PTSD. She was treated with a small dose of Ambien for sleep as she noticed that she was not able to sleep with the trazodone especially after withdrawing from methamphetamine. Additionally, she had significant restless legs and was started on 0.125 mg of pramipexole with positive results. The patient was additionally started on Minipress 1 mg nightly and tolerated the large combination quite well with good sleep and improved mood. She was much less irritable and became much less problematic on the unit. After a weekend, the patient reported that she was feeling much better and wanted to wait at home for a bed in a rehab as she reported that she felt the milieu was "not helpful" for her, however, she was doing much improved and appeared to be doing well. Discharge Assessment 33-year-old woman with a significant history of substance use and PTSD, who presents an acute withdrawal from methamphetamine and PTSD symptoms. She was started on low-dose Effexor with supportive treatment where she does well. On the day of discharge, she denies any suicidal or homicidal ideation. She has done so throughout her admission. She has a normal mental status exam, is calm and cooperative with our discharge process and declines further voluntary admission and thus must be discharged to [facility]. Mental Status Examination General: Well dressed with good hygiene Speech: Spontaneous and fluid Thought processes: Linear and logical MSK: Smooth and coordinated gait, no signs of tremors or involuntary orofacial movements Thought content: Future orientated Abstract reasoning, and computation: Intact Description of associations: Intact Description of abnormal or psychotic thoughts: Denies any suicidal or homicidal ideation. Denies any auditory or visual hallucinations. Does not appear to be responding to internal stimuli. Does not appear to be endorsing any bizarre or paranoid ideation. Judgment: fair Insight: fair Orientation: Alert and orientated 3 Cognition: Grossly normal Recent and remote memory: Intact Attention span and concentration: Intact Fund of knowledge: Adequate Mood: "okay" Affect: Euthymic with a full range Follow Up The social work team worked during the predischarge meeting in order to evaluate for further issues of lethality address them fully before discharge. They worked on safety planning with the patient's family members in order to ensure that the patient will have a safe and effective discharge. Time Spent The amount of time spent in the coordination of care for this patient was approximately 60 minutes. Wednesday Vital Signs/I&Os Vital Signs Date Time Temp Pulse Resp B/P (MAP) Pulse Ox O2 Delivery O2 Flow Rate FiO2 08/21/19 06:21 97.2 75 16 125/56 (79) 08/20/19 10:26 Room Air 08/16/19 17:51 100 Medications Scheduled Nicotine (Nicotine Patch) 21 Mg Patch.td24, 1 PATCH TD DAILY for tobacco for 30 Days, #30 Pramipexole Di-HCl (Mirapex) 0.125 Mg Tablet, 0.125 MG PO QHS for rls for 7 Days, #7 Prazosin HCl (Minipress) 1 Mg Capsule, 1 MG PO QHS for nightmares for 7 Days, #7 Venlafaxine HCl (Venlafaxine HCl ER) 37.5 Mg Cap.er.24h, 37.5 MG PO QHS for mood for 7 Days, #7 Scheduled PRN Trazodone HCl (Trazodone HCl) 50 Mg Tablet, 50 MG PO QHSP PRN for INSOMNIA for 7 Days, #7 Zolpidem Tartrate (Ambien) 5 Mg Tablet, 5 MG PO QHSP PRN for sleep for 14 Days, #14 Zolpidem Tartrate (Ambien) 5 Mg Tablet, 1 TAB PO QPMP PRN for sleep for 14 Days, #14 Allergies Coded Allergies: ketorolac (Verified Adverse Reaction, Mild, numbness tingling, restless legs, 08/13/19) HAS TAKEN IBUPROFEN IN THE PAST SAGE CHATMAN DO Aug 21, 2019 10:22
[2019-08-21] MEDS ORDERED: MIRA0.12 PO (10:31)
[2019-08-21] MEDS ORDERED: AMBI5TAB PO ×2 (10:31)
[2019-08-21] MEDS ORDERED: MINI1CAP PO (10:31)
[2019-08-21] MEDS ORDERED: VENL37.598 PO (10:31)
[2019-08-21] MEDS ORDERED: TRAZ-252 PO (10:31)
[2019-08-21] MEDS ORDERED: NICO21PAT TD (10:31)
[2019-08-21] MEDS: OLANZapine ORAL DISINTEGRATING TAB 5MG PO PRN (11:31)
== END 2019-08-21 12:10 | disposition home or self-care (01) | DRG 755 ==
LOC: M ED 13:51 → M ED INP 16:41 → M PSY 17:17
PROVIDERS: ADMIT Psychiatry & Neurology Addiction Medicine; ATTEND Psychiatry & Neurology Addiction Medicine
DX: F43.11 Post-traumatic stress disorder, acute (principal); F17.200 Nicotine dependence, unspecified, uncomplicated; F11.90 Opioid use, unspecified, uncomplicated; F12.90 Cannabis use, unspecified, uncomplicated; F15.90 Other stimulant use, unspecified, uncomplicated; Z79.899 Other long term (current) drug therapy; Z88.8 Allergy status to other drugs, medicaments and biological substances; G43.909 Migraine, unspecified, not intractable, without status migrainosus; F43.12 Post-traumatic stress disorder, chronic

== ENCOUNTER 2019-09-27 13:28 | Emergency (ER) | payer MEDICAID, OTHER ==
[~2019-09-27] VITALS: Ht 160 cm; Wt 86.9 kg
[~2019-09-27 13:28] MED LIST changes: +AMBI5TAB PO; +MIRA0.12 PO; +TRAZ-252 PO; +VENL37.598 PO
[2019-09-27] MEDS ORDERED: IBUPROFEN 600 MG TAB PO ONE (15:15)
[2019-09-27 16:06] LABS: INFLUENZA A AMPLIFICATION NEGATIVE (NEGATIVE); INFLUENZA B AMPLIFICATION POSITIVE (NEGATIVE)
[2019-09-27] MEDS ORDERED: OSELTAMIVIR PHOSPHATE 75 MG CAP (TAMIFLU) PO ONE (16:15)
[2019-09-27] MEDS ORDERED: OSEL75CA PO (16:16)
[2019-09-27 16:18] LABS: MONO REFLEX EBV COMP NEGATIVE (NEGATIVE)
[2019-09-27 16:30] VITALS: BP 116/74
[2019-09-29 14:09] LABS: EBV AB TO NUCLEAR ANTIGEN <18.0 U/mL (0.0-17.9); EBV VIRAL CAPSID AG IgM <36.0 U/mL (0.0-35.9)
== END 2019-09-27 16:31 | disposition home or self-care (01) ==
LOC: M ED 13:28
DX: J10.1 Influenza due to other identified influenza virus with other respiratory manifestations (principal); I10 Essential (primary) hypertension; K21.9 Gastro-esophageal reflux disease without esophagitis; F31.9 Bipolar disorder, unspecified; F43.10 Post-traumatic stress disorder, unspecified; F19.10 Other psychoactive substance abuse, uncomplicated; F17.210 Nicotine dependence, cigarettes, uncomplicated; Z88.6 Allergy status to analgesic agent; Z79.83 Long term (current) use of bisphosphonates; Z79.899 Other long term (current) drug therapy

== ENCOUNTER → 2020-08-12 | Outpatient (CLI) | payer SELFPAY ==
[~2020-08-12] MED LIST changes: +AMLO1TAB24 PO; -AMLO5TAB6 PO; -MAPA325T2 PO; +MAPA325T8 PO; +OSEL75CA PO; +PANT40TA29 PO; -PANT40TA3 PO
== END ==
LOC: M LABSMTC 09:45
PROVIDERS: ATTEND Pediatrics
DX: Z20.822 Contact with and (suspected) exposure to COVID-19 (principal)

== ENCOUNTER → 2020-10-08 | Outpatient (REF) | payer OTHER ==
[~2020-10-08] MED LIST changes: +GABA-282 PO; -GABA-843 PO
[2020-10-08 17:48] LABS: ALBUMIN 3.7 GM/DL (3.2-5.2); ALT/SGPT 23 U/L (12-78); BILIRUBIN,TOTAL 0.1 MG/DL (0.2-1.0); BLOOD UREA NITROGEN 14 MG/DL (7-18); CALCIUM LEVEL 8.8 MG/DL (8.5-10.1); CARBON DIOXIDE LEVEL 31 MEQ/L (21-32); CHLORIDE LEVEL 105 MEQ/L (98-107); CHOLESTEROL LEVEL 156 MG/DL (<200); CHOLESTEROL RISK RATIO 2.644 (<5); CREATININE FOR GFR 0.66 MG/DL (0.55-1.30); GLOMERULAR FILTRATION RATE > 60.0 (>60); GLUCOSE, FASTING 88 MG/DL (70-100); HDL CHOLESTEROL 59 MG/DL (>40); LDL CHOLESTEROL 83 MG/DL (<100); NON-HDL-C 97 MG/DL; POTASSIUM SERUM 5.3 MEQ/L (3.5-5.1); SODIUM LEVEL 139 MEQ/L (136-145); TOTAL 25(OH) VITAMIN D 21.1 NG/ML (30.0-100.0); TOTAL PROTEIN 6.9 GM/DL (6.4-8.2); TRIGLYCERIDES LEVEL 68 MG/DL (<150)
[2020-10-09 06:31] LABS: HEMOGLOBIN A1c 5.2 %
== END ==
LOC: M LAB REF 16:01
PROVIDERS: ATTEND Physician Assistant
DX: Z13.220 Encounter for screening for lipoid disorders (principal); E55.9 Vitamin D deficiency, unspecified; Z13.228 Encounter for screening for other metabolic disorders

== ENCOUNTER → 2021-01-25 | Outpatient (CLI) | payer OTHER ==
[~2021-01-25] MED LIST changes: +OMEP40CA4 PO; -OMEP40CA97 PO
--- NOTE | 2021-01-25 13:46 | REP ---
INDICATION: COUGH COMPARISON: 04/20/2018 TECHNIQUE: PA and lateral. FINDINGS: The mediastinum and cardiac silhouette are normal. The lung estrada are clear and without acute consolidation, effusion, or pneumothorax. The skeletal structures are intact and normal. IMPRESSION: No acute cardiopulmonary process. <Electronically signed by Abdias Orosco > 01/25/21 1339
== END ==
LOC: M RAD 13:18
PROVIDERS: ATTEND Pediatrics
DX: R05 Cough (principal)

== ENCOUNTER 2021-03-15 23:46 | Emergency (ER) | payer OTHER ==
[~2021-03-15] VITALS: Ht 160 cm; Wt 104.4 kg
[2021-03-15 23:47] VITALS: BP 131/75
== END 2021-03-16 01:13 | disposition left against medical advice (07) ==
LOC: M ED 23:46
DX: Z53.21 Procedure and treatment not carried out due to patient leaving prior to being seen by health care provider (principal)

== ENCOUNTER 2021-11-25 06:47 | Emergency (ER) | payer OTHER ==
[~2021-11-25] VITALS: Ht 160 cm; Wt 90.9 kg
[2021-11-25] MEDS ORDERED: CITA40TA7 PO (07:02)
[2021-11-25] MEDS ORDERED: BUSP10TA PO (07:02)
[2021-11-25] MEDS ORDERED: NS 1,000 ML IV ONE ×2 (08:00→12:10)
[2021-11-25] MEDS ORDERED: MORPHINE 4 MG/ML 1ML VIAL/SYRINGE IV ONE (08:00)
[2021-11-25] MEDS ORDERED: ONDANSETRON 4MG/2ML VIAL IV ONE (08:00)
[2021-11-25 08:44] LABS: BASO % 0.3 % (0.0-1.0); EOS # 0.5 10^3/uL (0.0-0.5); EOS % 5.1 % (0.0-3.0); HEMATOCRIT 40.2 % (36.0-47.0); HEMOGLOBIN 13.1 g/dl (12.0-15.5); LYMPH # 2.1 10^3/uL (1.5-5.0); LYMPH % 22.6 % (24.0-44.0); MEAN CORPUSCULAR HEMOGLOBIN 30.3 pg (27.0-33.0); MEAN CORPUSCULAR HGB CONC 32.6 g/dl (32.0-36.5); MEAN CORPUSCULAR VOLUME 92.8 fl (80.0-96.0); MONO # 0.8 10^3/uL (0.0-0.8); MONO % 8.3 % (2.0-8.0); NEUTROPHILS # 5.9 10^3/uL (1.5-8.5); NEUTROPHILS % 63.5 % (36.0-66.0); PLATELET COUNT, AUTOMATED 302 10^3/uL (150-450); RED BLOOD COUNT 4.33 10^6/uL (4.00-5.40); WHITE BLOOD COUNT 9.3 10^3/uL (4.0-10.0)
[2021-11-25 09:20] LABS: APPEARANCE, URINE HAZY (CLEAR); BACTERIA, URINE AUTO 1+ (NEGATIVE); BILIRUBIN, URINE AUTO NEGATIVE (NEGATIVE); BLOOD, URINE BLOOD NEGATIVE (NEGATIVE); COLOR, URINE YELLOW (YELLOW); GLUCOSE, URINE (UA) AUTO NEGATIVE (NEGATIVE); KETONE, URINE AUTO NEGATIVE (NEGATIVE); LEUKOCYTE ESTERASE, URINE AUTO NEGATIVE (NEGATIVE); MUCUS, URINE MODERATE (NEGATIVE); NITRITE, URINE AUTO NEGATIVE (NEGATIVE); PROTEIN, URINE AUTO NEGATIVE (NEGATIVE); RBC, URINE AUTO 0 /HPF (0-3); SPECIFIC GRAVITY URINE AUTO 1.027 (1.002-1.035); SQUAMOUS EPITHELIAL CELL UR AU 2 /HPF (0-6); UROBILINOGEN, URINE AUTO 0.2 mg/dL (0.0-2.0); WBC, URINE AUTO 1 /HPF (0-3)
[2021-11-25 09:25] LABS: ALBUMIN 3.3 GM/DL (3.2-5.2); ALT/SGPT 18 U/L (12-78); BILIRUBIN,DIRECT 0.1 MG/DL (0.0-0.2); BILIRUBIN,TOTAL 0.3 MG/DL (0.2-1.0); BLOOD UREA NITROGEN 10 MG/DL (7-18); CARBON DIOXIDE LEVEL 26 MEQ/L (21-32); CHLORIDE LEVEL 110 MEQ/L (98-107); CREATININE FOR GFR 0.54 MG/DL (0.55-1.30); GLOMERULAR FILTRATION RATE > 60.0 (>60); GLUCOSE, FASTING 88 MG/DL (70-100); LIPASE 826 U/L (73-393); POTASSIUM SERUM 4.2 MEQ/L (3.5-5.1); SODIUM LEVEL 142 MEQ/L (136-145); TOTAL PROTEIN 5.9 GM/DL (6.4-8.2)
[2021-11-25] MEDS ORDERED: ISOVUE-370 76% 100ML VIAL As Ordered ONE (10:36)
[2021-11-25] MEDS ORDERED: MORPHINE 2 MG/ML 1ML VIAL IV ONE (10:45)
[2021-11-25] MEDS ORDERED: DICYCLOMINE INJ 20MG/2ML (J0500) IM ONE (12:10)
[2021-11-25] MEDS ORDERED: METOCLOPRAMIDE INJ 10MG/2ML VIAL (J2765 PER 1) IV ONE (12:10)
[2021-11-25] MEDS ORDERED: PANTOPRAZOLE 40MG VIAL IV ONE (12:10)
[2021-11-25] MEDS ORDERED: DICY10CA13 PO (13:07)
[2021-11-25] MEDS ORDERED: ONDA4TAB6 PO (13:07)
[2021-11-25] MEDS ORDERED: PROT1TAB2 PO (13:07)
[2021-11-25 13:17] VITALS: BP 123/66
== END 2021-11-25 13:19 | disposition home or self-care (01) ==
LOC: EDBD 06:47 → M ED 06:47
DX: A08.4 Viral intestinal infection, unspecified (principal); R74.8 Abnormal levels of other serum enzymes; K21.9 Gastro-esophageal reflux disease without esophagitis; F43.10 Post-traumatic stress disorder, unspecified; F19.10 Other psychoactive substance abuse, uncomplicated; F17.200 Nicotine dependence, unspecified, uncomplicated; Z88.8 Allergy status to other drugs, medicaments and biological substances; Z79.899 Other long term (current) drug therapy
CPT/HCPCS: 74177; 80048; 80076; 81001; 83690; 84702; 85025; 87505; 96360; 96372; 96374; 96375; 96376; 99284; C9113; J0500; J2270; J2405; J2765; Q9967

== ENCOUNTER 2021-12-24 15:23 | Emergency (ER) | payer OTHER ==
[~2021-12-24] VITALS: Ht 157.5 cm; Wt 87.3 kg
[~2021-12-24 15:23] MED LIST changes: +CITA40TA7 PO; +DICY10CA13 PO; +ONDA4TAB6 PO; +PROT1TAB2 PO
[2021-12-24 16:26] LABS: HEMATOCRIT 40.5 % (36.0-47.0); MEAN CORPUSCULAR HEMOGLOBIN 30.2 pg (27.0-33.0); MEAN CORPUSCULAR HGB CONC 32.1 g/dl (32.0-36.5); MEAN CORPUSCULAR VOLUME 94.2 fl (80.0-96.0); PLATELET COUNT, AUTOMATED 331 10^3/uL (150-450); WHITE BLOOD COUNT 8.6 10^3/uL (4.0-10.0)
[2021-12-24 16:46] LABS: AMPHETAMINES LEVEL URINE NEGATIVE (NEGATIVE); BARBITURATES URINE NEGATIVE (NEGATIVE); BENZODIAZEPINES URINE NEGATIVE (NEGATIVE); CANNABINOIDS URINE POSITIVE (NEGATIVE); COCAINE METABOLITE URINE NEGATIVE (NEGATIVE); METHADONE URINE NEGATIVE (NEGATIVE); OPIATES URINE NEGATIVE (NEGATIVE); PHENCYCLIDINE URINE NEGATIVE (NEGATIVE)
[2021-12-24 16:58] LABS: HCG, SERUM QUALITATIVE NEGATIVE (NEGATIVE)
[2021-12-24 17:05] LABS: ACETAMINOPHEN LEVEL < 2.0 UG/ML (10.0-30.0); ALBUMIN 3.5 GM/DL (3.2-5.2); ALT/SGPT 16 U/L (12-78); BILIRUBIN,DIRECT < 0.1 MG/DL (0.0-0.2); BILIRUBIN,TOTAL 0.1 MG/DL (0.2-1.0); BLOOD UREA NITROGEN 8 MG/DL (7-18); CALCIUM LEVEL 9.2 MG/DL (8.5-10.1); CARBON DIOXIDE LEVEL 29 MEQ/L (21-32); CHLORIDE LEVEL 110 MEQ/L (98-107); CREATININE FOR GFR 0.64 MG/DL (0.55-1.30); ETHYL ALCOHOL (ETHANOL) < 0.003 % (0.000-0.010); GLOMERULAR FILTRATION RATE > 60.0 (>60); GLUCOSE, FASTING 83 MG/DL (70-100); POTASSIUM SERUM 4.1 MEQ/L (3.5-5.1); SALICYLATE LEVEL 2.2 MG/DL (5.0-30.0); SODIUM LEVEL 144 MEQ/L (136-145); THYROID STIMULATING HORMONE 0.123 uIU/ML (0.358-3.740); TOTAL PROTEIN 6.7 GM/DL (6.4-8.2)
[2021-12-24] MEDS ORDERED: CITA40TA7 PO (21:49)
[2021-12-24] MEDS ORDERED: BUSP10TA PO (21:49)
[2021-12-24] MEDS ORDERED: busPIRone 10 MG TAB PO ONE (21:50)
[2021-12-24 21:54] VITALS: BP 136/78
== END 2021-12-24 22:19 | disposition home or self-care (01) ==
LOC: M ED 15:23
DX: F32.A Depression, unspecified (principal); Z91.51 Personal history of suicidal behavior; F17.200 Nicotine dependence, unspecified, uncomplicated; Z88.8 Allergy status to other drugs, medicaments and biological substances; Z79.899 Other long term (current) drug therapy

== ENCOUNTER 2022-08-18 09:32 | Inpatient (IN) | payer OTHER ==
[~2022-08-18] VITALS: Ht 160 cm; Wt 93.6 kg
[2022-08-18] MEDS ORDERED: NS 250 ML IV ONE (09:45)
[2022-08-18] MEDS: COMBIVENT RESPIMAT 100-20MCG INHALER 4GM INH SCH ×3 (10:12→10:42)
[2022-08-18 10:46] LABS: BASO % 0.3 % (0.0-1.0); EOS # 0.5 10^3/uL (0.0-0.5); EOS % 4.7 % (0.0-3.0); HEMATOCRIT 41.9 % (36.0-47.0); HEMOGLOBIN 13.2 g/dl (12.0-15.5); LYMPH # 2.3 10^3/uL (1.5-5.0); LYMPH % 22.7 % (24.0-44.0); MEAN CORPUSCULAR HEMOGLOBIN 28.1 pg (27.0-33.0); MEAN CORPUSCULAR HGB CONC 31.5 g/dl (32.0-36.5); MEAN CORPUSCULAR VOLUME 89.1 fl (80.0-96.0); MONO # 0.7 10^3/uL (0.0-0.8); MONO % 6.6 % (2.0-8.0); NEUTROPHILS # 6.5 10^3/uL (1.5-8.5); NEUTROPHILS % 65.5 % (36.0-66.0); PLATELET COUNT, AUTOMATED 309 10^3/uL (150-450); WHITE BLOOD COUNT 9.9 10^3/uL (4.0-10.0)
[2022-08-18 10:48] LABS: ABG BASE EXCESS 0.1 (-2.0-2.0); ABG O2 SATURATION 95.3 % (95.0-99.0); ABG PARTIAL PRESSURE CO2 41.4 mmHg (35.0-45.0); ABG PARTIAL PRESSURE O2 79.3 mmHg (75.0-100.0); ABG STANDARD HCO3 24.5 MEQ/L (22.0-26.0); ABG TOTAL CO2 26.2 MEQ/L (22.0-29.0); ABG pH (ARTERIAL) 7.398 UNITS (7.350-7.450)
[2022-08-18 10:58] LABS: INR 0.98; PROTHROMBIN TIME 13.2 SECONDS (12.5-14.5)
[2022-08-18 10:59] LABS: PARTIAL THROMBOPLASTIN TIME 33.1 SECONDS (24.8-34.2)
[2022-08-18 11:15] LABS: C REACTIVE PROTEIN QUANTITATIV < 0.40 MG/DL (<1.0); LDH LACTATE DEHYDROGENASE 177 U/L (120-246); MAGNESIUM LEVEL 1.8 MG/DL (1.8-2.4)
[2022-08-18 11:16] LABS: ALBUMIN 3.5 G/DL (3.2-5.2); ALKALINE PHOSPHATASE 50 U/L (46-116); ALT/SGPT 40 U/L (7.0-40); AST/SGOT 32 U/L (<34); BILIRUBIN,TOTAL 0.5 MG/DL (0.3-1.2); BLOOD UREA NITROGEN 13 MG/DL (9-23); CALCIUM LEVEL 8.8 MG/DL (8.5-10.1); CARBON DIOXIDE LEVEL 29 MMOL/L (20-31); CHLORIDE LEVEL 103 MMOL/L (98-107); CREATININE FOR GFR 0.69 MG/DL (0.55-1.30); GLOMERULAR FILTRATION RATE > 60.0 (>60); GLUCOSE, FASTING 79 MG/DL (60-100); POTASSIUM SERUM 4.2 MMOL/L (3.5-5.1); SODIUM LEVEL 138 MMOL/L (136-145); TOTAL PROTEIN 6.5 G/DL (5.7-8.2)
[2022-08-18 11:17] LABS: FERRITIN 17.4 NG/ML (7.3-270.7)
[2022-08-18] MEDS ORDERED: CITA40TA7 PO (11:25)
[2022-08-18] MEDS ORDERED: GABA600T4 PO (11:25)
[2022-08-18] MEDS ORDERED: ARIP1TAB10 PO (11:25)
[2022-08-18] MEDS ORDERED: VENTAER INH (11:25)
[2022-08-18] MEDS ORDERED: ALBU2.5V10 INH (11:25)
[2022-08-18] MEDS ORDERED: SUBL300I SC (11:42)
[2022-08-18] MEDS ORDERED: FLUT1INH3 INH (11:42)
[2022-08-18] MEDS ORDERED: PRAZ1CAP PO (11:42)
[2022-08-18] MEDS ORDERED: HOME MED LIST COMPLETE! XX SCH (11:50)
[2022-08-18 15:30] VITALS: O2SAT 90
[2022-08-18 15:35] VITALS: BP 120/80
[2022-08-18] MEDS: CitaloPRAM (CeleXA) 20 MG TAB PO SCH (15:56)
[2022-08-18] MEDS: GABAPENTIN 300 MG CAP PO SCH ×2 (15:56→21:27)
[2022-08-18] MEDS: ARIPiprazole 15 MG TAB (AbiLIFY) PO SCH (16:03)
[2022-08-18] MEDS: methylPREDNISolone 40MG 1ML VIAL IV SCH (18:10)
[2022-08-18] MEDS: ACETAMINOPHEN TAB 650MG DOSE (2X325MG) PO PRN ×2 (18:11→21:27)
[2022-08-18 20:00] VITALS: BP 120/72
[2022-08-18] MEDS: CHLORASEPTIC SPRAY MT PRN (21:34)
[2022-08-18] MEDS: PRAZOSIN 1 MG CAP PO SCH (22:06)
[2022-08-18 22:38] VITALS: O2SAT 94
[2022-08-19] VITALS (12 sets, daily range): BP systolic 106–117; BP diastolic 59–76; O2SAT 88–94
[2022-08-19] MEDS: methylPREDNISolone 40MG 1ML VIAL IV SCH (02:38)
[2022-08-19 06:11] LABS: HEMATOCRIT 41.1 % (36.0-47.0); HEMOGLOBIN 13.1 g/dl (12.0-15.5); MEAN CORPUSCULAR HEMOGLOBIN 28.2 pg (27.0-33.0); MEAN CORPUSCULAR HGB CONC 31.9 g/dl (32.0-36.5); MEAN CORPUSCULAR VOLUME 88.4 fl (80.0-96.0); PLATELET COUNT, AUTOMATED 377 10^3/uL (150-450); RED BLOOD COUNT 4.65 10^6/uL (4.00-5.40); WHITE BLOOD COUNT 12.8 10^3/uL (4.0-10.0)
[2022-08-19 06:31] LABS: MAGNESIUM LEVEL 1.9 MG/DL (1.8-2.4)
[2022-08-19 06:34] LABS: ALBUMIN 3.4 G/DL (3.2-5.2); ALKALINE PHOSPHATASE 51 U/L (46-116); ALT/SGPT 35 U/L (7.0-40); AST/SGOT 20 U/L (<34); BILIRUBIN,TOTAL 0.3 MG/DL (0.3-1.2); BLOOD UREA NITROGEN 16 MG/DL (9-23); CALCIUM LEVEL 9.1 MG/DL (8.5-10.1); CARBON DIOXIDE LEVEL 26 MMOL/L (20-31); CHLORIDE LEVEL 102 MMOL/L (98-107); CREATININE FOR GFR 0.57 MG/DL (0.55-1.30); GLOMERULAR FILTRATION RATE > 60.0 (>60); GLUCOSE, FASTING 143 MG/DL (60-100); POTASSIUM SERUM 4.5 MMOL/L (3.5-5.1); SODIUM LEVEL 136 MMOL/L (136-145); TOTAL PROTEIN 6.5 G/DL (5.7-8.2)
[2022-08-19] MEDS: predniSONE 20 MG TAB PO SCH (09:21)
[2022-08-19] MEDS: CitaloPRAM (CeleXA) 20 MG TAB PO SCH (09:21)
[2022-08-19] MEDS: AZITHROMYCIN 250MG TABLET PO SCH (09:21)
[2022-08-19] MEDS: GABAPENTIN 300 MG CAP PO SCH ×3 (09:21→20:27)
[2022-08-19] MEDS: CHLORASEPTIC SPRAY MT PRN ×2 (09:21→20:35)
[2022-08-19] MEDS: ACETAMINOPHEN TAB 650MG DOSE (2X325MG) PO PRN (09:23)
[2022-08-19] MEDS: ARIPiprazole 15 MG TAB (AbiLIFY) PO SCH (10:11)
[2022-08-19] MEDS: ALBUTEROL 90 MCG/ACT 8GM HFA INHALER INH PRN ×2 (12:31→21:06)
[2022-08-19] MEDS: BENZONATATE 100MG CAPSULE PO SCH ×2 (16:54→20:27)
[2022-08-19] MEDS: PRAZOSIN 1 MG CAP PO SCH (20:28)
[2022-08-20 05:00] VITALS: BP 108/59
[2022-08-20] MEDS ORDERED: SODIUM CHLORIDE NASAL 0.65% SPRAY BTL (OCEAN) PRN (05:20)
[2022-08-20 06:17] LABS: BASO % 0.2 % (0.0-1.0); EOS % 0.1 % (0.0-3.0); HEMATOCRIT 37.8 % (36.0-47.0); HEMOGLOBIN 11.9 g/dl (12.0-15.5); LYMPH # 3.8 10^3/uL (1.5-5.0); LYMPH % 24.8 % (24.0-44.0); MEAN CORPUSCULAR HEMOGLOBIN 28.1 pg (27.0-33.0); MEAN CORPUSCULAR HGB CONC 31.5 g/dl (32.0-36.5); MEAN CORPUSCULAR VOLUME 89.4 fl (80.0-96.0); MONO % 6.8 % (2.0-8.0); NEUTROPHILS # 10.4 10^3/uL (1.5-8.5); NEUTROPHILS % 67.6 % (36.0-66.0); PLATELET COUNT, AUTOMATED 318 10^3/uL (150-450); RED BLOOD COUNT 4.23 10^6/uL (4.00-5.40); WHITE BLOOD COUNT 15.4 10^3/uL (4.0-10.0)
[2022-08-20 06:39] LABS: BLOOD UREA NITROGEN 13 MG/DL (9-23); CALCIUM LEVEL 8.4 MG/DL (8.5-10.1); CARBON DIOXIDE LEVEL 28 MMOL/L (20-31); CHLORIDE LEVEL 105 MMOL/L (98-107); CREATININE FOR GFR 0.58 MG/DL (0.55-1.30); GLOMERULAR FILTRATION RATE > 60.0 (>60); GLUCOSE, FASTING 95 MG/DL (60-100); POTASSIUM SERUM 3.9 MMOL/L (3.5-5.1); SODIUM LEVEL 141 MMOL/L (136-145)
[2022-08-20] MEDS: AZITHROMYCIN 250MG TABLET PO SCH (08:24)
[2022-08-20] MEDS: ARIPiprazole 15 MG TAB (AbiLIFY) PO SCH (08:24)
[2022-08-20] MEDS: BENZONATATE 100MG CAPSULE PO SCH (08:24)
[2022-08-20] MEDS: GABAPENTIN 300 MG CAP PO SCH (08:24)
[2022-08-20] MEDS: predniSONE 20 MG TAB PO SCH (08:24)
[2022-08-20] MEDS: CitaloPRAM (CeleXA) 20 MG TAB PO SCH (08:25)
[2022-08-20] MEDS ORDERED: AZIT-12 PO (11:41)
[2022-08-20] MEDS ORDERED: PRED10TA2 PO (11:41)
[2022-08-20] MEDS: ALBUTEROL 90 MCG/ACT 8GM HFA INHALER INH PRN (11:52)
== END 2022-08-20 12:23 | disposition home or self-care (01) | DRG 144 ==
LOC: EDBD 09:32 → M ED 09:32 → M ED INP 09:33 → ENRESERV 14:25 → M MSPAV 15:14 → EEVIPCON 08-19 07:42 → OBSVTOIN 08-19 07:42
PROVIDERS: ADMIT Internal Medicine; ATTEND Internal Medicine
DX: J20.8 Acute bronchitis due to other specified organisms (principal); J45.901 Unspecified asthma with (acute) exacerbation; R09.02 Hypoxemia; B97.29 Other coronavirus as the cause of diseases classified elsewhere; G43.909 Migraine, unspecified, not intractable, without status migrainosus; Z88.8 Allergy status to other drugs, medicaments and biological substances; Z79.899 Other long term (current) drug therapy; Z87.891 Personal history of nicotine dependence; F43.10 Post-traumatic stress disorder, unspecified; F41.9 Anxiety disorder, unspecified; F32.A Depression, unspecified

== ENCOUNTER 2022-09-02 15:48 | Emergency (ER) | payer OTHER ==
[~2022-09-02] VITALS: Ht 160 cm; Wt 89.1 kg
[~2022-09-02 15:48] MED LIST changes: +ALBU2.5V10 INH; +ARIP1TAB10 PO; +FLUT1INH3 INH; +PRAZ1CAP PO; +PRED10TA2 PO; +SUBL300I SC; +VENTAER INH
[2022-09-02 16:15] LABS: BASO % 0.4 % (0.0-1.0); EOS # 0.1 10^3/uL (0.0-0.5); EOS % 0.7 % (0.0-3.0); HEMATOCRIT 42.5 % (36.0-47.0); HEMOGLOBIN 13.2 g/dl (12.0-15.5); LYMPH % 20.8 % (24.0-44.0); MEAN CORPUSCULAR HGB CONC 31.1 g/dl (32.0-36.5); MEAN CORPUSCULAR VOLUME 90.2 fl (80.0-96.0); MONO # 0.5 10^3/uL (0.0-0.8); NEUTROPHILS # 7.1 10^3/uL (1.5-8.5); NEUTROPHILS % 72.7 % (36.0-66.0); PLATELET COUNT, AUTOMATED 339 10^3/uL (150-450); RED BLOOD COUNT 4.71 10^6/uL (4.00-5.40); WHITE BLOOD COUNT 9.7 10^3/uL (4.0-10.0)
[2022-09-02 16:42] LABS: BLOOD UREA NITROGEN 16 MG/DL (9-23); CALCIUM LEVEL 8.8 MG/DL (8.5-10.1); CARBON DIOXIDE LEVEL 30 MMOL/L (20-31); CHLORIDE LEVEL 104 MMOL/L (98-107); CREATININE FOR GFR 0.63 MG/DL (0.55-1.30); GLOMERULAR FILTRATION RATE > 60.0 (>60); GLUCOSE, FASTING 98 MG/DL (60-100); POTASSIUM SERUM 4.5 MMOL/L (3.5-5.1); SODIUM LEVEL 139 MMOL/L (136-145)
[2022-09-02 16:49] LABS: HCG, SERUM QUALITATIVE NEGATIVE (NEGATIVE)
[2022-09-02 18:30] VITALS: BP 127/74
== END 2022-09-02 20:59 | disposition home or self-care (01) ==
LOC: M ED 15:48
DX: R20.2 Paresthesia of skin (principal); G43.909 Migraine, unspecified, not intractable, without status migrainosus; J45.909 Unspecified asthma, uncomplicated; F43.10 Post-traumatic stress disorder, unspecified; F41.9 Anxiety disorder, unspecified; F19.10 Other psychoactive substance abuse, uncomplicated; Z88.6 Allergy status to analgesic agent; Z79.52 Long term (current) use of systemic steroids; Z79.810 Long term (current) use of selective estrogen receptor modulators (SERMs); Z79.899 Other long term (current) drug therapy

== ENCOUNTER → 2022-09-07 | Outpatient (REF) | payer OTHER ==
[2022-09-07 17:52] LABS: HEMATOCRIT 40.2 % (36.0-47.0); MEAN CORPUSCULAR HEMOGLOBIN 28.7 pg (27.0-33.0); MEAN CORPUSCULAR HGB CONC 32.3 g/dl (32.0-36.5); MEAN CORPUSCULAR VOLUME 88.7 fl (80.0-96.0); PLATELET COUNT, AUTOMATED 355 10^3/uL (150-450); RED BLOOD COUNT 4.53 10^6/uL (4.00-5.40); WHITE BLOOD COUNT 7.5 10^3/uL (4.0-10.0)
[2022-09-07 18:19] LABS: ALBUMIN 3.7 G/DL (3.2-5.2); ALKALINE PHOSPHATASE 51 U/L (46-116); ALT/SGPT 34 U/L (7.0-40); AST/SGOT 37 U/L (<34); BILIRUBIN,DIRECT 0.2 MG/DL (<0.4); BILIRUBIN,TOTAL 0.4 MG/DL (0.3-1.2); BLOOD UREA NITROGEN 16 MG/DL (9-23); CALCIUM LEVEL 8.8 MG/DL (8.5-10.1); CARBON DIOXIDE LEVEL 29 MMOL/L (20-31); CHLORIDE LEVEL 103 MMOL/L (98-107); CREATININE FOR GFR 0.67 MG/DL (0.55-1.30); GLOMERULAR FILTRATION RATE > 60.0 (>60); GLUCOSE, FASTING 99 MG/DL (60-100); POTASSIUM SERUM 4.2 MMOL/L (3.5-5.1); SODIUM LEVEL 139 MMOL/L (136-145); TOTAL PROTEIN 6.7 G/DL (5.7-8.2)
[2022-09-07 18:26] LABS: HEPATITIS B SURFACE ANTIBODY NEGATIVE (POSITIVE)
[2022-09-07 18:37] LABS: HEPATITIS B SURFACE ANTIGEN NEGATIVE (NEGATIVE)
[2022-09-07 18:50] LABS: HIV 1&2 SCREEN CENTAUR NEGATIVE (NEGATIVE)
== END ==
LOC: M LAB REF 17:10
PROVIDERS: ATTEND Pediatrics
DX: B19.20 Unspecified viral hepatitis C without hepatic coma (principal); G51.9 Disorder of facial nerve, unspecified

== ENCOUNTER 2022-11-09 00:26 | Emergency (ER) | payer OTHER ==
[~2022-11-09] VITALS: Ht 160 cm; Wt 91.7 kg
[2022-11-09 00:41] VITALS: BP 162/87
== END 2022-11-09 01:56 | disposition left against medical advice (07) ==
LOC: M ED 00:26 → EDBD 00:26 → M ED 01:56
DX: Z53.21 Procedure and treatment not carried out due to patient leaving prior to being seen by health care provider (principal)

== ENCOUNTER 2022-12-29 08:52 | Emergency (ER) | payer OTHER ==
[~2022-12-29] VITALS: Ht 160 cm; Wt 90.0 kg
[2022-12-29 09:13] VITALS: BP 136/83
[2022-12-29] MEDS ORDERED: AMOX875T2 PO (10:29)
== END 2022-12-29 10:20 | disposition left against medical advice (07) ==
LOC: EDBD 08:52 → M ED 08:52
DX: S60.221A Contusion of right hand, initial encounter (principal); S60.222A Contusion of left hand, initial encounter; S09.90XA Unspecified injury of head, initial encounter; Y04.1XXA Assault by human bite, initial encounter; I10 Essential (primary) hypertension; J45.909 Unspecified asthma, uncomplicated; F31.9 Bipolar disorder, unspecified; Z88.6 Allergy status to analgesic agent; Z53.9 Procedure and treatment not carried out, unspecified reason; Z79.52 Long term (current) use of systemic steroids; Z79.891 Long term (current) use of opiate analgesic; Z79.899 Other long term (current) drug therapy

== ENCOUNTER → 2023-02-15 | Outpatient (CLI) | payer MEDICAID ==
[~2023-02-15] MED LIST changes: +AMOX875T2 PO; +DICY-61 PO; -DICY10CA13 PO
== END ==
LOC: M OUTALCOH 07:51
PROVIDERS: ATTEND Psychiatry & Neurology Psychiatry
DX: F10.10 Alcohol abuse, uncomplicated (principal)

== ENCOUNTER 2023-02-22 04:10 | Observation (INO) | payer MEDICAID, OTHER ==
[~2023-02-22] VITALS: Ht 160 cm; Wt 90.2 kg
[2023-02-22] MEDS ORDERED: IPRATROPIUM 0.5MG/ALBUTEROL 2.5MG INH SOL UD 3ML (DUONEB) NEB ONE ×2 (04:30→07:25)
[2023-02-22] MEDS ORDERED: PRED20TA PO (05:56)
[2023-02-22 06:09] LABS: BASO % 0.4 % (0.0-1.0); EOS # 0.3 10^3/uL (0.0-0.5); EOS % 3.8 % (0.0-3.0); HEMOGLOBIN 13.6 g/dl (12.0-15.5); LYMPH # 1.7 10^3/uL (1.5-5.0); LYMPH % 20.1 % (24.0-44.0); MEAN CORPUSCULAR HEMOGLOBIN 28.8 pg (27.0-33.0); MEAN CORPUSCULAR HGB CONC 32.4 g/dl (32.0-36.5); MEAN CORPUSCULAR VOLUME 88.8 fl (80.0-96.0); MONO # 0.3 10^3/uL (0.0-0.8); MONO % 4.1 % (2.0-8.0); NEUTROPHILS # 5.9 10^3/uL (1.5-8.5); NEUTROPHILS % 71.2 % (36.0-66.0); PLATELET COUNT, AUTOMATED 298 10^3/uL (150-450); RED BLOOD COUNT 4.73 10^6/uL (4.00-5.40); WHITE BLOOD COUNT 8.3 10^3/uL (4.0-10.0)
[2023-02-22 06:37] LABS: BLOOD UREA NITROGEN 10 MG/DL (9-23); CALCIUM LEVEL 8.5 MG/DL (8.5-10.1); CARBON DIOXIDE LEVEL 28 MMOL/L (20-31); CHLORIDE LEVEL 106 MMOL/L (98-107); CREATININE FOR GFR 0.54 MG/DL (0.55-1.30); GLOMERULAR FILTRATION RATE > 60.0 (>60); GLUCOSE, FASTING 92 MG/DL (60-100); POTASSIUM SERUM 4.1 MMOL/L (3.5-5.1); SODIUM LEVEL 141 MMOL/L (136-145)
[2023-02-22 06:41] LABS: HCG, SERUM QUALITATIVE NEGATIVE (NEGATIVE)
[2023-02-22] MEDS ORDERED: ALBUTEROL SULFATE 2.5MG/0.5ML INH NEB SOLN NEB ONE (06:45)
[2023-02-22] MEDS ORDERED: ALBUTEROL SULFATE 2.5MG/0.5ML INH NEB SOLN INH ONE (07:25)
[2023-02-22] MEDS ORDERED: ISOVUE-370 76% 100ML VIAL As Ordered ONE (08:00)
[2023-02-22 08:07] LABS: ABG BASE EXCESS 0.8 (-2.0-2.0); ABG HCO3 23.4 MMOL/L (22.0-26.0); ABG O2 SATURATION 92.9 % (95.0-99.0); ABG PARTIAL PRESSURE CO2 32.1 mmHg (35.0-45.0); ABG PARTIAL PRESSURE O2 61.6 mmHg (75.0-100.0); ABG TOTAL CO2 24.4 MMOL/L (22.0-29.0); ABG pH (ARTERIAL) 7.481 UNITS (7.350-7.450)
[2023-02-22] MEDS ORDERED: MED REC IN PROGRESS XX SCH (09:25)
[2023-02-22] MEDS ORDERED: SUBO12MI SL (10:18)
[2023-02-22] MEDS ORDERED: HOME MED LIST COMPLETE! XX SCH (10:25)
[2023-02-22] MEDS ORDERED: ALBUTEROL 90 MCG/ACT 8GM HFA INHALER INH PRN (11:10)
[2023-02-22] MEDS ORDERED: ALBUTEROL SULFATE 2.5MG/0.5ML INH NEB SOLN INH PRN (11:10)
[2023-02-22 11:47] LABS: PROCALCITONIN <0.04 ng/ml
[2023-02-22] MEDS: predniSONE 20 MG TAB PO SCH (13:24)
[2023-02-22] MEDS: ARIPiprazole 15 MG TAB (AbiLIFY) PO SCH (13:24)
[2023-02-22] MEDS: CitaloPRAM (CeleXA) 20 MG TAB PO SCH (13:24)
[2023-02-22] MEDS: BUPRENORPHINE/NALOXONE 8-2MG SUBLINGUAL TABLET(SUBOXONE) SL SCH (13:24)
[2023-02-22] MEDS: PRAZOSIN 1 MG CAP PO PRN (13:25)
[2023-02-22] MEDS: ADVAIR HFA 230/21MCG INHALER INH SCH ×2 (13:50→20:44)
[2023-02-22] MEDS: IPRATROPIUM 0.5MG/ALBUTEROL 2.5MG INH SOL UD 3ML (DUONEB) NEB SCH ×2 (13:50→20:43)
[2023-02-22 18:19] VITALS: O2SAT 96
[2023-02-22] MEDS ORDERED: NICOTINE 21MG/24HR 1 EA TRANSDERMAL TD PRN (21:00)
[2023-02-22 22:00] VITALS: BP 110/62; TEMP 98.2; O2SAT 92
[2023-02-23] MEDS: IPRATROPIUM 0.5MG/ALBUTEROL 2.5MG INH SOL UD 3ML (DUONEB) NEB SCH ×3 (01:00→08:14)
[2023-02-23 06:00] VITALS: BP 96/43; TEMP 97.9; O2SAT 95
[2023-02-23 06:36] LABS: BASO % 0.2 % (0.0-1.0); EOS % 0.1 % (0.0-3.0); HEMATOCRIT 39.4 % (36.0-47.0); HEMOGLOBIN 12.7 g/dl (12.0-15.5); LYMPH # 2.4 10^3/uL (1.5-5.0); LYMPH % 17.9 % (24.0-44.0); MEAN CORPUSCULAR HGB CONC 32.2 g/dl (32.0-36.5); MONO % 7.6 % (2.0-8.0); NEUTROPHILS # 10.1 10^3/uL (1.5-8.5); NEUTROPHILS % 73.8 % (36.0-66.0); PLATELET COUNT, AUTOMATED 300 10^3/uL (150-450); RED BLOOD COUNT 4.38 10^6/uL (4.00-5.40); WHITE BLOOD COUNT 13.7 10^3/uL (4.0-10.0)
[2023-02-23 06:57] LABS: BLOOD UREA NITROGEN 13 MG/DL (9-23); CALCIUM LEVEL 8.3 MG/DL (8.5-10.1); CARBON DIOXIDE LEVEL 26 MMOL/L (20-31); CHLORIDE LEVEL 104 MMOL/L (98-107); CREATININE FOR GFR 0.46 MG/DL (0.55-1.30); GLOMERULAR FILTRATION RATE > 60.0 (>60); GLUCOSE, FASTING 121 MG/DL (60-100); POTASSIUM SERUM 4.4 MMOL/L (3.5-5.1); SODIUM LEVEL 139 MMOL/L (136-145)
[2023-02-23] MEDS: ADVAIR HFA 230/21MCG INHALER INH SCH (08:06)
[2023-02-23] MEDS: predniSONE 20 MG TAB PO SCH (08:51)
[2023-02-23] MEDS: CitaloPRAM (CeleXA) 20 MG TAB PO SCH (08:51)
[2023-02-23] MEDS: ARIPiprazole 15 MG TAB (AbiLIFY) PO SCH (08:51)
[2023-02-23] MEDS: BUPRENORPHINE/NALOXONE 8-2MG SUBLINGUAL TABLET(SUBOXONE) SL SCH (08:51)
[2023-02-23 08:53] VITALS: BP 125/70
[2023-02-23] MEDS: PRAZOSIN 1 MG CAP PO PRN (08:53)
[2023-02-23] MEDS ORDERED: PRED10TA2 PO (09:36)
[2023-02-23] MEDS ORDERED: ADV100INH INH (09:36)
[2023-02-23 09:49] VITALS: BP 125/70; O2SAT 96
[2023-02-23] MEDS ORDERED: VENTAER INH (12:44)
[2023-02-23] MEDS ORDERED: ENOXAPARIN 40MG/0.4ML SYRINGE (J1650 PER 10MG) SC SCH (21:00)
== END 2023-02-23 12:55 | disposition home health service (06) ==
LOC: M ED 04:10 → M ED INP 04:11 → M MS5PR 15:45
PROVIDERS: ADMIT Internal Medicine; ATTEND Internal Medicine
DX: J96.01 Acute respiratory failure with hypoxia (principal); J45.901 Unspecified asthma with (acute) exacerbation; I10 Essential (primary) hypertension; F19.10 Other psychoactive substance abuse, uncomplicated; E66.9 Obesity, unspecified; F17.210 Nicotine dependence, cigarettes, uncomplicated; F43.10 Post-traumatic stress disorder, unspecified; F41.9 Anxiety disorder, unspecified; F32.A Depression, unspecified; Z79.51 Long term (current) use of inhaled steroids; Z79.52 Long term (current) use of systemic steroids; Z79.899 Other long term (current) drug therapy; Z88.8 Allergy status to other drugs, medicaments and biological substances
CPT/HCPCS: 36415; 36600; 71045; 71275; 80048; 82803; 84145; 84703; 85025; 87486; 87581; 87633; 87798; 94640; 99285; J7512; Q9967